=== PATIENT | female | born 1955 | race African-American/Black ===

== ENCOUNTER → 2016-08-04 | Outpatient (CLI) | payer BC, OTHER | LOC: RAD 15:29 | PROVIDERS: ATTEND Orthopaedic Surgery | DX: M54.2 Cervicalgia (principal); M47.892 Other spondylosis, cervical region | CPT/HCPCS: 71550; 72141 ==

== ENCOUNTER 2018-03-11 22:14 | Inpatient (IN) | payer BC, OTHER ==
[2018-03-11] MEDS ORDERED: NITROGLYCERIN/D5W 50 MG/250 ML RTUINJ IV ONE (22:23)
[2018-03-11] MEDS ORDERED: FUROSEMIDE INJ/PF 20 MG/2 ML SDV IV ONE (22:28)
--- NOTE | 2018-03-11 22:31 | ER Document Report ---
ED General - General Chief Complaint: Shortness Of Breath Stated Complaint: DIFFICULTY BREATHING Time Seen by Provider: 03/11/18 22:27 Cannot obtain history due to: Unstable vital signs Notes: Patient is a 62-year old female with a past medical history of hypertension which has been untreated for multiple years who presents in severe moderate to severe respiratory distress. History is limited on initial assessment secondary to the degree of the patient's respiratory distress. She describes her symptoms as starting shortly just prior to arrival and has been an abrupt onset of shortness of breath and coughing. She states this started when she was trying to lay down and go to sleep. She states that it was a sensation of choking and inability to take a deep breath. She denies any associated chest pain. Nothing seemed to improve or worsen symptoms. She denies any history of similar symptoms in the past. She does not have a general doctor. She denies known history of congestive heart failure or chronic kidney disease. States that she stopped taking her blood pressure medications years ago because her blood pressure was controlled. TRAVEL OUTSIDE OF THE [place] IN LAST 30 DAYS: No - Related Data Allergies/Adverse Reactions: aspirin [Aspirin] Adverse Reaction (Verified 03/11/18 22:26) Past Medical History - General Information source: Patient - Social History Smoking Status: Never Smoker Frequency of alcohol use: None Drug Abuse: None Lives with: Spouse/Significant other Family History: Reviewed & Not Pertinent - Past Medical History Cardiac Medical History: Reports: Hx Hypertension - Immunizations Immunizations up to date: Yes Hx Diphtheria, Pertussis, Tetanus Vaccination: Yes Review of Systems - Review of Systems Notes: Constitutional: Negative for fever. HENT: Negative for sore throat. Eyes: Negative for visual changes. Cardiovascular: Negative for chest pain. Respiratory: Positive for shortness of breath and cough Gastrointestinal: Negative for abdominal pain, vomiting or diarrhea. Genitourinary: Negative for dysuria. Musculoskeletal: Negative for back pain. Skin: Negative for rash. Neurological: Negative for headaches, weakness or numbness. 10 point ROS negative except as marked above and in HPI. Physical Exam - Vital signs Vitals: Temp Pulse Resp BP Pulse Ox 98.4 F 116 H 40 H 229/139 H 90 L 03/11/18 22:15 03/11/18 22:15 03/11/18 22:15 03/11/18 22:15 03/11/18 22:15 Interpretation: Hypertensive, Tachycardic, Hypoxic, Tachypneic Notes: PHYSICAL EXAMINATION: GENERAL: Patient is unwell in appearance, tachypneic, labored in her breathing HEAD: Atraumatic, normocephalic. EYES: Pupils equal round and reactive to light, extraocular movements intact, sclera anicteric, conjunctiva are normal. ENT: nares patent, oropharynx clear without exudates. Moderately dry mucous membranes. NECK: Normal range of motion, supple without lymphadenopathy LUNGS: Diffuse rales in all lung bettencourt. Moderate to severe respiratory distress breathing approximately 40 times per minute the time of initial evaluation with supraclavicular intercostal retractions. Unable to speak in full sentences. Diffuse B-lines on pleural ultrasound of the bedside. HEART: Regular tachycardia without murmurs ABDOMEN: Soft, nontender, normoactive bowel sounds. No guarding, no rebound. No masses appreciated. EXTREMITIES: Normal range of motion, trace edema in the bilateral lower extremities that is equal and symmetric. No cyanosis. NEUROLOGICAL: No focal neurological deficits. Moves all extremities spontaneously and on command. PSYCH: Moderately anxious SKIN: Warm, Dry, normal turgor, no rashes or lesions noted. Course - Re-evaluation Re-evalutation: 03/11/18 22:29 Patient augmentation as late as I been at the bedside continuously since she came back to the emergency department. In summary this patient presents in acute flash pulmonary edema with associated hypoxia, respiratory distress and marked hypertension. Initial blood pressures were 241 on 163 with associated tachycardia up to 120 bpm. A bedside pleural ultrasound does show diffuse B- lines. Patient has trace edema in the bilateral lower 70s. She has a history of hypertension but has been off medications for quite some years and I do suspect that the patient has new onset or previously undiagnosed congestive heart failure. The patient is not critical in appearance but it does have labored breathing, cannot complete a full sentence due to shortness of breath. Respiratory rate is currently 40 times per minute. She will therefore be immediately placed on BiPAP due to increased intrathoracic pressure and decrease pulmonary edema as well as assist with her work of breathing. I have pushed 1 mg of nitroglycerin IV to begin lowering her blood pressure. She was started nitroglycerin infusion starting at 120 mg/min. Will rapidly uptitrate by 10 mg every 5 minutes until the first pressure has come down to the 160 systolic range. Chest x-ray and labs are pending. Patient is critically ill, will require frequent and regular reassessments. 03/11/18 22:55 Patient's pressures have come down to the 170 systolic. Work of breathing is improving on BiPAP. Will continue to reassess at regular frequency 03/11/18 23:07 Patient's blood pressures are rapidly improving as is her work of breathing. Her blood pressure has come down into the 140s systolic and her nitroglycerin has been down titrated from 130 mg/min to 100 mcg/min. Will continue to reassess at regular intervals. 03/11/18 23:34 Patient's work of breathing has continued to improve dramatically. She is resting comfortably on BiPAP. Pressures and FiO2. Heart rate down to 87. I discussed with Dr. Bernal who has agreed to accept the patient as long as her chemistries are within acceptable limits. - Vital Signs Vital signs: Temp Pulse Resp BP Pulse Ox 97.7 F 87 22 H 171/107 H 99 03/12/18 02:24 03/12/18 02:24 03/12/18 02:24 03/12/18 02:24 03/12/18 02:24 - Laboratory Result Diagrams: 03/11/18 22:20 03/11/18 23:52 Laboratory results interpreted by me: 03/11/18 03/11/18 03/11/18 22:20 22:20 23:52 RDW 15.7 H Potassium 3.5 L BUN 24 H Est GFR (Non-Af Amer) 51 L Glucose 134 H AST 101 H ALT 80 H Creatine Kinase NT-Pro-B Natriuret Pep 2090 H 03/11/18 23:52 RDW Potassium BUN Est GFR (Non-Af Amer) Glucose AST ALT Creatine Kinase 140 H NT-Pro-B Natriuret Pep - Diagnostic Test Radiology reviewed: Image reviewed, Reports reviewed Radiology results interpreted by me: 03/12/18 03:13 Chest x-ray: Cardiomegaly, bilateral pulmonary edema - EKG Interpretation by Me Additional EKG results interpreted by me: 03/12/18 03:13 Sinus tachycardia. Rate 114. LVH. No ST elevations, subtle ST depressions in V6. QTC 480. Critical Care Note - Critical Care Note Total time excluding time spent on procedures (mins): 40 Comments: Critical care time spent obtaining history from patient or surrogate, discussions with consultants, development of treatment plan with patient or surrogate, evaluation of patient's response to treatment, examination of patient , ordering and performing treatments and interventions, ordering and review of laboratory studies, re-evaluation of patient's condition, ordering and review of radiographic studies and review of old charts Discharge - Discharge Clinical Impression: Flash pulmonary edema, Respiratory distress, Hypertensive emergency CHF (congestive heart failure) Qualifiers: Heart failure type: unspecified Heart failure chronicity: acute Qualified Code( s): I50.9 - Heart failure, unspecified Condition: Fair Disposition: ADMITTED INPATIENT Admitting Provider: Hospitalist Unit Admitted: ICU
[2018-03-11 22:33] LABS: ABSOLUTE BASOPHILS # (AUTO) 0.1 10^3/uL (0.0-0.2); ABSOLUTE EOSINOPHILS # (AUTO) 0.2 10^3/uL (0.0-0.6); ABSOLUTE LYMPHOCYTES (AUTO) 2.7 10^3/uL (0.5-4.7); ABSOLUTE MONOCYTES (AUTO) 0.6 10^3/uL (0.1-1.4); ABSOLUTE NEUT (AUTO) 4.8 10^3/uL (1.7-8.2); BASOPHILS % (AUTO) 0.8 % (0-2); EOSINOPHILS % (AUTO) 1.9 % (0-6); HEMATOCRIT 41.1 % (36.0-47.0); HEMOGLOBIN 13.6 g/dL (12.0-15.5); LYMPHOCYTES % (AUTO) 32.4 % (13-45); MEAN CORPUSCULAR HEMOGLOBIN 31.6 pg (27.0-33.4); MEAN CORPUSCULAR HGB CONC 33.2 g/dL (32.0-36.0); MEAN CORPUSCULAR VOLUME 95 fl (80-97); MONOCYTES % (AUTO) 6.8 % (3-13); PLATELET COUNT 197 10^3/uL (150-450); RED BLOOD COUNT 4.32 10^6/uL (3.72-5.28); RED CELL DISTRIBUTION WIDTH 15.7 % (11.5-14.0); SEGMENTED NEUTROPHILS % (AUTO) 58.1 % (42-78); TOTAL CELLS COUNTED % (AUTO) 100 %; WHITE BLOOD COUNT 8.3 10^3/uL (4.0-10.5)
[2018-03-11 22:34] LABS: VENOUS BLOOD HCO3 25.5 mmol/L (20-32); VENOUS BLOOD PCO2 41.6 mmHg (35-63); VENOUS BLOOD PH 7.41 (7.30-7.42)
[2018-03-11 22:35] LABS: VENOUS BLOOD BASE EXCESS 0.7 mmol/L
[2018-03-11 23:03] LABS: TROPONIN I 0.039 ng/mL
[2018-03-11] MEDS ORDERED: ONDANSETRON HCL INJ/PF 4 MG/2 ML SDV ONE (23:04)
--- NOTE | 2018-03-11 23:26 | RADIOLOGY REPORT (SQ) ---
EXAM DESCRIPTION: XR CHEST 1 VIEW COMPLETED DATE/TME: 03/11/2018 22:27 CLINICAL HISTORY: 62 years, Female, sob COMPARISON: None. NUMBER OF VIEWS: TECHNIQUE: LIMITATIONS: None. FINDINGS: There is cardiomegaly and congestive heart failure. There is interstitial pulmonary thickening, probably interstitial edema. No evidence of pulmonary consolidation. The mediastinum is unremarkable. IMPRESSION: Cardiomegaly with CHF and probable interstitial edema. 2010 [email or web address]- All Rights Reserved
[2018-03-12 00:25] LABS: ALANINE AMINOTRANSFERASE 80 U/L (9-52); ALBUMIN 3.8 g/dL (3.5-5.0); ALKALINE PHOSPHATASE 103 U/L (38-126); ANION GAP 11 (5-19); ASPARTATE AMINO TRANSFERASE 101 U/L (14-36); BILIRUBIN,DIRECT 0.2 mg/dL (0.0-0.4); BILIRUBIN,TOTAL 0.5 mg/dL (0.2-1.3); BLOOD UREA NITROGEN 24 mg/dL (7-20); CALCIUM 8.7 mg/dL (8.4-10.2); CARBON DIOXIDE 25 mmol/L (22-30); CHLORIDE 106 mmol/L (98-107); GLUCOSE 134 mg/dL (75-110); POTASSIUM 3.5 mmol/L (3.6-5.0); SODIUM 141.7 mmol/L (137-145); TOTAL PROTEIN 6.9 g/dL (6.3-8.2)
[2018-03-12] MEDS ORDERED: MAG HYDROX/AL HYDROX/SIMETH SUSP 30 ML UDCUP PO PRN (01:01)
[2018-03-12] MEDS ORDERED: IPRATROPIUM/ALBUTEROL 0.5-2.5 MG/3 ML AMPUL NEB PRN (01:01)
[2018-03-12] MEDS ORDERED: ACETAMINOPHEN 325 MG TABLET PO PRN (01:01)
[2018-03-12 01:39] LABS: URINE AMPHETAMINES SCREEN NEGATIVE; URINE BARBITURATES SCREEN NEGATIVE; URINE BENZODIAZEPINES SCREEN NEGATIVE; URINE COCAINE SCREEN NEGATIVE; URINE MARIJUANA (THC) SCREEN NEGATIVE; URINE METHADONE SCREEN NEGATIVE; URINE PHENCYCLIDINE SCREEN NEGATIVE
[2018-03-12] MEDS ORDERED: NITROGLYCERIN 50 MG/D5W 250 ML IV PRN (02:49)
[2018-03-12] MEDS: POTASSIUM CHLORIDE 10 MEQ CAPSULE.ER PO SCH ×3 (03:37→18:21)
[2018-03-12] MEDS: FUROSEMIDE INJ/PF 40 MG/4 ML SDV IV SCH ×3 (03:38→18:20)
--- NOTE | 2018-03-12 04:05 | PDOC H&P ---
History of Present Illness Admission Date/PCP: 03/12/18 01:01 Patient complains of: Shortness of breath History of Present Illness: MIKKI POWER is a 62 year old female with a past medical history of hypertension who presents with 18 hours of nonproductive cough associated with shortness of breath. In the emergency room she is found to have a blood pressure of 129/139 with a pulse of 116, chest x-ray reveals pulmonary edema. She receives IV nitroglycerin and placed on BiPAP. Patient does not have a primary care physician and denies blood pressure medication use for years with the belief that it was cured. She denies chest pain, heat intolerance, weight loss, and otherwise feels well. Past Medical History Cardiac Medical History: Reports: Hypertension Past Surgical History Past Surgical History: Reports: Tubal Ligation Social History Information Source: Patient Lives with: Spouse/Significant other Smoking Status: Never Smoker Cigarettes Packs Per Day: 0.5 Number of Years Smokin Frequency of Alcohol Use: None Hx Recreational Drug Use: No Drugs: None - Advance Directive Resuscitation Status: Full Code Family History Family History: Hypertension Parental Family History Reviewed: Yes Children Family History Reviewed: Yes Sibling(s) Family History Reviewed.: Yes Medication/Allergy Home Medications: Lisinopril [Prinivil 40 mg Tablet] 40 mg PO DAILY 10/16/12 Meclizine HCl [Antivert 12.5 mg Tablet] 1 tab PO DAILY PRN #30 tab 10/17/12 Allergies/Adverse Reactions: aspirin [Aspirin] Adverse Reaction (Verified 03/11/18 22:26) Review of Systems Constitutional: ABSENT: chills, fever(s), headache(s), weight gain, weight loss Eyes: ABSENT: visual disturbances Ears: ABSENT: hearing changes Cardiovascular: ABSENT: chest pain, dyspnea on exertion, edema, orthropnea, palpitations Respiratory: ABSENT: cough, hemoptysis Gastrointestinal: ABSENT: abdominal pain, constipation, diarrhea, hematemesis, hematochezia, nausea, vomiting Genitourinary: ABSENT: dysuria, hematuria Musculoskeletal: ABSENT: joint swelling Integumentary: ABSENT: rash, wounds Neurological: ABSENT: abnormal gait, abnormal speech, confusion, dizziness, focal weakness, syncope Psychiatric: ABSENT: anxiety, depression, homidical ideation, suicidal ideation Endocrine: ABSENT: cold intolerance, heat intolerance, polydipsia, polyuria Hematologic/Lymphatic: ABSENT: easy bleeding, easy bruising Physical Exam Vital Signs: Temp Pulse Resp BP Pulse Ox 97.7 F 87 22 H 171/107 H 99 03/12/18 02:24 03/12/18 02:24 03/12/18 02:24 03/12/18 02:24 03/12/18 02:24 Intake & Output 03/10/18 03/11/18 03/12/18 11:59 11:59 11:59 Intake Total 145 Output Total 228 Balance -83 Weight 74.9 kg General appearance: PRESENT: cooperative, mild distress. ABSENT: disheveled, hard of hearing, severe distress Head exam: PRESENT: atraumatic, normocephalic Eye exam: PRESENT: conjunctiva pink, EOMI, PERRLA. ABSENT: scleral icterus Ear exam: PRESENT: normal external ear exam Mouth exam: PRESENT: moist, tongue midline Neck exam: PRESENT: JVD. ABSENT: carotid bruit, lymphadenopathy, thyromegaly Respiratory exam: PRESENT: accessory muscle use, crackles, symmetrical, tachypnea, wheezes. ABSENT: chest wall tenderness, rhonchi Cardiovascular exam: PRESENT: gallop, +S1, +S2, tachycardia Pulses: PRESENT: normal dorsalis pedis pul Vascular exam: PRESENT: normal capillary refill GI/Abdominal exam: PRESENT: normal bowel sounds, soft. ABSENT: distended, guarding, mass, organolmegaly, rebound, tenderness Rectal exam: PRESENT: deferred Extremities exam: PRESENT: full ROM, +1 edema. ABSENT: calf tenderness, clubbing, pedal edema Neurological exam: PRESENT: alert, awake, oriented to person, oriented to place , oriented to time, oriented to situation, CN II-XII grossly intact. ABSENT: motor sensory deficit Psychiatric exam: PRESENT: appropriate affect, normal mood. ABSENT: homicidal ideation, suicidal ideation Skin exam: PRESENT: dry, intact, warm. ABSENT: cyanosis, rash Results Impressions: Chest X-Ray 03/11/18 22:27 IMPRESSION: Cardiomegaly with CHF and probable interstitial edema. 2010 [employer]- All Rights Reserved Assessment & Plan - Diagnosis (1) Hypertensive emergency Is this a current diagnosis for this admission?: Yes Plan: Secondary to noncompliance, IV nitroglycerin, PHYLLIS inhibitor, Lasix and hydralazine. (2) CHF (congestive heart failure) Qualifiers: Heart failure type: unspecified Heart failure chronicity: acute Qualified Code(s): I50.9 - Heart failure, unspecified Is this a current diagnosis for this admission?: Yes Plan: Likely diastolic failure, follow-up 2D echo, (3) Flash pulmonary edema Is this a current diagnosis for this admission?: Yes Plan: Secondary to #1, optimize blood pressure, volume, heart rate and education (4) Respiratory distress Is this a current diagnosis for this admission?: Yes Plan: Secondary to #1, education - Time Time Spent: 50 to 70 Minutes - Inpatient Certification Medical Necessity: Need Close Monitoring Due to Risk of Patient Decompensation
[2018-03-12] MEDS: HEPARIN SOD (PORCINE) 5,000 UNIT/ML 1 ML SYRINGE SUBCUT SCH ×3 (05:33→23:58)
[2018-03-12] MEDS: HYDRALAZINE HCL INJ/PF 20 MG/1 ML SDV IV PRN (05:33)
[2018-03-12 06:04] LABS: ABSOLUTE LYMPHOCYTES (AUTO) 1.1 10^3/uL (0.5-4.7); ABSOLUTE MONOCYTES (AUTO) 0.5 10^3/uL (0.1-1.4); ABSOLUTE NEUT (AUTO) 5.7 10^3/uL (1.7-8.2); BASOPHILS % (AUTO) 0.4 % (0-2); EOSINOPHILS % (AUTO) 0.2 % (0-6); HEMATOCRIT 36.3 % (36.0-47.0); HEMOGLOBIN 12.3 g/dL (12.0-15.5); LYMPHOCYTES % (AUTO) 15.5 % (13-45); MEAN CORPUSCULAR HEMOGLOBIN 31.6 pg (27.0-33.4); MEAN CORPUSCULAR HGB CONC 33.8 g/dL (32.0-36.0); MEAN CORPUSCULAR VOLUME 94 fl (80-97); MONOCYTES % (AUTO) 6.2 % (3-13); PLATELET COUNT 157 10^3/uL (150-450); RED BLOOD COUNT 3.89 10^6/uL (3.72-5.28); RED CELL DISTRIBUTION WIDTH 15.3 % (11.5-14.0); SEGMENTED NEUTROPHILS % (AUTO) 77.7 % (42-78); TOTAL CELLS COUNTED % (AUTO) 100 %; WHITE BLOOD COUNT 7.4 10^3/uL (4.0-10.5)
[2018-03-12 06:35] LABS: ANION GAP 9 (5-19); BLOOD UREA NITROGEN 24 mg/dL (7-20); CALCIUM 8.8 mg/dL (8.4-10.2); CARBON DIOXIDE 27 mmol/L (22-30); CHLORIDE 106 mmol/L (98-107); GLUCOSE 119 mg/dL (75-110); POTASSIUM 4.2 mmol/L (3.6-5.0); SODIUM 142.1 mmol/L (137-145)
[2018-03-12 06:44] LABS: CREATINE KINASE MB 1.31 ng/mL (<4.55)
[2018-03-12 06:54] LABS: TROPONIN I 0.049 ng/mL
[2018-03-12] MEDS: IPRATROPIUM/ALBUTEROL 0.5-2.5 MG/3 ML AMPUL NEB SCH ×2 (08:16→15:59)
[2018-03-12] MEDS ORDERED: AMLODIPINE BESYLATE 5 MG TABLET PO ONE (09:30)
[2018-03-12] MEDS ORDERED: LISINOPRIL 10 MG TABLET PO SCH (10:00)
--- NOTE | 2018-03-12 10:00 | EKG REPORT ---
SEVERITY:- ABNORMAL ECG - SINUS TACHYCARDIA BIATRIAL ABNORMALITIES LVH WITH SECONDARY REPOLARIZATION ABNORMALITY : Confirmed by: Beto Linton MD 12-Mar-2018 09:59:40
[2018-03-12 13:49] LABS: CREATINE KINASE MB 1.15 ng/mL (<4.55); TROPONIN I 0.049 ng/mL
--- NOTE | 2018-03-12 14:11 | PDOC CONSULTATION ---
Consultation Consult Date: 03/12/18 Attending physician:: JINA RICHARDS Consult reason:: Severe hypertension History of Present Illness Admission Date/PCP: 03/12/18 01:01 Patient complains of: Shortness of breath History of Present Illness: MIKKI POWER is a 62 year old female with a past medical history of hypertension who presents with 18 hours of nonproductive cough associated with shortness of breath. In the emergency room she is found to have a blood pressure of 229/139 with a pulse of 116, chest x-ray reveals pulmonary edema. She receives IV nitroglycerin and placed on BiPAP. Patient does not have a primary care physician and denies blood pressure medication use for years with the belief that it was cured. She denies chest pain, heat intolerance, weight loss, and otherwise feels well. I was asked to evaluate this patient because of mildly abnormal troponin I elevation and pulmonary edema. Patient denies any prior history of heart problems such as myocardial infarction , congestive heart failure, angina, strokes, mini strokes, heart rhythm problem , blood clots in the legs are in the lungs. Patient claims to be fairly healthy except for diagnosis of hypertension. Past Medical History Cardiac Medical History: Reports: Hypertension Past Surgical History Past Surgical History: Reports: Tubal Ligation Social History Information Source: Patient Lives with: Spouse/Significant other Smoking Status: Never Smoker Cigarettes Packs Per Day: 0.5 Number of Years Smokin Frequency of Alcohol Use: None Hx Recreational Drug Use: No Drugs: None - Advance Directive Resuscitation Status: Full Code Surrogate healthcare decision maker:: Patient's Family History Family History: Hypertension Parental Family History Reviewed: Yes Children Family History Reviewed: Yes Sibling(s) Family History Reviewed.: Yes Medication/Allergy Home Medications: Multivitamin [Multivitamins] 1 each PO DAILY 03/12/18 Carvedilol [Coreg 12.5 mg Tablet] 12.5 mg PO Q12 30 Days #60 tablet 03/15/18 Losartan Potassium [Cozaar 50 mg Tablet] 100 mg PO DAILY 30 Days #30 tablet Spironolactone [Aldactone 25 mg Tablet] 12.5 mg PO DAILY 30 Days #15 tablet Allergies/Adverse Reactions: aspirin [Aspirin] Adverse Reaction (Verified 03/11/18 22:26) Review of Systems Review of Systems: Please see history of present illness and past medical history as wall. Constitutional: No fever or chills reported. Head : No recent chronic headaches, recent head injury. Eyes: No recent eye pain, diplopia, redness, discharge, acute visual changes. Ears: No recent chronic ear pain, acute hearing loss, ear discharge. Oral cavity: No recent ulcerations, bleeding, oral cavity discomfort. Neck: No recent acute neck pain reported. Hematologic: No recent easy bruising or bleeding. Lymphatic: No recent lymph node enlargement reported. Cardiovascular system review: See history of present illness. Respiratory system review: No hemoptysis or blood clots in the lungs reported. Mild Shortness of breath on exertion Gastrointestinal system review: Negative for any recent acute hematemesis, melena. Genitourinary system review: No recent acute or chronic hematuria, flank pain, UTI etc. reported. Skin system review: Negative for any recent abnormal bruising, no rash, no pruritus reported. Neurologic: No prior history of strokes, mini strokes, seizure disorder. Psychologic: No history of major psychosis or major depression reported. Musculoskeletal: Minor aches and pains reported. No acute joint swelling reported. Endocrine: No recent polyuria, polydipsia, recent heat or cold intolerance. Physical Exam Vital Signs: Temp Pulse Resp BP Pulse Ox 100.5 F H 92 11 L 146/82 H 94 03/12/18 12:00 03/12/18 12:00 03/12/18 12:00 03/12/18 12:00 03/12/18 12:00 Intake & Output 03/11/18 03/12/18 03/13/18 06:59 06:59 06:59 Intake Total 187 420 Output Total 778 520 Balance -591 -100 Weight 74.9 kg Exam: GENERAL: well-nourished and in no acute distress. Alert and oriented x3 HEAD: Atraumatic, normocephalic. EYES: [place], sclera anicteric, conjunctiva are normal. ENT: Moist mucous membranes. No oral ulcerations or bleeding gums noted. No obvious ear, nose or throat abnormalities noted. NECK: supple without lymphadenopathy. Trachea is central. No cervical or axillary lymphadenopathy noted. Carotids are 2+, JVD WNL LUNGS: Breath sounds clear bilaterally. No wheezes rales or rhonchi noted. No significant dullness noted on percussion. CHEST: Palpation of the chest wall shows no significant chest wall tenderness. HEART: [place] [employer], No PSH, 1/6 ABDIAZIZ aortic area, 1/6 hickey systolic murmur mitral area, no rubs, no gallops. ABDOMEN: Soft, no significant tenderness appreciated, normoactive bowel sounds. No guarding, no rebound. No rigidity noted . No masses appreciated. EXTREMITIES: Pedal pulses are 1-2+, no calf tenderness noted. No clubbing or cyanosis. negative pedal edema noted NEUROLOGICAL: Focused neurological exam showed no significant neurologic deficit. Normal speech, no focal weakness appreciated. PSYCH: Normal mood, normal affect. Judgment and insight within normal limits. SKIN: No significant ecchymosis, skin is noted to be warm. MUSCULOSKELETAL EXAM: No significant acute joint swelling noted. Results Laboratory Results: 03/12/18 05:58 03/12/18 05:58 03/12/18 03/12/18 03/12/18 05:58 05:58 05:58 WBC 7.4 RBC 3.89 Hgb 12.3 Hct 36.3 MCV 94 MCH 31.6 MCHC 33.8 RDW 15.3 H Plt Count 157 Seg Neutrophils % 77.7 Lymphocytes % 15.5 Monocytes % 6.2 Eosinophils % 0.2 Basophils % 0.4 Absolute Neutrophils 5.7 Absolute Lymphocytes 1.1 Absolute Monocytes 0.5 Absolute Eosinophils 0.0 Absolute Basophils 0.0 Sodium 142.1 Potassium 4.2 Chloride 106 Carbon Dioxide 27 Anion Gap 9 BUN 24 H Creatinine 1.17 Est GFR ( Amer) 57 L Est GFR (Non-Af Amer) 47 L Glucose 119 H Calcium 8.8 Magnesium 1.8 03/12/18 03/12/18 03/12/18 05:58 05:58 12:00 Creatine Kinase 124 130 CK-MB (CK-2) 1.31 Troponin I 0.049 03/12/18 12:00 Creatine Kinase CK-MB (CK-2) 1.15 Troponin I 0.049 EKG Comments: Sinus rhythm, LVH with secondary ST-T wave changes Impressions: Chest X-Ray 03/11/18 22:27 IMPRESSION: Cardiomegaly with CHF and probable interstitial edema. 2010 [employer]- All Rights Reserved Assessment & Plan - Diagnosis (1) Hypertensive emergency Is this a current diagnosis for this admission?: Yes (2) CHF (congestive heart failure) Qualifiers: Heart failure type: unspecified Heart failure chronicity: acute Qualified Code(s): I50.9 - Heart failure, unspecified Is this a current diagnosis for this admission?: Yes (3) Flash pulmonary edema Is this a current diagnosis for this admission?: Yes (4) Respiratory distress Is this a current diagnosis for this admission?: Yes - Notes Notes: Hypertensive emergency: Continue with current management plans. Taper nitroglycerin to DC as allowed by blood pressure. Start patient on carvedilol. CHF: Recommend diuretic therapy. Recommend stat 2D echo to evaluate CHF. Pulmonary edema: Possibly related to severe hypertension. Need to rule out underlying systolic and or diastolic dysfunction. Agree with diuretic therapy. Continue IV nitroglycerin but taper as patient improves. Respiratory distress: Patient denies any history of COPD or asthma. Therefore this is most likely related to acute pulmonary edema brought on by severe hypertension. Need to rule out underlying LV systolic/diastolic dysfunction, valvular heart disease etc. - Time Time Spent: 30 to 50 Minutes - CODE STATUS was discussed, patient remains full code. Surrogate decision-maker patient's . Multiple medical problems were addressed. More than 50% of the time spent coordinating care, discussing management plans with involved caregivers. Management plans discussed with involved personnels. Medical decision making was of moderate to high complexity , patient's has multiple comorbidities. Medications reviewed and adjusted accordingly: Yes
[2018-03-12] MEDS: CARVEDILOL 3.125 MG TABLET PO SCH ×2 (15:50→23:58)
--- NOTE | 2018-03-12 20:18 | XCELERA REPORT ---
[address] [address] Transthoracic Echocardiogram Report Name: MIKKI POWER Age: 62 yrs Gender: Female : 1955 Patient Status: Inpatient Patient Location: ICU^607^A Study Date: 03/12/2018 04:56 PM Height: 63 in Weight: 165 lb BSA: 1.8 m2 Procedure: A complete two-dimensional transthoracic echocardiogram was performed (2D, M-mode, spectral and color flow Doppler). The study was technically adequate with some images being suboptimal in quality. Reason For Study: Uncontrolled HTN Ordering Physician: JORDAN GRIFFITH Performed By: Sheldon Kat Interpretation Summary The left ventricular ejection fraction is within normal limits. LV diastolic function could not be adequately assessed. The right ventricular systolic function is normal. The left atrium is mildly dilated. There is a mild amount of mitral regurgitation.No or MS noted Minimal pericardial effusion. MMode/2D Measurements & Calculations RVDd: 2.2 cm LVIDd: 4.9 cm FS: 26.5 % Ao root diam: 2.9 cm IVSd: 1.2 cm LVIDs: 3.6 cm EDV(Teich): 112.0 ml Ao root area: 6.8 cm2 LVPWd: 1.3 cm ESV(Teich): 54.1 ml EF(Teich): 51.7 % LVOT diam: 2.1 cm LVOT area: 3.6 cm2 Doppler Measurements & Calculations MV E max nena: MV dec slope: Ao V2 max: LV V1 max P.9 cm/sec 593.1 cm/sec2 126.5 cm/sec 4.2 mmHg MV A max nena: MV dec time: 0.09 secAo max PG: LV V1 max: 53.4 cm/sec 6.4 mmHg 103.0 cm/sec MV E/A: 0.97 BRUCE(V,D): 2.9 cm2 PA V2 max: PI end-d nena: 123.0 cm/sec 106.6 cm/sec PA max P.1 mmHg Left Ventricle The left ventricle is grossly normal size. There is moderate concentric left ventricular hypertrophy. The left ventricular ejection fraction is within normal limits. LV diastolic function could not be adequately assessed. Wall motion cannot be accurately commented on, but no definite regional wall motion abnormalities noted. Right Ventricle The right ventricle is grossly normal size. The right ventricular systolic function is normal. Atria The right atrium is normal in size. The left atrium is mildly dilated. Mitral Valve The mitral valve is grossly normal. There is no mitral valve stenosis. There is a mild amount of mitral regurgitation. Aortic Valve The aortic valve is grossly normal. There is no aortic valve stenosis. No aortic regurgitation is present. Tricuspid Valve The tricuspid valve is not well visualized, but is grossly normal. There is no tricuspid stenosis. There is a trace or physiologic amount of tricuspid regurgitation. Tricuspid regurgitation jet envelope not well defined to measure RV systolic pressure accurately. Pulmonic Valve The pulmonic valve is not well visualized. Great Vessels The aortic root is not well visualized but is probably normal size. The inferior vena cava was not well visualized. Effusions Minimal pericardial effusion. : JORDAN GRIFFITH > Jordan Griffith
[2018-03-13] MEDS: IPRATROPIUM/ALBUTEROL 0.5-2.5 MG/3 ML AMPUL NEB SCH ×4 (00:09→23:55)
[2018-03-13] MEDS: HYDRALAZINE HCL INJ/PF 20 MG/1 ML SDV IV PRN (02:30)
[2018-03-13 04:23] LABS: ABSOLUTE EOSINOPHILS # (AUTO) 0.1 10^3/uL (0.0-0.6); ABSOLUTE LYMPHOCYTES (AUTO) 1.5 10^3/uL (0.5-4.7); ABSOLUTE MONOCYTES (AUTO) 0.9 10^3/uL (0.1-1.4); ABSOLUTE NEUT (AUTO) 7.7 10^3/uL (1.7-8.2); BASOPHILS % (AUTO) 0.4 % (0-2); EOSINOPHILS % (AUTO) 0.5 % (0-6); HEMOGLOBIN 12.8 g/dL (12.0-15.5); LYMPHOCYTES % (AUTO) 15.1 % (13-45); MEAN CORPUSCULAR HEMOGLOBIN 31.7 pg (27.0-33.4); MEAN CORPUSCULAR HGB CONC 33.6 g/dL (32.0-36.0); MEAN CORPUSCULAR VOLUME 94 fl (80-97); MONOCYTES % (AUTO) 8.7 % (3-13); PLATELET COUNT 179 10^3/uL (150-450); RED BLOOD COUNT 4.02 10^6/uL (3.72-5.28); RED CELL DISTRIBUTION WIDTH 15.4 % (11.5-14.0); SEGMENTED NEUTROPHILS % (AUTO) 75.3 % (42-78); TOTAL CELLS COUNTED % (AUTO) 100 %; WHITE BLOOD COUNT 10.2 10^3/uL (4.0-10.5)
[2018-03-13 04:43] LABS: ANION GAP 10 (5-19); BLOOD UREA NITROGEN 32 mg/dL (7-20); CALCIUM 9.2 mg/dL (8.4-10.2); CARBON DIOXIDE 25 mmol/L (22-30); CHLORIDE 105 mmol/L (98-107); GLUCOSE 109 mg/dL (75-110); POTASSIUM 4.4 mmol/L (3.6-5.0)
[2018-03-13] MEDS: HEPARIN SOD (PORCINE) 5,000 UNIT/ML 1 ML SYRINGE SUBCUT SCH ×3 (05:44→22:01)
[2018-03-13] MEDS ORDERED: FUROSEMIDE INJ/PF 40 MG/4 ML SDV IV SCH (10:00)
[2018-03-13] MEDS: CARVEDILOL 3.125 MG TABLET PO SCH (10:00)
[2018-03-13] MEDS: AMLODIPINE BESYLATE 10 MG TABLET PO SCH (10:01)
[2018-03-13] MEDS ORDERED: SENNOSIDES/DOCUSATE 8.6-50 MG 1 EACH TABLET PO ONE (10:38)
[2018-03-13] MEDS ORDERED: SENNOSIDES/DOCUSATE 8.6-50 MG 1 EACH TABLET PO PRN (10:38)
--- NOTE | 2018-03-13 11:15 | RADIOLOGY REPORT (SQ) ---
EXAM DESCRIPTION: CHEST SINGLE VIEW COMPLETED DATE/TIME: 03/13/2018 11:05 am REASON FOR STUDY: reassess congestion COMPARISON: 03/11/2018 EXAM PARAMETERS: NUMBER OF VIEWS: One view. TECHNIQUE: Single frontal radiographic view of the chest acquired. RADIATION DOSE: NA LIMITATIONS: None. FINDINGS: LUNGS AND PLEURA: Interval resolution of the interstitial edema since the previous examin ation. No acute pulmonary consolidation. No pneumothorax or pleural effusion. MEDIASTINUM AND HILAR STRUCTURES: No masses. Contour normal. HEART AND VASCULAR STRUCTURES: Cardiomegaly, stable finding. Interval resolution of pulmonary vascu lar congestion. BONES: No acute findings. HARDWARE: None in the chest. OTHER: No other significant finding. IMPRESSION: 1. Interval resolution of interstitial edema and pulmonary vascular congestion since th e prior study dated 03/11/2018. 2. Stable cardiomegaly. TECHNICAL DOCUMENTATION: JOB ID: [id number] [employer]- All Rights Reserved Reading location - IP/workstation name: [email or web address]
[2018-03-13] MEDS: CARVEDILOL 6.25 MG TABLET PO SCH ×2 (15:26→22:01)
--- NOTE | 2018-03-13 15:37 | PDOC PROGRESS REPORT ---
Subjective Progress Note for:: 03/13/18 Subjective:: Ms. Javier is a 62 yr old female with a PMH of hypertension who initially presented with acute SOB. Patient was diagnosed to have acute pulmonary edema secondary to hypertensive emergency. She was started on nitro drip and was placed on BIPAP. No acute event overnight. She has been weaned off nitro gtt and has been off BIPAP as well. Blood pressures have significantly improved in the 130/70s. She says her SOB has resolved. She denies chest pain or palpitations. Reason For Visit: HTN EMERG, PULMONARY EDEMA Physical Exam Vital Signs: Temp Pulse Resp BP Pulse Ox 98.6 F 102 H 32 H 135/74 H 96 03/13/18 08:00 03/13/18 12:48 03/13/18 14:00 03/13/18 13:50 03/13/18 14:00 Intake & Output 03/12/18 03/13/18 03/14/18 06:59 06:59 06:59 Intake Total 187 1042 200 Output Total 778 1770 500 Balance -591 -728 -300 Weight 165 lb 2.02 oz 165 lb 2.02 oz General appearance: PRESENT: no acute distress, well-developed, well-nourished Head exam: PRESENT: atraumatic, normocephalic Eye exam: PRESENT: conjunctiva pink, EOMI, PERRLA. ABSENT: scleral icterus Ear exam: PRESENT: normal external ear exam Mouth exam: PRESENT: moist, tongue midline Neck exam: ABSENT: carotid bruit, JVD, lymphadenopathy, thyromegaly Respiratory exam: PRESENT: clear to auscultation joe, rales - very fine rales on the bases. ABSENT: rhonchi, wheezes Cardiovascular exam: PRESENT: RRR. ABSENT: diastolic murmur, rubs, systolic murmur Pulses: PRESENT: normal dorsalis pedis pul GI/Abdominal exam: PRESENT: normal bowel sounds, soft. ABSENT: distended, guarding, mass, organolmegaly, rebound, tenderness Rectal exam: PRESENT: deferred Extremities exam: PRESENT: full ROM. ABSENT: calf tenderness, clubbing, pedal edema Neurological exam: PRESENT: alert, awake, oriented to person, oriented to place , oriented to time, oriented to situation, CN II-XII grossly intact. ABSENT: motor sensory deficit Results Laboratory Results: 03/13/18 04:01 03/13/18 04:01 03/13/18 03/13/18 04:01 04:01 WBC 10.2 RBC 4.02 Hgb 12.8 Hct 38.0 MCV 94 MCH 31.7 MCHC 33.6 RDW 15.4 H Plt Count 179 Seg Neutrophils % 75.3 Lymphocytes % 15.1 Monocytes % 8.7 Eosinophils % 0.5 Basophils % 0.4 Absolute Neutrophils 7.7 Absolute Lymphocytes 1.5 Absolute Monocytes 0.9 Absolute Eosinophils 0.1 Absolute Basophils 0.0 Sodium 140.0 Potassium 4.4 Chloride 105 Carbon Dioxide 25 Anion Gap 10 BUN 32 H Creatinine 1.34 H Est GFR ( Amer) 49 L Est GFR (Non-Af Amer) 40 L Glucose 109 Calcium 9.2 03/12/18 03/12/18 03/12/18 05:58 05:58 12:00 Creatine Kinase 124 130 CK-MB (CK-2) 1.31 Troponin I 0.049 03/12/18 12:00 Creatine Kinase CK-MB (CK-2) 1.15 Troponin I 0.049 Impressions: Chest X-Ray 03/13/18 10:37 IMPRESSION: 1. Interval resolution of interstitial edema and pulmonary vascular congestion since the prior study dated 03/11/2018. 2. Stable cardiomegaly. Assessment & Plan - Diagnosis (1) Hypertensive emergency Is this a current diagnosis for this admission?: Yes Plan: Resolved. Off nitro drip. She was on lisinopril before but has not been on any antihypertensive as she says she was "cured" from HTN. She has been started on amlodipine 10 mg daily and Coreg 6.25 mg bid. Family does not want her to be on any ACEi. (2) Acute respiratory failure with hypoxia Is this a current diagnosis for this admission?: Yes Plan: Secondary to acute pulmonary edema. Patient was initially placed on BIPAP on admission. She has been saturating well on nasal cannula. (3) Flash pulmonary edema Is this a current diagnosis for this admission?: Yes Plan: Resolved. She was started on Lasix 40 mg q8 x 3 doses. This was decreased to 40 mg daily. Her creatinine went up to 1.3 from 1.0. Repeat chest x-ray shows resolution of the pulmonary edema. She still had a minimal fine rales on the bases. Will reduce Lasix to 20 mg daily PO. Cardiology following. Echo ordered. (4) Elevated troponin Is this a current diagnosis for this admission?: Yes Plan: Mildly elevated troponin possibly from demand during hypertensive emergency. - Time Time Spent with patient: 15-24 minutes
--- NOTE | 2018-03-13 20:01 | PDOC PROGRESS REPORT ---
Subjective Progress Note for:: 03/13/18 Subjective:: Blood pressure coming under control very gradually. Patient seems to be doing better with gradual improvement. Pt is denying any chest arm or neck discomfort. Patient denying any PND, orthopnea. Patient denied any sustained palpitations, dizziness, syncope, near syncope. Patient denying any fever chills. Patient denying any other significant discomfort. Patient is maintaining sinus rhythm. Review of systems: Rest review of systems negative. Medications: Medications have been reviewed. Reason For Visit: HTN EMERG, PULMONARY EDEMA Physical Exam Vital Signs: Temp Pulse Resp BP Pulse Ox 98.6 F 92 30 H 120/75 95 03/13/18 08:00 03/13/18 16:35 03/13/18 19:00 03/13/18 18:51 03/13/18 19:00 Intake & Output 03/12/18 03/13/18 03/14/18 06:59 06:59 06:59 Intake Total 187 1042 500 Output Total 778 1770 750 Balance -591 -728 -250 Weight 74.9 kg 74.9 kg Exam: GENERAL: well-nourished and in no acute distress. Alert and oriented x3 HEAD: Atraumatic, normocephalic. EYES: LÁZARO, sclera anicteric, conjunctiva are normal. ENT: Moist mucous membranes. No oral ulcerations or bleeding gums noted. No obvious ear, nose or throat abnormalities noted. NECK: supple without lymphadenopathy. Trachea is central. No cervical or axillary lymphadenopathy noted. Carotids are 2+, JVD WNL LUNGS: Breath sounds clear bilaterally. No wheezes rales or rhonchi noted. No significant dullness noted on percussion. CHEST: Palpation of the chest wall shows no significant chest wall tenderness. 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 ABDOMEN: Soft, no significant tenderness appreciated, normoactive bowel sounds. No guarding, no rebound. No rigidity noted . No masses appreciated. EXTREMITIES: Pedal pulses are 1-2+, no calf tenderness noted. No clubbing or cyanosis. negative pedal edema noted NEUROLOGICAL: Focused neurological exam showed no significant neurologic deficit. Normal speech, no focal weakness appreciated. PSYCH: Normal mood, normal affect. Judgment and insight within normal limits. SKIN: No significant ecchymosis, skin is noted to be warm. MUSCULOSKELETAL EXAM: No significant acute joint swelling noted. Results Laboratory Results: 03/13/18 04:01 03/13/18 04:01 03/13/18 03/13/18 04:01 04:01 WBC 10.2 RBC 4.02 Hgb 12.8 Hct 38.0 MCV 94 MCH 31.7 MCHC 33.6 RDW 15.4 H Plt Count 179 Seg Neutrophils % 75.3 Lymphocytes % 15.1 Monocytes % 8.7 Eosinophils % 0.5 Basophils % 0.4 Absolute Neutrophils 7.7 Absolute Lymphocytes 1.5 Absolute Monocytes 0.9 Absolute Eosinophils 0.1 Absolute Basophils 0.0 Sodium 140.0 Potassium 4.4 Chloride 105 Carbon Dioxide 25 Anion Gap 10 BUN 32 H Creatinine 1.34 H Est GFR ( Amer) 49 L Est GFR (Non-Af Amer) 40 L Glucose 109 Calcium 9.2 03/12/18 03/12/18 03/12/18 05:58 05:58 12:00 Creatine Kinase 124 130 CK-MB (CK-2) 1.31 Troponin I 0.049 03/12/18 12:00 Creatine Kinase CK-MB (CK-2) 1.15 Troponin I 0.049 EKG Comments: Telemetry shows sinus rhythm without any sustained tachycardia or bradycardia. Impressions: Chest X-Ray 03/13/18 10:37 IMPRESSION: 1. Interval resolution of interstitial edema and pulmonary vascular congestion since the prior study dated 03/11/2018. 2. Stable cardiomegaly. Assessment & Plan - Diagnosis (1) Hypertensive emergency Is this a current diagnosis for this admission?: Yes (2) CHF (congestive heart failure) Qualifiers: Heart failure type: unspecified Heart failure chronicity: acute Qualified Code(s): I50.9 - Heart failure, unspecified Is this a current diagnosis for this admission?: Yes (3) Flash pulmonary edema Is this a current diagnosis for this admission?: Yes (4) Respiratory distress Is this a current diagnosis for this admission?: Yes - Notes Notes: Patient scheduled for a nuclear stress test. Hypertensive emergency: Continue with current management plans. Patient to be off nitro drip. Have increased carvedilol to 6.25 mg p.o. every 12. Continue other antihypertensives.. CHF: Recommend diuretic therapy. 2D echo shows normal LVEF and diastolic dysfunction. 2D echo results reviewed with the patient. Questions were answered. Pulmonary edema: Possibly related to severe hypertension. Need to rule out underlying systolic and or diastolic dysfunction. Agree with diuretic therapy. Respiratory distress: Patient denies any history of COPD or asthma. Therefore this is most likely related to acute pulmonary edema brought on by severe hypertension. Need to rule out underlying LV systolic/diastolic dysfunction, valvular heart disease etc. - Time Time with patient: Greater than 35 minutes - More than 50% of the time spent coordinating care, discussing management plans with involved caregivers. Management plans discussed with involved personnels. Medical decision making was of moderate to high complexity, patient's has multiple comorbidities. Medications reviewed and adjusted accordingly: Yes
--- NOTE | 2018-03-13 20:12 | EKG REPORT ---
SEVERITY:- ABNORMAL ECG - SINUS RHYTHM PROBABLE LEFT ATRIAL ABNORMALITY LVH WITH SECONDARY REPOLARIZATION ABNORMALITY : Confirmed by: Jordan Nava 13-Mar-2018 20:11:37
[2018-03-14] MEDS: HEPARIN SOD (PORCINE) 5,000 UNIT/ML 1 ML SYRINGE SUBCUT SCH ×3 (05:22→21:19)
[2018-03-14] MEDS: IPRATROPIUM/ALBUTEROL 0.5-2.5 MG/3 ML AMPUL NEB SCH (07:55)
[2018-03-14] MEDS: CARVEDILOL 6.25 MG TABLET PO SCH (09:26)
[2018-03-14] MEDS: AMLODIPINE BESYLATE 10 MG TABLET PO SCH (09:26)
[2018-03-14] MEDS ORDERED: SPIRONOLACTONE 25 MG TABLET PO SCH (10:00)
[2018-03-14] MEDS ORDERED: FUROSEMIDE 20 MG TABLET PO SCH (10:00)
--- NOTE | 2018-03-14 10:02 | EKG REPORT ---
SEVERITY:- ABNORMAL ECG - SINUS RHYTHM BIATRIAL ABNORMALITIES LVH WITH SECONDARY REPOLARIZATION ABNORMALITY : Confirmed by: Jordan Nava 14-Mar-2018 10:00:25
[2018-03-14] MEDS: SPIRONOLACTONE 25 MG TABLET PO SCH (11:55)
[2018-03-14] MEDS: LOSARTAN POTASSIUM 50 MG TABLET PO SCH (11:55)
[2018-03-14] MEDS: IPRATROPIUM BROMIDE 0.02% NEB 0.5 MG/2.5 ML AMPUL NEB SCH ×2 (16:39→23:56)
[2018-03-14] MEDS: LEVALBUTEROL HCL NEB 1.25 MG/3 ML AMPUL NEB SCH ×2 (16:39→23:56)
--- NOTE | 2018-03-14 19:47 | PDOC PROGRESS REPORT ---
Subjective Progress Note for:: 03/14/18 Subjective:: Ms. Javier is a 62 yr old female with acute onset of dyspnea just prior to her arrival in the emergency room. A diagnosis of acute pulmonary edema secondary to hypertensive emergency was made in the emergency room and at that point she was started on nitro drip and was placed on BIPAP. Treatment was continued over the first night of her care and by the next day she was significantly improved with excellent antihypertensive control with no chest pain and and no further dyspnea. 03/14/2018: Suri states she is feeling much better today and is delighted to know that we are converting her to oral medications and as long as her blood pressure remains well controlled she will be discharged tomorrow. She has been tolerating a cardiac diet well without nausea, vomiting, abdominal pain or dyspepsia. Her dyspnea remains resolved and she continues to be free of chest pain. Her blood pressures today have been well controlled in the sub-150/90 range. Reason For Visit: HTN EMERG, PULMONARY EDEMA Physical Exam Vital Signs: Temp Pulse Resp BP Pulse Ox 99.9 F 75 18 145/81 H 95 03/14/18 16:01 03/14/18 16:39 03/14/18 16:39 03/14/18 16:01 03/14/18 16:39 Intake & Output 03/12/18 03/13/18 03/14/18 23:59 23:59 23:59 Intake Total 1227 502 591 Output Total 2148 1150 Balance -921 -648 591 Weight 74.9 kg 74.9 kg 76.7 kg General appearance: PRESENT: no acute distress, cooperative Head exam: PRESENT: atraumatic, normocephalic Eye exam: ABSENT: conjunctival injection, periorbital swelling, scleral icterus Ear exam: PRESENT: normal external ear exam. ABSENT: drainage Mouth exam: PRESENT: neck supple, tongue midline Neck exam: ABSENT: thyromegaly, tracheal deviation Respiratory exam: PRESENT: clear to auscultation joe, symmetrical, unlabored Cardiovascular exam: PRESENT: RRR. ABSENT: clicks, gallop, rubs Vascular exam: PRESENT: normal capillary refill. ABSENT: pallor GI/Abdominal exam: PRESENT: normal bowel sounds, soft Rectal exam: PRESENT: deferred Extremities exam: ABSENT: joint swelling, pedal edema Musculoskeletal exam: PRESENT: full ROM, normal inspection Neurological exam: PRESENT: alert, oriented to person, oriented to place, oriented to time, oriented to situation Psychiatric exam: PRESENT: appropriate affect, normal mood Skin exam: ABSENT: jaundice, rash, urticaria Results Laboratory Results: 03/13/18 04:01 03/13/18 04:01 03/12/18 03/12/18 03/12/18 05:58 05:58 12:00 Creatine Kinase 124 130 CK-MB (CK-2) 1.31 Troponin I 0.049 03/12/18 12:00 Creatine Kinase CK-MB (CK-2) 1.15 Troponin I 0.049 Impressions: Chest X-Ray 03/13/18 10:37 IMPRESSION: 1. Interval resolution of interstitial edema and pulmonary vascular congestion since the prior study dated 03/11/2018. 2. Stable cardiomegaly. Assessment & Plan - Diagnosis (1) Acute respiratory failure with hypoxia Is this a current diagnosis for this admission?: Yes Plan: Emergency room patient had acute pulmonary edema with acute respiratory failure and hypoxia. This is treated with a nitroglycerin drip and supplemental oxygen. BiPAP was also employed to assist the patient with her acute respiratory failure. Patient responded well to treatment and by the next morning was no longer requiring further intervention and respiratory failure with hypoxia had resolved. (2) Elevated troponin Is this a current diagnosis for this admission?: Yes Plan: Patient's troponins were mildly elevated but not significant for cardiac ischemia or injury. The most likely reflect the myocardial strain of her acute hypertensive emergency. The troponin levels have remained stable. (3) Flash pulmonary edema Is this a current diagnosis for this admission?: Yes Plan: Patient was noted to have acute pulmonary edema in the emergency room consistent with flash pulmonary edema due to her hypertensive emergency. As a hypertensive emergency was treated the pulmonary edema rapidly resolved and the associated acute respiratory failure with hypoxia also resolved. (4) Hypertensive emergency Is this a current diagnosis for this admission?: Yes Plan: Patient was acutely hypertensive in the emergency room and was treated with intravenous nitroglycerin. Treatment was continued overnight with the nitroglycerin dose being titrated down and by the morning her blood pressure was well enough controlled that the nitroglycerin had been discontinued. The patient's hypertensive emergency has resolved. - Time Time Spent with patient: 15-24 minutes Medications reviewed and adjusted accordingly: Yes Anticipated discharge: Home Within: within 24 hours
--- NOTE | 2018-03-14 20:29 | PDOC PROGRESS REPORT ---
Subjective Progress Note for:: 03/14/18 Subjective:: Blood pressure coming under control very gradually. Patient seems to be doing better with gradual improvement. Pt is denying any chest arm or neck discomfort. Patient denying any PND, orthopnea. Patient denied any sustained palpitations, dizziness, syncope, near syncope. Patient denying any fever chills. Patient denying any other significant discomfort. Patient is maintaining sinus rhythm. Review of systems: Rest review of systems negative. Medications: Medications have been reviewed. Reason For Visit: HTN EMERG, PULMONARY EDEMA Physical Exam Vital Signs: Temp Pulse Resp BP Pulse Ox 99.8 F 86 16 121/68 97 03/14/18 19:32 03/14/18 19:32 03/14/18 19:32 03/14/18 19:32 03/14/18 19:32 Intake & Output 03/13/18 03/14/18 03/15/18 06:59 06:59 06:59 Intake Total 1042 500 591 Output Total 1770 750 Balance -728 -250 591 Weight 74.9 kg 76.7 kg Exam: GENERAL: well-nourished and in no acute distress. Alert and oriented x3 HEAD: Atraumatic, normocephalic. EYES: LÁZARO, sclera anicteric, conjunctiva are normal. ENT: Moist mucous membranes. No oral ulcerations or bleeding gums noted. No obvious ear, nose or throat abnormalities noted. NECK: supple without lymphadenopathy. Trachea is central. No cervical or axillary lymphadenopathy noted. Carotids are 2+, JVD WNL LUNGS: Breath sounds clear bilaterally. No wheezes rales or rhonchi noted. No significant dullness noted on percussion. CHEST: Palpation of the chest wall shows no significant chest wall tenderness. 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 ABDOMEN: Soft, no significant tenderness appreciated, normoactive bowel sounds. No guarding, no rebound. No rigidity noted . No masses appreciated. EXTREMITIES: Pedal pulses are 1-2+, no calf tenderness noted. No clubbing or cyanosis. negative pedal edema noted NEUROLOGICAL: Focused neurological exam showed no significant neurologic deficit. Normal speech, no focal weakness appreciated. PSYCH: Normal mood, normal affect. Judgment and insight within normal limits. SKIN: No significant ecchymosis, skin is noted to be warm. MUSCULOSKELETAL EXAM: No significant acute joint swelling noted. Results Laboratory Results: 03/13/18 04:01 03/13/18 04:01 03/12/18 03/12/18 03/12/18 05:58 05:58 12:00 Creatine Kinase 124 130 CK-MB (CK-2) 1.31 Troponin I 0.049 03/12/18 12:00 Creatine Kinase CK-MB (CK-2) 1.15 Troponin I 0.049 EKG Comments: Telemetry shows sinus rhythm without any sustained tachycardia or bradycardia. Impressions: Chest X-Ray 03/13/18 10:37 IMPRESSION: 1. Interval resolution of interstitial edema and pulmonary vascular congestion since the prior study dated 03/11/2018. 2. Stable cardiomegaly. Assessment & Plan - Diagnosis (1) Hypertensive emergency Is this a current diagnosis for this admission?: Yes (2) CHF (congestive heart failure) Qualifiers: Heart failure type: unspecified Heart failure chronicity: acute Qualified Code(s): I50.9 - Heart failure, unspecified Is this a current diagnosis for this admission?: Yes (3) Flash pulmonary edema Is this a current diagnosis for this admission?: Yes (4) Respiratory distress Is this a current diagnosis for this admission?: Yes - Notes Notes: Increase carvedilol to 12.5 mg p.o. every 12. Final destination would be 25 p.o. every 12 if patient can tolerate it. Patient also scheduled for a stress test. Hypertensive emergency: Continue with current management plans. Have increased carvedilol to 12.5 mg p.o. every 12. Continue other antihypertensives.. CHF: Recommend diuretic therapy. 2D echo shows normal LVEF and diastolic dysfunction. 2D echo results reviewed with the patient. Questions were answered. Patient noted to have LVH. Pulmonary edema: Possibly related to severe hypertension. Need to rule out underlying systolic and or diastolic dysfunction. Recommend baseline low-dose diuretic therapy. Respiratory distress: Patient denies any history of COPD or asthma. Therefore this is most likely related to acute pulmonary edema brought on by severe hypertension. Other condition ruled out by 2D echo. Need to rule out coronary ischemia as cause of precipitation of pulmonary edema and severe hypertension. - Time Time with patient: Greater than 35 minutes - CODE STATUS was discussed, patient remains full code. Surrogate decision-maker unchanged. Multiple medical problems were addressed. More than 50% of the time spent coordinating care, discussing management plans with involved caregivers. Management plans discussed with involved personnels. Medical decision making was of moderate to high complexity, patient's has multiple comorbidities. Medications reviewed and adjusted accordingly: Yes
[2018-03-14] MEDS: CARVEDILOL 12.5 MG TABLET PO SCH (21:18)
[2018-03-15] MEDS: HEPARIN SOD (PORCINE) 5,000 UNIT/ML 1 ML SYRINGE SUBCUT SCH (06:41)
[2018-03-15] MEDS: LEVALBUTEROL HCL NEB 1.25 MG/3 ML AMPUL NEB SCH (08:03)
[2018-03-15] MEDS: IPRATROPIUM BROMIDE 0.02% NEB 0.5 MG/2.5 ML AMPUL NEB SCH (08:03)
[2018-03-15] MEDS: CARVEDILOL 12.5 MG TABLET PO SCH (09:31)
[2018-03-15 09:32] LABS: CREATINE KINASE MB 0.65 ng/mL (<4.55); TROPONIN I 0.031 ng/mL
[2018-03-15] MEDS: LOSARTAN POTASSIUM 50 MG TABLET PO SCH (09:32)
[2018-03-15] MEDS: SPIRONOLACTONE 25 MG TABLET PO SCH (09:32)
[2018-03-15] MEDS ORDERED: PANTOPRAZOLE SODIUM 40 MG VIAL IV SCH (10:30)
--- NOTE | 2018-03-15 12:19 | PDOC DISCHARGE SUMMARY ---
General - Admit/Disc Date/PCP Admission Date/Primary Care Provider: 03/12/18 01:01 Discharge Date: 03/15/18 - Discharge Diagnosis (1) Hypertensive emergency Is this a current diagnosis for this admission?: Yes Summary: Patient was acutely hypertensive in the emergency room and was treated with intravenous nitroglycerin. Treatment was continued overnight with the nitroglycerin dose being titrated down and by the morning her blood pressure was well enough controlled that the nitroglycerin had been discontinued. The patient's hypertensive emergency has resolved. (2) Flash pulmonary edema Is this a current diagnosis for this admission?: Yes Summary: Patient was noted to have acute pulmonary edema in the emergency room consistent with flash pulmonary edema due to her hypertensive emergency. As a hypertensive emergency was treated the pulmonary edema rapidly resolved and the associated acute respiratory failure with hypoxia also resolved. (3) Acute respiratory failure with hypoxia Is this a current diagnosis for this admission?: Yes Summary: Upon her presentation to the emergency room the patient had acute pulmonary edema with acute respiratory failure and hypoxia. This was treated with a nitroglycerin drip and supplemental oxygen. BiPAP was also employed to assist the patient with her acute respiratory failure. Patient responded well to treatment and by the next morning was no longer requiring further intervention and respiratory failure with hypoxia had resolved. (4) Elevated troponin Is this a current diagnosis for this admission?: Yes Summary: Patient's troponins were mildly elevated but not significant for cardiac ischemia or injury. The most likely reflect the myocardial strain of her acute hypertensive emergency. The troponin levels have remained stable. - Additional Information Resuscitation Status: Full Code Discharge Diet: Cardiac Discharge Activity: Activity As Tolerated, Balance Activity w/Rest, Walk Frequently, Weigh Daily Prescriptions: Carvedilol [Coreg 12.5 mg Tablet] 12.5 mg PO Q12 30 Days #60 tablet Losartan Potassium [Cozaar 50 mg Tablet] 100 mg PO DAILY 30 Days #30 tablet Spironolactone [Aldactone 25 mg Tablet] 12.5 mg PO DAILY 30 Days #15 tablet Home Medications: Multivitamin [Multivitamins] 1 each PO DAILY 03/12/18 Carvedilol [Coreg 12.5 mg Tablet] 12.5 mg PO Q12 30 Days #60 tablet 03/15/18 Losartan Potassium [Cozaar 50 mg Tablet] 100 mg PO DAILY 30 Days #30 tablet Spironolactone [Aldactone 25 mg Tablet] 12.5 mg PO DAILY 30 Days #15 tablet History of Present Illness Patient complains of: Acute severe dyspnea History of Present Illness: Ms. Javier is a 62 yr old female with acute onset of dyspnea just prior to her arrival in the emergency room. A diagnosis of acute pulmonary edema secondary to hypertensive emergency was made in the emergency room and at that point she was started on nitro drip and was placed on BIPAP. Treatment was continued over the first night of her care and by the next day she was significantly improved with excellent antihypertensive control with no chest pain and and no further dyspnea. Hospital Course Hospital Course: 03/14/2018: Suri states she is feeling much better today and is delighted to know that we are converting her to oral medications and as long as her blood pressure remains well controlled she will be discharged tomorrow. She has been tolerating a cardiac diet well without nausea, vomiting, abdominal pain or dyspepsia. Her dyspnea remains resolved and she continues to be free of chest pain. Her blood pressures today have been well controlled in the sub-150/90 range. 03/15/18: Suri states she is doing well this morning however earlier she had a strange squeezing or gripping sensation that lasted for just a few seconds on the right side of her chest. An EKG was obtained at that time and showed no change from prior tracings. Due to the fact that she had chest pain her stress test was canceled and therefore she will be discharged home today and her stress test can be performed on an outpatient basis. Her blood pressure continues to be well controlled and she has otherwise been symptom free. Because of her excellent response to therapy she is discharged home in improved and stable condition for a post-hospital follow-up with her primary care provider in 1-2 weeks and to follow-up with her catering and events manager Dr. Nava in 1 week or sooner as per his arrangements. Physical Exam Vital Signs: Temp Pulse Resp BP Pulse Ox 99.9 F 82 14 136/85 H 97 03/15/18 07:40 03/15/18 08:03 03/15/18 08:03 03/15/18 07:40 03/15/18 08:03 Intake & Output 03/13/18 03/14/18 03/15/18 23:59 23:59 23:59 Intake Total 502 591 Output Total 1150 Balance -648 591 Weight 74.9 kg 76.7 kg 79.9 kg General appearance: PRESENT: no acute distress, cooperative Head exam: PRESENT: atraumatic, normocephalic Eye exam: PRESENT: conjunctiva pink, EOMI Ear exam: PRESENT: normal external ear exam Mouth exam: PRESENT: neck supple Neck exam: ABSENT: tracheal deviation Respiratory exam: PRESENT: clear to auscultation joe, symmetrical, unlabored Cardiovascular exam: PRESENT: RRR. ABSENT: clicks, gallop, rubs Vascular exam: PRESENT: normal capillary refill. ABSENT: pallor GI/Abdominal exam: PRESENT: normal bowel sounds, soft Rectal exam: PRESENT: deferred Extremities exam: ABSENT: joint swelling, pedal edema Musculoskeletal exam: PRESENT: ambulatory, full ROM, normal inspection Neurological exam: PRESENT: alert, oriented to person, oriented to place, oriented to time, oriented to situation, CN II-XII grossly intact Psychiatric exam: PRESENT: appropriate affect, normal mood Skin exam: ABSENT: jaundice, rash, urticaria Results Laboratory Results: 03/13/18 04:01 03/13/18 04:01 03/12/18 03/12/18 03/12/18 05:58 05:58 12:00 Creatine Kinase 124 130 CK-MB (CK-2) 1.31 Troponin I 0.049 03/12/18 03/15/18 03/15/18 12:00 08:42 08:42 Creatine Kinase 263 H CK-MB (CK-2) 1.15 0.65 Troponin I 0.049 0.031 Impressions: Chest X-Ray 03/13/18 10:37 IMPRESSION: 1. Interval resolution of interstitial edema and pulmonary vascular congestion since the prior study dated 03/11/2018. 2. Stable cardiomegaly. Qualifiers - * PATIENT BEING DISCHARGED WITH ANY OF THE FOLLOWING DIAGNOSIS: Heart Failure HF Pt being discharged on ACEI for LVEF less than 40%?: No Reason(s) for not prescribing ACEI:: Not indicated - Patient is being discharged on losartan HF Pt being discharged on ARBS for LVEF less than 40%?: Yes Reason(s) for not prescribing ARBS:: Not indicated - Patient is being discharged on a ARB HF Pt with Afib discharged with Warfarin?: No Reason(s) for not prescribing Warfarin:: Not indicated - Patient does not have A. fib HF Pt discharged on evidence-based Beta Margret:: Yes Plan Discharge Plan: Discharged home in improved and stable condition Time Spent: Greater than 30 Minutes
[2018-03-15 12:33] VITALS: BP 133/88
--- NOTE | 2018-03-15 17:59 | PDOC PROGRESS REPORT ---
Subjective Progress Note for:: 03/15/18 Subjective:: Blood pressure is well controlled. Patient was supposed to come down for nuclear stress test but apparently when the nuclear tech went to inject Patient , she was noted to have chest discomfort. For some reason, nuclear stress test was not performed. I went up to evaluate this patient later on and it seemed that the chest pain was transient lasting less than a minute. The hospitalist planning to discharge the patient. Feel that the stress test can be performed as an outpatient. She will be scheduled a follow-up appointment. Patient seems to be doing better with gradual improvement. Patient denying any PND, orthopnea. Patient denied any sustained palpitations, dizziness, syncope, near syncope. Patient denying any fever chills. Patient denying any other significant discomfort. Patient is maintaining sinus rhythm. Review of systems: Rest review of systems negative. Medications: Medications have been reviewed. Reason For Visit: HTN EMERG, PULMONARY EDEMA Physical Exam Vital Signs: Temp Pulse Resp BP Pulse Ox 99.9 F 82 14 133/88 H 97 03/15/18 12:30 03/15/18 12:30 03/15/18 12:30 03/15/18 12:30 03/15/18 12:30 Intake & Output 03/14/18 03/15/18 03/16/18 06:59 06:59 06:59 Intake Total 500 591 Output Total 750 Balance -250 591 Weight 76.7 kg 79.9 kg Exam: GENERAL: well-nourished and in no acute distress. Alert and oriented x3 HEAD: Atraumatic, normocephalic. EYES: L[place], sclera anicteric, conjunctiva are normal. ENT: Moist mucous membranes. No oral ulcerations or bleeding gums noted. No obvious ear, nose or throat abnormalities noted. NECK: supple without lymphadenopathy. Trachea is central. No cervical or axillary lymphadenopathy noted. Carotids are 2+, JVD WNL LUNGS: Breath sounds clear bilaterally. No wheezes rales or rhonchi noted. No significant dullness noted on percussion. CHEST: Palpation of the chest wall shows no significant chest wall tenderness. HEART: [place] [employer], No PSH, 1/6 ABDIAZIZ aortic area, 1/6 hickey systolic murmur mitral area, no rubs, no gallops. ABDOMEN: Soft, no significant tenderness appreciated, normoactive bowel sounds. No guarding, no rebound. No rigidity noted . No masses appreciated. EXTREMITIES: Pedal pulses are 1-2+, no calf tenderness noted. No clubbing or cyanosis. negative pedal edema noted NEUROLOGICAL: Focused neurological exam showed no significant neurologic deficit. Normal speech, no focal weakness appreciated. PSYCH: Normal mood, normal affect. Judgment and insight within normal limits. SKIN: No significant ecchymosis, skin is noted to be warm. MUSCULOSKELETAL EXAM: No significant acute joint swelling noted. Results Laboratory Results: 03/13/18 04:01 03/13/18 04:01 03/12/18 03/12/18 03/12/18 05:58 05:58 12:00 Creatine Kinase 124 130 CK-MB (CK-2) 1.31 Troponin I 0.049 03/12/18 03/15/18 03/15/18 12:00 08:42 08:42 Creatine Kinase 263 H CK-MB (CK-2) 1.15 0.65 Troponin I 0.049 0.031 EKG Comments: Telemetry shows sinus rhythm without any sustained tachycardia or bradycardia. Impressions: Chest X-Ray 03/13/18 10:37 IMPRESSION: 1. Interval resolution of interstitial edema and pulmonary vascular congestion since the prior study dated 03/11/2018. 2. Stable cardiomegaly. Assessment & Plan - Diagnosis (1) Hypertensive emergency Is this a current diagnosis for this admission?: Yes (2) CHF (congestive heart failure) Qualifiers: Heart failure type: unspecified Heart failure chronicity: acute Qualified Code(s): I50.9 - Heart failure, unspecified Is this a current diagnosis for this admission?: Yes (3) Flash pulmonary edema Is this a current diagnosis for this admission?: Yes (4) Respiratory distress Is this a current diagnosis for this admission?: Yes (5) Chest pain Qualifiers: Chest pain type: unspecified Qualified Code(s): R07.9 - Chest pain, unspecified Is this a current diagnosis for this admission?: Yes (6) Elevated troponin Is this a current diagnosis for this admission?: Yes - Notes Notes: Hypertensive emergency: Continue with current management plans. Continue with current dose of carvedilol. Continue other antihypertensives.. CHF: Recommend diuretic therapy. 2D echo shows normal LVEF and diastolic dysfunction. 2D echo results reviewed with the patient. Questions were answered. Pulmonary edema: Possibly related to severe hypertension. Need to rule out underlying systolic and or diastolic dysfunction. Agree with diuretic therapy. Respiratory distress: Patient denies any history of COPD or asthma. Therefore this is most likely related to acute pulmonary edema brought on by severe hypertension. Chest pain this morning: This was evaluated with a twelve-lead EKG which was noted to be negative for any acute ST-T wave changes. Patient ready for discharge. Stress test to be performed as an outpatient. Troponin I elevation: Most likely related to severe hypertension and elevated LVEDP. Further evaluation with stress test will be performed as an outpatient. Mild renal dysfunction: Possibly related to hypertensive kidney disease. Further evaluation can be performed as an outpatient especially renal ultrasound. - Time Time with patient: Greater than 35 minutes - CODE STATUS was discussed, patient remains full code. Surrogate decision-maker unchanged. Multiple medical problems were addressed. More than 50% of the time spent coordinating care, discussing management plans with involved caregivers. Management plans discussed with involved personnels. Medical decision making was of moderate to high complexity, patient's has multiple comorbidities. Medications reviewed and adjusted accordingly: Yes
--- NOTE | 2018-03-16 09:02 | EKG REPORT ---
SEVERITY:- ABNORMAL ECG - SINUS RHYTHM BIATRIAL ABNORMALITIES LVH WITH SECONDARY REPOLARIZATION ABNORMALITY : Confirmed by: Jordan Nava 16-Mar-2018 09:01:38
== END 2018-03-15 13:00 | disposition home or self-care (01) | DRG 304 ==
LOC: ER 22:14 → EH 03-12 01:01 → ICU 03-12 02:15 → 3W 03-13 19:59
PROVIDERS: ADMIT Internal Medicine; ATTEND Internal Medicine
DX: I16.1 Hypertensive emergency (principal); J96.01 Acute respiratory failure with hypoxia; I50.1 Left ventricular failure, unspecified; I11.0 Hypertensive heart disease with heart failure; R07.9 Chest pain, unspecified; Z79.899 Other long term (current) drug therapy; Z88.6 Allergy status to analgesic agent
CPT/HCPCS: 36415; 71045; 80048; 80053; 80307; 82550; 82553; 82803; 83735; 83880; 84443; 84484; 85025; 93005; 93010; 93306; 94640; 94660; 96365; 96366; 96375; 99285; J0360; J1644; J1940; J2405; J3490; J7620; S0164

== ENCOUNTER 2018-10-25 10:49 | Emergency (ER) | payer BC, OTHER ==
--- NOTE | 2018-10-25 11:13 | ER Document Report ---
ED Medical Screen (RME) - General Chief Complaint: Chest Pain Stated Complaint: CHEST PAIN Time Seen by Provider: 10/25/18 11:06 Mode of Arrival: Ambulatory Information source: Patient Notes: Patient presents complaining of chest pain and difficulty breathing that started at 9 AM today. Patient states she was having some dizziness as well. Patient denies any nausea or vomiting. Patient states that she went saw her doctor today who gave her a pill she is uncertain what the pill is but she says she feels somewhat better. Patient complains of continued pain with deep inspiration. Patient does have a history of hypertension and CHF. I have greeted and performed a rapid initial assessment of this patient. A comprehensive ED assessment and evaluation of the patient, analysis of test results and completion of the medical decision making process will be conducted by additional ED providers. TRAVEL OUTSIDE OF THE [place] IN LAST 30 DAYS: No - Related Data Allergies/Adverse Reactions: aspirin [Aspirin] Adverse Reaction (Verified 10/25/18 11:10) Past Medical History - Past Medical History Cardiac Medical History: Reports: Hx Hypertension Renal/ Medical History: Denies: Hx Peritoneal Dialysis Past Surgical History: Reports: Hx Tubal Ligation - Immunizations Immunizations up to date: Yes Hx Diphtheria, Pertussis, Tetanus Vaccination: Yes Physical Exam - Respiratory Respiratory status: No respiratory distress Chest status: Pain with deep breathing Breath sounds: Normal Chest palpation: Normal
[2018-10-25 11:22] VITALS: BP 145/91
--- NOTE | 2018-10-25 12:07 | RADIOLOGY REPORT (SQ) ---
EXAM DESCRIPTION: CHEST 2 VIEWS COMPLETED DATE/TIME: 10/25/2018 11:57 am REASON FOR STUDY: Chest Pain COMPARISON: 03/13/2018 EXAM PARAMETERS: NUMBER OF VIEWS: two views TECHNIQUE: Digital Frontal and Lateral radiographic views of the chest acquired. RADIATION DOSE: NA LIMITATIONS: none FINDINGS: LUNGS AND PLEURA: No opacities, masses or pneumothorax. No pleural effusion. MEDIASTINUM AND HILAR STRUCTURES: No masses or contour abnormalities. HEART AND VASCULAR STRUCTURES: Heart size is borderline. No pulmonary edema. BONES: No acute findings. HARDWARE: None in the chest. OTHER: No other significant finding. IMPRESSION: Borderline heart size with no pulmonary edema. TECHNICAL DOCUMENTATION: JOB ID: [id number] [employer]- All Rights Reserved Reading location - IP/workstation name: [email or web address]
[2018-10-25 12:32] LABS: ABSOLUTE EOSINOPHILS # (AUTO) 0.2 10^3/uL (0.0-0.6); ABSOLUTE LYMPHOCYTES (AUTO) 1.3 10^3/uL (0.5-4.7); ABSOLUTE MONOCYTES (AUTO) 0.5 10^3/uL (0.1-1.4); ABSOLUTE NEUT (AUTO) 4.2 10^3/uL (1.7-8.2); BASOPHILS % (AUTO) 0.7 % (0-2); EOSINOPHILS % (AUTO) 2.9 % (0-6); HEMATOCRIT 39.1 % (36.0-47.0); HEMOGLOBIN 13.1 g/dL (12.0-15.5); LYMPHOCYTES % (AUTO) 21.1 % (13-45); MEAN CORPUSCULAR HEMOGLOBIN 32.4 pg (27.0-33.4); MEAN CORPUSCULAR HGB CONC 33.6 g/dL (32.0-36.0); MEAN CORPUSCULAR VOLUME 96 fl (80-97); MONOCYTES % (AUTO) 8.2 % (3-13); PLATELET COUNT 223 10^3/uL (150-450); RED BLOOD COUNT 4.06 10^6/uL (3.72-5.28); RED CELL DISTRIBUTION WIDTH 14.4 % (11.5-14.0); SEGMENTED NEUTROPHILS % (AUTO) 67.1 % (42-78); TOTAL CELLS COUNTED % (AUTO) 100 %; WHITE BLOOD COUNT 6.2 10^3/uL (4.0-10.5)
[2018-10-25 12:37] LABS: INTERNATIONAL RATION (INR) 1.22; PROTHROMBIN TIME 15.4 SEC (11.4-15.4)
[2018-10-25 14:27] LABS: ALKALINE PHOSPHATASE 109 U/L (38-126); ANION GAP 7 (5-19); ASPARTATE AMINO TRANSFERASE 24 U/L (14-36); BILIRUBIN,DIRECT 0.3 mg/dL (0.0-0.4); BILIRUBIN,TOTAL 0.6 mg/dL (0.2-1.3); BLOOD UREA NITROGEN 17 mg/dL (7-20); CALCIUM 9.3 mg/dL (8.4-10.2); CARBON DIOXIDE 25 mmol/L (22-30); CHLORIDE 107 mmol/L (98-107); CREATINE KINASE 84 U/L (30-135); GLUCOSE 94 mg/dL (75-110); POTASSIUM 4.1 mmol/L (3.6-5.0); SODIUM 139.4 mmol/L (137-145); TOTAL PROTEIN 7.3 g/dL (6.3-8.2)
[2018-10-25 14:28] LABS: ALANINE AMINOTRANSFERASE 26 U/L (9-52)
[2018-10-25 14:38] LABS: CREATINE KINASE MB 0.81 ng/mL (<4.55); TROPONIN I < 0.012 ng/mL
--- NOTE | 2018-10-25 15:03 | ER Document Report ---
ED Cardiac - General Chief Complaint: Chest Pain Stated Complaint: CHEST PAIN Time Seen by Provider: 10/25/18 11:06 Primary Care Provider: MARC MCCULLOUGH MD [Primary Care Provider] - 10/27/18 Mode of Arrival: Ambulatory Notes: Patient complains of chest pain and difficulty breathing that started this morning. Also having dizziness. Saw Dr. Grace in office this am who sent potient here for eval. He gave her some med there in office. Pain worsened with deep inspiration. Patient has a history of hypertension and CHF. TRAVEL OUTSIDE OF THE [place] IN LAST 30 DAYS: No - Related Data Allergies/Adverse Reactions: aspirin [Aspirin] Adverse Reaction (Verified 10/25/18 11:10) Past Medical History - General Information source: Patient - Social History Smoking Status: Current Every Day Smoker Chew tobacco use (# tins/day): No Frequency of alcohol use: Occasional Family History: Reviewed & Not Pertinent, Hypertension Patient has suicidal ideation: No Patient has homicidal ideation: No - Past Medical History Cardiac Medical History: Reports: Hx Congestive Heart Failure, Hx Hypertension Past Surgical History: Reports: Hx Tubal Ligation - Immunizations Immunizations up to date: Yes Hx Diphtheria, Pertussis, Tetanus Vaccination: Yes Review of Systems - Review of Systems Constitutional: No symptoms reported. denies: Fever EENT: No symptoms reported Cardiovascular: See HPI Respiratory: No symptoms reported. denies: Short of breath Gastrointestinal: No symptoms reported. denies: Vomiting Genitourinary: No symptoms reported Musculoskeletal: No symptoms reported. denies: Back pain, Leg swelling, Ankle swelling Skin: No symptoms reported Neurological/Psychological: denies: Depression -: Yes All other systems reviewed and negative Physical Exam - Vital signs Vitals: Temp Pulse Resp BP Pulse Ox 98.2 F 60 18 145/91 H 98 10/25/18 11:21 10/25/18 11:21 10/25/18 11:21 10/25/18 11:21 10/25/18 11:21 Interpretation: Normal - General General appearance: Appears well, Alert, Anxious In distress: None - Respiratory Respiratory status: No respiratory distress Chest status: Tender - mild, Pain with deep breathing Breath sounds: Normal. No: Productive cough Chest palpation: Tender - minimal - Cardiovascular Rhythm: Regular Heart sounds: Normal auscultation - Abdominal Inspection: Normal Distension: No distension Tenderness: Nontender - Back Back: Normal, Nontender - Extremities General upper extremity: Normal ROM General lower extremity: Normal inspection, Normal ROM - Neurological Neuro grossly intact: Yes Cognition: Normal Orientation: AAOx4 - Psychological Associated symptoms: Anxious - Skin Skin Temperature: Warm Skin Moisture: Dry Course - Re-evaluation Re-evalutation: 10/27/18 22:10 Workkup all negative, but unexplained chest pain. D/W Dr grace and we recommended admit observation. Patient adamantly declines admission, saying she has things to do. Explained that she could have a heart attack and have s serious complication and even d eath. Patient still insists she cannot stay and must leave. even ifi is iAMA. - Vital Signs Vital signs: Temp Pulse Resp BP Pulse Ox 98.2 F 60 17 145/91 H 100 10/25/18 11:21 10/25/18 11:21 10/25/18 15:00 10/25/18 11:21 10/25/18 15:00 - Laboratory Result Diagrams: 10/25/18 12:07 10/25/18 13:45 Laboratory results interpreted by me: 10/25/18 12:07 RDW 14.4 H - Diagnostic Test Radiology results interpreted by me: CXR NORMAL - EKG Interpretation by Me EKG shows normal: Sinus rhythm Rate: Normal Rhythm: NSR When compared to previous EKG there are: No significant change Additional EKG results interpreted by me: 10/27/18 22:[address] changes Discharge - Discharge Clinical Impression: Chest pain, Leaving AGAINST MEDICAL ADVICE Disposition: AGAINST MEDICAL ADVICE Additional Instructions: CHEST PAIN OF UNCLEAR CAUSE: The exact cause of your chest pain isn't clear. Fortunately, there is no evidence of a dangerous medical condition. Further testing may be required to find the source of the pain. Most often, we find that this pain is coming from the chest wall -- the muscles or rib joints in the chest. But chest pain can come from the lung and lung lining, the esophagus, the heart valves or heart lining, and even the st omach or gallbladder. Rest. Eat lightly until the pain is gone. We may prescribe medicine for pain and inflammation. You should call the physician immediately if the pain radiates to the s houlder, jaw or arms; if you start to run a fever or develop a cough; or if you develop shortness of breath, or other new or alarming symptoms. NORMAL EXAM AND WORKUP: At this time, your examination and workup show no significant abnormality. No significant abnormal physical findings were noted. All laboratory, EKG, and imaging (x-ray, CT scans, ultrasound) studies that were ordered show no significant abnormality. Although your examination and all studies that were ordered showed no significant abnormal finding, there are no examinations and no studies that are 100% accurate. There is always the possibility that some abnormality could exist and not be detected with physical examination or within the limits and capabilities of laboratory and other studies. You should return or follow up as you were instructed on your visit today for further evaluation if your symptoms do not resolve. FLUX DISEASE (GERD): Gastro-Esophageal Reflux Disease (GERD) is caused by stomach acid refluxing back up into the esophagus. The valve at the end of the esophagus may be weak. This is common in persons with a hiatal hernia. GERD symptoms can include indigestion, chest pain, heartburn, or food "sticking." Certain foods, alcohol, and aspirin can make GERD worse. Treatment depends on the severity. Usually, antacids or acid-suppressing medicines are used. When the esophagus is acutely inflamed, the physician will often prescribe membrane-protective drugs such as Carafate. Some patients benefit from medication such as Reglan that tightens the valve at the top of the stomach. Avoid those foods that bring on your symptoms. For many people, these foods are coffee, chocolate, onions, garlic, and carbonated drinks. Don't use alcohol, aspirin, caffeine, or tobacco. Don't eat late at night -- within 4 hours of bedtime. Don't over-eat. If necessary, elevate the head of your bed about 4 inches so that stomach acid will not roll up into your esophagus. Call the doctor if you develop severe chest pain, inability to swallow fluids, fever, or worsening symptoms. ASPIRIN: Aspirin has been shown to have a beneficial effect on blood circulation by reducing the clotting effect of platelets in the blood. These beneficial effects can be achieved by taking just a single baby (81 mg) aspirin a day. It is recommended that any person over the age of forty take a single baby aspirin every day for heart and brain circulation, unless you are allergic to aspirin or have some significant bleeding disorder. It is strongly recommended that people who have proven cardiac or blood circulation disturbances should take a baby aspirin every day. ANTACID THERAPY: You have been instructed to start antacid therapy. Antacids directly neutralize stomach acid. This is useful for acid irritation of the esophagus, gastritis, and ulcers. You should take two tablespoons of antacid one hour after each meal and three hours after each meal. If you are not eating, take the antacid every two hours. If you are using a concentrate (such as Maalox TC), use only one tablespoon. Many antacids affect the bowels. The most common problem is diarrhea. In this case, a pure aluminum hydroxide antacid (such as AlternaGel) can be substituted for some or all doses. If the problem is constipation, add a teaspoon of Milk of Magnesia to each dose. Call the doctor if you experience continued diarrhea or constipation, or if you develop lightheadedness, bloody stool or vomitus, severe abdominal pain, or black stool. PRILOSEC (ACID PUMP INHIBITOR): Prilosec (omeprazole) is an acid-pump inhibitor. It blocks the secretion of hydrogen ions in the acid-producing cells of the stomach. Prilosec keeps your stomach from making acid. Take all medication as prescribed, even after the pain is gone. Regular antacids may be added as needed if you have symptoms while taking this medicine. There are usually no side effects from this medication. Contact your doctor if there is fever, rash, yellow skin color, increasing abdominal pain, we akness, or unusual bruising. Return at once if you develop lightheadedness, black or bloody stool, or bloody vomitus. FOLLOW-UP CARE: If you have been referred to a physician for follow-up care, call the physicians office for an appointment as you were instructed or within the next two days. If you experience worsening or a significant change in your symptoms, notify the physician immediately or return to the Emergency Department at any time for re-evaluation. Dr. Grace said to call his office to make a follow-up appointment to see him on Tuesday. Dr. Grace said to call his office to make an appointment for him to follow you up on Tuesday. You are leaving AGAINST MEDICAL ADVICE. If you have a change of mind or you have worsening symptoms and wish to be reevaluated, return to the emergen cy department at any time. Referrals: MARC MCCULLOUGH MD [Primary Care Provider] - 10/27/18
--- NOTE | 2018-10-26 23:08 | EKG REPORT ---
SEVERITY:- BORDERLINE ECG - SINUS RHYTHM LVH BY VOLTAGE : Confirmed by: Jordan Nava 26-Oct-2018 23:07:56
== END 2018-10-25 15:14 | disposition left against medical advice (07) ==
LOC: ER 10:49
DX: R07.9 Chest pain, unspecified (principal); R42 Dizziness and giddiness; I10 Essential (primary) hypertension; F17.200 Nicotine dependence, unspecified, uncomplicated; Z53.20 Procedure and treatment not carried out because of patient's decision for unspecified reasons
CPT/HCPCS: 36415; 71046; 80053; 82550; 82553; 84484; 85025; 85610; 93005; 93010; 99284

== ENCOUNTER 2019-12-13 13:28 | Inpatient (IN) | payer OTHER ==
--- NOTE | 2019-12-13 13:37 | ER Document Report ---
ED Medical Screen (RME) - General Chief Complaint: Slurred Speech Stated Complaint: SLURRED SPEECH/FACIAL DROOPING Time Seen by Provider: 12/13/19 13:33 Primary Care Provider: MARC MCCULLOUGH MD [Primary Care Provider] - Follow up as needed Mode of Arrival: Wheelchair Information source: Relative Notes: 64-year-old female presented to ED for left-sided weakness. Daughter states this facial droop I do not see any facial droop. She does have weakness to the left arm. She states she fell this morning landing on her right arm. Daughter states she has had a stroke in the past and was in ICU. She is able to answer simple questions but is not able to carry a conversation on but is not able to answer simple questions. She states she fell this morning landing on the right side. Daughter is with her. States this started this morning. I have greeted and performed a rapid initial assessment of this patient. A comprehensive ED assessment and evaluation of the patient, analysis of test results and completion of medical decision making process will be conducted by an additional ED providers. TRAVEL OUTSIDE OF THE [place] IN LAST 30 DAYS: No - Related Data Allergies/Adverse Reactions: aspirin [Aspirin] Adverse Reaction (Verified 10/25/18 11:10) Past Medical History - Past Medical History Cardiac Medical History: Reports: Hx Congestive Heart Failure, Hx Hypertension Renal/ Medical History: Denies: Hx Peritoneal Dialysis Past Surgical History: Reports: Hx Tubal Ligation - Immunizations Immunizations up to date: Yes Hx Diphtheria, Pertussis, Tetanus Vaccination: Yes Doctor's Discharge - Discharge Referrals: MARC MCCULLOUGH MD [Primary Care Provider] - Follow up as needed
--- NOTE | 2019-12-13 13:59 | ER Document Report ---
ED General - General Chief Complaint: Slurred Speech Stated Complaint: SLURRED SPEECH/FACIAL DROOPING Time Seen by Provider: 12/13/19 13:33 Primary Care Provider: MARC MCCULLOUGH MD [Primary Care Provider] - Follow up as needed Mode of Arrival: Wheelchair Notes: HPI: 64-year-old female that presents today with daughter bedside stating around 9 AM she "tripped" over a rug. She was called in as a code stroke secondary to left arm and left leg weakness. The daughter at bedside states that the patient was having some slurred speech. Patient states she did not hit her head. She states she is not on blood thinning medications. She states she has no headache, neck pain, chest pain, abdominal pain, and denies any weakness at this time. Past medical history as recorded including a stroke. She is followed by Dr. Jaciel HERNANDEZ: See HPI All other review of systems reviewed and otherwise negative Reviewed vital signs and nursing note as charted by RN. PHYSICAL EXAM: CONSTITUTIONAL: Alert and oriented and responds appropriately to questions however in a slightly delayed manner. She is oriented to year, month, and date. Well-appearing; well-nourished HEAD: Normocephalic; atraumatic EYES: PERRL; Conjunctivae clear, sclerae non-icteric ENT: Normal nose; no rhinorrhea; moist mucous membranes; pharynx without lesions noted NECK: Supple without meningismus; non-tender to palpation along the midline spine; no carotid bruit; no cervical lymphadenopathy, no masses CARD: Regular rate and rhythm; no murmurs; symmetric distal pulses RESP: Normal chest excursion without splinting or tachypnea; breath sounds clear and equal bilaterally ABD/GI: Normal bowel sounds; non-distended; soft, non-tender BACK: The back appears normal and is non-tender to palpation EXT: Normal ROM in all joints; non-tender to palpation; no edema SKIN: No acute lesions noted NEURO: CN 2-12 intact; 5/5 bilateral upper and lower extremity strength with sensation intact to light touch with no appreciable drift. VAN negative. NIH score currently is 0 PSYCH: The patient's mood and manner are appropriate. Grooming and personal hygiene are appropriate. TRAVEL OUTSIDE OF THE [place] IN LAST 30 DAYS: No - Related Data Allergies/Adverse Reactions: aspirin [Aspirin] Adverse Reaction (Verified 10/25/18 11:10) Past Medical History - General Information source: Relative - Social History Smoking Status: Unknown if Ever Smoked Family History: Reviewed & Not Pertinent, Hypertension - Past Medical History Cardiac Medical History: Reports: Hx Congestive Heart Failure, Hx Hypertension Renal/ Medical History: Denies: Hx Peritoneal Dialysis Past Surgical History: Reports: Hx Tubal Ligation - Immunizations Immunizations up to date: Yes Hx Diphtheria, Pertussis, Tetanus Vaccination: Yes Physical Exam - Vital signs Vitals: Temp 99.1 F 12/13/19 13:42 Course - Re-evaluation Re-evalutation: Given the above history and physical with the onset at 9 AM, with an NIH score currently of 0 with no focal logical deficits, with a Van score negative, I do not believe that the patient is a TPA or extraction candidate at this time. We will proceed with a CT scan of the head, cardiac labs, and reassess. EKG shows heart of 91, normal sinus rhythm, left axis deviation, LVH, no obvious ST elevation or depression. Inverted T waves most likely repolarization in leads I, II, and aVL. 12/13/19 14:52 Imaging and labs as recorded. No change in exam. CT scan of the head is recorded. I will provide aspirin. Patient did take a dose of her blood pressure medication this morning. She has supposedly been noncompliant for many months according to daughter at bedside. Patient will be admitted for further evaluation and treatment. - Vital Signs Vital signs: Temp Pulse Resp BP Pulse Ox 99.1 F 95 20 185/122 H 99 12/13/19 13:42 12/13/19 13:45 12/13/19 13:45 12/13/19 13:45 12/13/19 13:45 - Laboratory Result Diagrams: 12/13/19 13:53 12/13/19 13:53 Laboratory results interpreted by me: 12/13/19 12/13/19 12/13/19 13:50 13:53 13:53 RDW 15.4 H Chloride 109 H BUN 22 H Est GFR (MDRD) Non-Af 55 L Glucose 160 H POC Glucose 155 H Total Protein 8.4 H Discharge - Discharge Clinical Impression: Left-sided weakness, Slurred speech, Elevated blood pressure reading Condition: Fair Disposition: ADMITTED INPATIENT Admitting Provider: Alpesh Unit Admitted: IMCU Referrals: MARC MCCULLOUGH MD [Primary Care Provider] - Follow up as needed
--- NOTE | 2019-12-13 14:01 | RADIOLOGY REPORT (SQ) ---
EXAM DESCRIPTION: CT HEAD WITHOUT IMAGES COMPLETED DATE/TIME: 12/13/2019 1:43 pm REASON FOR STUDY: left sided weakness since am fall COMPARISON: None. TECHNIQUE: Axial images acquired through the brain without intravenous contrast. Images reviewed wi th bone, brain and subdural windows. Additional sagittal and coronal reconstructions were generated. Images stored on PACS. All CT scanners at this facility use dose modulation, iterative reconstruction, and/or weight based d osing when appropriate to reduce radiation dose to as low as reasonably achievable (ALARA). [facility]: Dose Right [facility]: CareDose [facility]: Dose Right [facility]: Teradose 4D [facility]: GELI RADIATION DOSE: CT Rad equipment meets quality standard of care and radiation dose reduction techniq ues were employed. CTDIvol: 53.2 mGy. DLP: 1230 mGy-cm.mGy. LIMITATIONS: None. FINDINGS: VENTRICLES: Prominent. CEREBRUM: No masses. No hemorrhage. No midline shift. Areas of low density in the white matter mos t likely due to chronic micro-vascular ischemic change. No evidence for acute infarction. CEREBELLUM: No masses. No hemorrhage. No alteration of density. No evidence for acute infarction. EXTRAAXIAL SPACES: Age-related involutional change. No fluid collections. No masses. ORBITS AND GLOBE: No intra- or extraconal masses. Normal contour of globe without masses. CALVARIUM: No fracture. PARANASAL SINUSES: No fluid or mucosal thickening. SOFT TISSUES: No mass or hematoma. OTHER: No other significant finding. IMPRESSION: CHRONIC CHANGES OF ATROPHY AND MICROVASCULAR ISCHEMIA. NO ACUTE PROCESS. EVIDENCE OF ACUTE STROKE: NO. COMMENT: Pertinent positive or negative findings of the imaging study reported as a CRITICAL EXAM laura FALK NP at13:54 on 12/13/2019. Category of Critical Exam: Stroke alert TECHNICAL DOCUMENTATION: JOB ID: [id number] Quality ID # [id number]: Final reports with documentation of one or more dose reduction techniques (e.g., Au tomated exposure control, adjustment of the mA and/or kV according to patient size, use of iterative reconstruction technique) 2010 [employer]- All Rights Reserved Reading location - IP/workstation name: [email or web address]
[2019-12-13 14:06] LABS: ABSOLUTE BASOPHILS # (AUTO) 0.1 10^3/uL (0.0-0.2); ABSOLUTE EOSINOPHILS # (AUTO) 0.1 10^3/uL (0.0-0.6); ABSOLUTE LYMPHOCYTES (AUTO) 1.2 10^3/uL (0.5-4.7); ABSOLUTE MONOCYTES (AUTO) 0.4 10^3/uL (0.1-1.4); ABSOLUTE NEUT (AUTO) 4.9 10^3/uL (1.7-8.2); BASOPHILS % (AUTO) 0.8 % (0-2); EOSINOPHILS % (AUTO) 1.4 % (0-6); HEMOGLOBIN 14.2 g/dL (12.0-15.5); LYMPHOCYTES % (AUTO) 18.4 % (13-45); MEAN CORPUSCULAR HEMOGLOBIN 31.7 pg (27.0-33.4); MEAN CORPUSCULAR HGB CONC 33.9 g/dL (32.0-36.0); MEAN CORPUSCULAR VOLUME 94 fl (80-97); MONOCYTES % (AUTO) 5.3 % (3-13); PLATELET COUNT 190 10^3/uL (150-450); RED CELL DISTRIBUTION WIDTH 15.4 % (11.5-14.0); SEGMENTED NEUTROPHILS % (AUTO) 74.1 % (42-78); TOTAL CELLS COUNTED % (AUTO) 100 %; WHITE BLOOD COUNT 6.7 10^3/uL (4.0-10.5)
[2019-12-13 14:07] LABS: INTERNATIONAL RATION (INR) 0.97
[2019-12-13 14:08] LABS: PARTIAL THROMBOPLASTIN TIME 27.8 SEC (23.5-35.8)
[2019-12-13 14:12] LABS: PROTHROMBIN TIME 13.1 SEC (11.4-15.4)
[2019-12-13 14:20] LABS: ALBUMIN 4.5 g/dL (3.5-5.0); ALKALINE PHOSPHATASE 110 U/L (38-126); ANION GAP 5 (5-19); ASPARTATE AMINO TRANSFERASE 29 U/L (14-36); BILIRUBIN,TOTAL 0.6 mg/dL (0.2-1.3); BLOOD UREA NITROGEN 22 mg/dL (7-20); CALCIUM 9.5 mg/dL (8.4-10.2); CARBON DIOXIDE 23 mmol/L (22-30); CHLORIDE 109 mmol/L (98-107); CREATINE KINASE 97 U/L (30-135); GLUCOSE 160 mg/dL (75-110); POTASSIUM 4.3 mmol/L (3.6-5.0); TOTAL PROTEIN 8.4 g/dL (6.3-8.2)
--- NOTE | 2019-12-13 14:22 | RADIOLOGY REPORT (SQ) ---
EXAM DESCRIPTION: CHEST SINGLE VIEW IMAGES COMPLETED DATE/TIME: 12/13/2019 1:44 pm REASON FOR STUDY: left sided weakness since am fall COMPARISON: 10/25/2018. EXAM PARAMETERS: NUMBER OF VIEWS: One view. TECHNIQUE: Single frontal radiographic view of the chest acquired. RADIATION DOSE: NA LIMITATIONS: None. FINDINGS: LUNGS AND PLEURA: No opacities, masses or pneumothorax. No pleural effusion. MEDIASTINUM AND HILAR STRUCTURES: No masses. Contour normal. HEART AND VASCULAR STRUCTURES: Heart normal in size. Normal vasculature. BONES: No acute findings. HARDWARE: None in the chest. OTHER: No other significant finding. IMPRESSION: NO ACUTE RADIOGRAPHIC FINDING IN THE CHEST. TECHNICAL DOCUMENTATION: JOB ID: [id number] 2010 [employer]- All Rights Reserved Reading location - IP/workstation name: [email or web address]
[2019-12-13 14:32] LABS: CREATINE KINASE MB 1.02 ng/mL (<4.55)
[2019-12-13 14:34] LABS: TROPONIN I < 0.012 ng/mL
[2019-12-13] MEDS ORDERED: ASPIRIN 325 MG TABLET PO ONE (14:51)
--- NOTE | 2019-12-13 15:24 | EKG REPORT ---
SEVERITY:- ABNORMAL ECG - SINUS RHYTHM PROBABLE LEFT ATRIAL ABNORMALITY LVH WITH SECONDARY REPOLARIZATION ABNORMALITY CONSIDER ANTERIOR INFARCT : Confirmed by: All Kilpatrick MD 13-Dec-2019 15:24:16
[2019-12-13] MEDS ORDERED: DEXTROSE 40% GEL 15 GM TUBE PO PRN ×4 (17:07→22:30)
[2019-12-13] MEDS ORDERED: GLUCAGON,HUMAN RECOMB 1 MG INJ SUBCUT PRN ×2 (17:07→22:30)
[2019-12-13] MEDS ORDERED: DEXTROSE 50%-WATER 25 GM/50 ML DISP.SYRIN IV PRN ×4 (17:07→22:30)
[2019-12-13] MEDS: ASPIRIN 81 MG TABLET, ENT COATED PO SCH (18:16)
[2019-12-13] MEDS: ENOXAPARIN SODIUM INJ 40 MG/0.4 ML DISP.SYRIN SUBCUT SCH (18:17)
[2019-12-13] MEDS: CLOPIDOGREL BISULFATE 75 MG TABLET PO SCH (18:17)
--- NOTE | 2019-12-13 19:54 | PDOC H&P ---
History of Present Illness Admission Date/PCP: 12/13/19 15:24 MARC MCCULLOUGH MD History of Present Illness: MIKKI POWER is a 64 year old female, Patient is extremely noncompliant, she has not followed up in the office for over a year, she stopped taking her medication for the control of blood pressure., She called the office for evaluation of weakness and slurred speech, she was advised to go to emergency room immediately for evaluation. She was evaluated in the emergency room, based on the emergency room record, she stated that about 9 AM in the morning she tripped over a rug partly because she has left leg weakness, the speech was also slurred, the onset of symptoms at the time she presented to the emergency room was outside of the 6-hour window recommended to treat with thrombolytic for CVA., In the emergency room a CAT scan of the head was done, it was negative f or any acute pathology initially it was felt that she may have a TIA, MRI of the brain was done, diffusion imaging is more sensitive in detecting small strokes, it demonstrated multiple foci of restricted diffusion within the right basal ganglia, right periventricular and subcortical white matter in the right frontal and parietal lobe. There is no intracranial hemorrhage, no extra-axial fluid collection or mass. The paranasal sinuses are clear Past Medical History Cardiac Medical History: Reports: Hypertension Psychiatric Medical History: Denies: Depression Past Surgical History Past Surgical History: Reports: Tubal Ligation Social History Smoking Status: Current Every Day Smoker Cigarettes Packs Per Day: 1 Electronic Cigarette use?: No Number of Years Smokin Last Time Smoked: 12/13/2019 Frequency of Alcohol Use: None Hx Recreational Drug Use: No Drugs: None Hx Prescription Drug Abuse: No Family History Family History: Reviewed & Not Pertinent, Hypertension Parental Family History Reviewed: Yes Children Family History Reviewed: Yes Sibling(s) Family History Reviewed.: Yes Medication/Allergy Home Medications: No Home Medications 12/13/19 Allergies/Adverse Reactions: aspirin [Aspirin] Adverse Reaction (Verified 10/25/18 11:10) Review of Systems Constitutional: ABSENT: chills, fever(s), headache(s), weight gain, weight loss Eyes: ABSENT: visual disturbances Ears: ABSENT: hearing changes Cardiovascular: ABSENT: chest pain, dyspnea on exertion, edema, orthropnea, palpitations Respiratory: ABSENT: cough, hemoptysis Gastrointestinal: ABSENT: abdominal pain, constipation, diarrhea, hematemesis, hematochezia, nausea, vomiting Genitourinary: ABSENT: dysuria, hematuria Musculoskeletal: ABSENT: joint swelling Integumentary: ABSENT: rash, wounds Neurological: PRESENT: abnormal speech, weakness Psychiatric: ABSENT: anxiety, depression, homidical ideation, suicidal ideation Endocrine: ABSENT: cold intolerance, heat intolerance, menstrual abnormalities, polydipsia, polyuria Hematologic/Lymphatic: ABSENT: easy bleeding, easy bruising, lymphadenopathy Physical Exam Vital Signs: Temp Pulse Resp BP Pulse Ox 97.9 F 58 L 20 193/94 H 100 12/13/19 17:25 12/13/19 17:25 12/13/19 17:25 12/13/19 17:25 12/13/19 17:25 Intake & Output 12/12/19 12/13/19 12/14/19 06:59 06:59 06:59 Weight 85.3 kg General appearance: PRESENT: no acute distress Head exam: PRESENT: atraumatic, normocephalic Eye exam: PRESENT: PERRLA Ear exam: PRESENT: normal external ear exam Mouth exam: PRESENT: moist, tongue midline Neck exam: PRESENT: full ROM Respiratory exam: PRESENT: clear to auscultation joe Cardiovascular exam: PRESENT: RRR, +S1, +S2 Vascular exam: PRESENT: normal capillary refill GI/Abdominal exam: PRESENT: normal bowel sounds, soft Rectal exam: PRESENT: deferred Neurological exam: PRESENT: alert, motor sensory deficit Psychiatric exam: PRESENT: appropriate affect, normal mood Skin exam: PRESENT: dry, intact, warm Results Laboratory Results: 12/13/19 13:53 12/13/19 13:53 12/13/19 12/13/19 13:53 13:53 WBC 6.7 RBC 4.50 Hgb 14.2 Hct 42.0 MCV 94 MCH 31.7 MCHC 33.9 RDW 15.4 H Plt Count 190 Seg Neutrophils % 74.1 Sodium 137.4 Potassium 4.3 Chloride 109 H Carbon Dioxide 23 Anion Gap 5 BUN 22 H Creatinine 1.02 Est GFR ( Amer) > 60 Glucose 160 H Calcium 9.5 Total Bilirubin 0.6 AST 29 Alkaline Phosphatase 110 Total Protein 8.4 H Albumin 4.5 12/13/19 12/13/19 12/13/19 13:53 13:53 18:15 Creatine Kinase 97 CK-MB (CK-2) 1.02 Troponin I < 0.012 0.017 Impressions: Chest X-Ray 12/13/19 13:34 IMPRESSION: NO ACUTE RADIOGRAPHIC FINDING IN THE CHEST. Head CT 12/13/19 13:34 IMPRESSION: CHRONIC CHANGES OF ATROPHY AND MICROVASCULAR ISCHEMIA. NO ACUTE PROCESS. EVIDENCE OF ACUTE STROKE: NO. Assessment & Plan - Diagnosis (1) Right basal ganglia embolic stroke Is this a current diagnosis for this admission?: Yes Plan: The diffusion imaging suggests embolic right basal ganglia stroke, the blood pressure is elevated, the blood pressure will be permissively elevated unless if systolic is more than 220 or diastolic that is more than 120, She is admitted to be treated for stroke, carotid Doppler ordered, 2D echo ordered, she will be treated with dual antiplatelet, Plavix and aspirin for 21 days, will consult speech therapy, PT, OT (2) Hypertensive urgency Is this a current diagnosis for this admission?: Yes Plan: She has hypertension in the hypertensive urgency range but there is no indication at this moment to treat the blood pressure, the blood pressure will be allowed to be permissively elevated unless if systolic blood pressure is more than 220 or diastolic is more than 120. Patient needs education about lifestyle change, she is an avid smoker, Extremely nonadherent with recommended evidence-based medication for the control of blood pressure - Time Time Spent: Greater than 70 Minutes Smoking Cessation Education: over 10 minutes Medications reviewed and adjusted accordingly: Yes Anticipated Discharge Disposition: Home, Self Care Anticipated Discharge Timeframe: within 72 hours - Inpatient Certification Based on my medical assessment, after consideration of the patient's comorbidities, presenting symptoms, or acuity I expect that the services needed warrant INPATIENT care.: Yes I certify that my determination is in accordance with my understanding of Medicare's requirements for reasonable and necessary INPATIENT services [42 CFR 412.3e].: Yes
--- NOTE | 2019-12-13 20:54 | RADIOLOGY REPORT (SQ) ---
MR BRAIN WITHOUT THEN WITH IV CONTRAST HISTORY: TIA. COMPARISON: CT scan from earlier the same day. TECHNIQUE: Multisequence, multiplanar MR imaging of the brain was performed without and with the administration of intravenous gadolinium. FINDINGS: There are multiple foci of restricted diffusion within the right basal ganglia and right periventricular and subcortical white matter in the right frontal and parietal lobes. There is T1 hyperintense signal within the right caudate nucleus and lentiform nucleus, nonspecific. Scattered areas of T2/FLAIR hyperintense foci are seen in the supratentorial white matter, likely representing chronic microvascular ischemia. There is no intracranial hemorrhage, extra-axial fluid collection, or mass. The orbits are unremarkable. The calvarium and skull base appear unremarkable. The paranasal sinuses are clear. IMPRESSION: 1. Acute lacunar infarcts in the right basal ganglia and right frontal and parietal white matter, which may be secondary to embolic phenomenon. 2. Chronic microvascular ischemic disease.
[2019-12-13] MEDS: ATORVASTATIN CALCIUM 80 MG TABLET PO SCH (21:33)
[2019-12-13] MEDS ORDERED: LABETALOL HCL INJ 20 MG/4 ML DISP.SYRIN IV PRN (22:29)
[2019-12-14] MEDS: ACETAMINOPHEN 325 MG TABLET PO PRN ×2 (00:10→17:58)
[2019-12-14 06:34] LABS: CHOLESTEROL 252.32 mg/dL (0-200); TRIGLYCERIDES 89 mg/dL (<150)
[2019-12-14 06:45] LABS: DIRECT LDL 135 mg/dL (<100)
[2019-12-14] MEDS: CLOPIDOGREL BISULFATE 75 MG TABLET PO SCH (09:41)
[2019-12-14] MEDS: ASPIRIN 81 MG TABLET, ENT COATED PO SCH (09:41)
[2019-12-14] MEDS: ENOXAPARIN SODIUM INJ 40 MG/0.4 ML DISP.SYRIN SUBCUT SCH (09:41)
--- NOTE | 2019-12-14 15:30 | RADIOLOGY REPORT (SQ) ---
EXAM DESCRIPTION: COOKIE SWALLOW IMAGES COMPLETED DATE/TIME: 12/14/2019 2:32 pm REASON FOR STUDY: dysphagia COMPARISON: None. TECHNIQUE: Videofluoroscopic swallowing examination was performed in conjunction with speech patholo gy. Videofluoroscopic imaging was obtained and reviewed and these are the findings: RADIATION DOSE: FLUORO TIME 1.26 MINUTES 1 images saved to PACS. LIMITATIONS: None FINDINGS: The patient was brought into the fluoro room and placed upright on a modified barium swall ow chair. The patient was then given multiple consistencies mixed with barium to swallow under live fluoroscopic video guidance. According to the Speech Pathologist there was no penetration or aspirat ion. Please refer to the speech pathology report for further details. IMPRESSION: NO EVIDENCE OF PENETRATION OR ASPIRATION. PLEASE SEE SPEECH PATHOLOGIST REPORT FOR OTHER FINDINGS AND RECOMMENDATIONS. COMMENT: None Quality ID [id number]: Final reports for procedures using fluoroscopy that document radiation exposure katelyn mariama, or exposure time and number of fluorographic images (if radiation exposure indices are not avail able) TECHNICAL DOCUMENTATION: JOB ID: [id number] 2010 [employer]- All Rights Reserved Reading location - IP/workstation name: [email or web address]
--- NOTE | 2019-12-14 16:10 | RADIOLOGY REPORT (SQ) ---
EXAM DESCRIPTION: CAROTID DOPPLER IMAGES COMPLETED DATE/TIME: 12/14/2019 4:01 pm REASON FOR STUDY: cva COMPARISON: None. TECHNIQUE: Grayscale ultrasound, Doppler velocity and spectra, and color Doppler images acquired of the extra-cranial carotid and vertebral arteries. Images stored on PACS. LIMITATIONS: None. FINDINGS: RIGHT CAROTID CCA Velocities: Within normal limits. ICA Velocities Peak systolic 0.62 m/s. End diastolic 0.28 m/s. Proximal ICA/CCA peak systolic ratio 1.4. Spectra normal. No significant plaque. LEFT CAROTID CCA Velocities: Within normal limits. ICA Velocities Peak systolic 1.10 m/s. End diastolic 0.40 m/s. Proximal ICA/CCA peak systolic ratio 1.6. Spectra normal. No significant plaque. VERTEBRAL ARTERIES: Antegrade flow. Normal waveforms. SUBCLAVIAN ARTERIES: No finding. OTHER: No other significant finding. IMPRESSION: NO HEMODYNAMICALLY SIGNIFICANT STENOSIS. COMMENT: Quality ID #[id number]: Velocity criteria are extrapolated from the diameter data as defined by t he Society of Radiologists in Ultrasound Consensus Conference. Radiology 2003: 229; 340-346. TECHNICAL DOCUMENTATION: JOB ID: [id number] 2010 [employer]- All Rights Reserved Reading location - IP/workstation name: [email or web address]
--- NOTE | 2019-12-14 17:10 | ST Inp Modified Barium Swallow ---
Medical Diagnosis - Medical Diagnoses Medical Diagnosis Description & ICD-10 Code(s): admitted for left weakness & slurred speech, suspected CVA - ICD-10 Tx Diagnosis Coding (1) Slurred speech ICD-10 Code(s): R47.81 - SLURRED SPEECH ST Inpatient MBS - General Date: 12/14/19 Date of Onset: 12/13/19 - History History Obtained From: Other - EMR -: Medical - Admitted 12/13/2019 following reported "tripping on rug" at home with noted left weakness and slurred speech. Seen this AM by ST with recommendation for MBSS. PMHX: Congestive heart failure, hypertension. Medications: Medications Reviewed Allergies: Refer to medical record - Subjective Current Nutritional Means: NPO Pain: 0/5 - Objective Assessment: Upright, Left Lateral - Food Trials Food Trials Used: Thin liquids, Pureed, Regular The Patient: Was Able to Self Feed - Assessment Labial Function: Within Normal Limits Lingual Function: Within Normal Limits Mandibular Function: Within Normal Limits - Pharyngeal Stage Initiation of Pharyngeal Stage: Delayed - to pyriforms Decreased Laryngeal Elevation: No Reduced Velo-Pharyngeal Closure: no Reduced Pressure Generation: Yes - mildly Reduced Tongue Base Retraction: No Pre-Swallowing Pooling in Valleculae: Mild Pre-Swallowing Pooling in Pyriforms: Mild Reduced Thyro-Hyiod Approximation: Yes Reduced Epiglottic Excursion: No Reduced Pharyngeal Peristalsis: No Multiple Swallows With: Effective Post Swallow Residuals in Valleculae: None Post Swallow Residuals in Pyriforms: None - Esophageal Stage Cricophageal Function: Normal - Impression/Summary Laryngeal Penetration: No Tracheal Aspiration: no Patient Presents With: Pharyngeal stage dysph. - mild Risk of Aspiration: Mild Risk of Nutritional Compromise: Mild - Recommendations Solid Diet Recommendations: Mechanical Soft, Chopped Meat Liquid Diet Recommendations: Thin Regular Diet: No Strict Aspitarion Precautions: Yes Dysphagia Therapy with INSTALLATION AND REPAIR TECHNICIAN: Yes Recommended Techniques: Fully Upright During Meal, Small Bites and Sips, Alternate Bites/Sips Supervision: Distant - Time Total Time: 15 Total Timed Minutes: 0
--- NOTE | 2019-12-14 19:43 | PDOC PROGRESS REPORT ---
Subjective Progress Note for:: 12/14/19 Subjective:: Patient seen by the bedside, she was admitted yesterday for the management of acute embolic stroke, she was kept n.p.o. modified barium swallow was done recommendation mechanical soft diet Reason For Visit: LEFT SIDED WEAKNESS,SLURRED SPEECH,ACUTE LACUNAR Physical Exam Vital Signs: Temp Pulse Resp BP Pulse Ox 98.1 F 56 L 16 156/87 H 99 12/14/19 16:13 12/14/19 16:13 12/14/19 16:13 12/14/19 15:18 12/14/19 16:13 Intake & Output 12/13/19 12/14/19 12/15/19 06:59 06:59 06:59 Intake Total 100 0 Output Total 400 Balance -300 0 Weight 91.2 kg General appearance: PRESENT: no acute distress Eye exam: PRESENT: PERRLA Respiratory exam: PRESENT: clear to auscultation joe Cardiovascular exam: PRESENT: +S1, +S2 GI/Abdominal exam: PRESENT: soft Neurological exam: PRESENT: alert, motor sensory deficit Results Laboratory Results: 12/13/19 13:53 12/13/19 13:53 12/14/19 05:24 Triglycerides 89 Cholesterol 252.32 H LDL Cholesterol Direct 135 H VLDL Cholesterol 18.0 HDL Cholesterol 67 12/13/19 12/13/19 12/13/19 13:53 13:53 18:15 Creatine Kinase 97 CK-MB (CK-2) 1.02 Troponin I < 0.012 0.017 12/14/19 12/14/19 00:24 05:24 Creatine Kinase CK-MB (CK-2) Troponin I 0.020 0.019 Impressions: Head MRI 12/13/19 00:00 IMPRESSION: 1. Acute lacunar infarcts in the right basal ganglia and right frontal and parietal white matter, which may be secondary to embolic phenomenon. 2. Chronic microvascular ischemic disease. Chest X-Ray 12/13/19 13:34 IMPRESSION: NO ACUTE RADIOGRAPHIC FINDING IN THE CHEST. Head CT 12/13/19 13:34 IMPRESSION: CHRONIC CHANGES OF ATROPHY AND MICROVASCULAR ISCHEMIA. NO ACUTE PROCESS. EVIDENCE OF ACUTE STROKE: NO. Carotid Doppler Study 12/14/19 00:00 IMPRESSION: NO HEMODYNAMICALLY SIGNIFICANT STENOSIS. Modified Barium Swallow 12/14/19 00:00 IMPRESSION: NO EVIDENCE OF PENETRATION OR ASPIRATION. PLEASE SEE SPEECH PATHOLOGIST REPORT FOR OTHER FINDINGS AND RECOMMENDATIONS. Assessment & Plan - Diagnosis (1) Right basal ganglia embolic stroke Is this a current diagnosis for this admission?: Yes Plan: Continue dual antiplatelet therapy, statin therapy, the carotid Doppler was negative (2) Hypertensive urgency Is this a current diagnosis for this admission?: Yes Plan: , The blood pressure is better controlled, will continue close monitoring - Time Time Spent with patient: 35 or more minutes Level of Care: IMCU Smoking Cessation Education: over 10 minutes Medications reviewed and adjusted accordingly: Yes Anticipated discharge: Home Anticipated DC Timeframe: within 72 hours
[2019-12-14] MEDS: ATORVASTATIN CALCIUM 80 MG TABLET PO SCH (22:23)
[2019-12-15] MEDS: ASPIRIN 81 MG TABLET, ENT COATED PO SCH (10:25)
[2019-12-15] MEDS: CLOPIDOGREL BISULFATE 75 MG TABLET PO SCH (10:25)
[2019-12-15] MEDS: ENOXAPARIN SODIUM INJ 40 MG/0.4 ML DISP.SYRIN SUBCUT SCH (10:25)
[2019-12-15] MEDS: LOSARTAN POTASSIUM 50 MG TABLET PO SCH (12:41)
--- NOTE | 2019-12-15 15:25 | PDOC PROGRESS REPORT ---
Subjective Progress Note for:: 12/15/19 Subjective:: Patient seen by the bedside admitted with CVA, left-sided weakness, she will need to go for inpatient rehabilitation, discharge planning will make arrangement for inpatient rehabilitation Reason For Visit: LEFT SIDED WEAKNESS,SLURRED SPEECH,ACUTE LACUNAR Physical Exam Vital Signs: Temp Pulse Resp BP Pulse Ox 98.5 F 67 18 186/99 H 100 12/15/19 12:15 12/15/19 14:00 12/15/19 12:52 12/15/19 12:52 12/15/19 12:52 Intake & Output 12/14/19 12/15/19 12/16/19 06:59 06:59 06:59 Intake Total 100 360 Output Total 400 100 Balance -300 260 Weight 91.2 kg 88.3 kg General appearance: PRESENT: no acute distress Eye exam: PRESENT: PERRLA Respiratory exam: PRESENT: clear to auscultation joe Cardiovascular exam: PRESENT: +S1, +S2 Neurological exam: PRESENT: alert, CN II-XII grossly intact Results Laboratory Results: 12/13/19 13:53 12/13/19 13:53 12/13/19 12/13/19 12/13/19 13:53 13:53 18:15 Creatine Kinase 97 CK-MB (CK-2) 1.02 Troponin I < 0.012 0.017 12/14/19 12/14/19 00:24 05:24 Creatine Kinase CK-MB (CK-2) Troponin I 0.020 0.019 Impressions: Head MRI 12/13/19 00:00 IMPRESSION: 1. Acute lacunar infarcts in the right basal ganglia and right frontal and parietal white matter, which may be secondary to embolic phenomenon. 2. Chronic microvascular ischemic disease. Chest X-Ray 12/13/19 13:34 IMPRESSION: NO ACUTE RADIOGRAPHIC FINDING IN THE CHEST. Head CT 12/13/19 13:34 IMPRESSION: CHRONIC CHANGES OF ATROPHY AND MICROVASCULAR ISCHEMIA. NO ACUTE PROCESS. EVIDENCE OF ACUTE STROKE: NO. Carotid Doppler Study 12/14/19 00:00 IMPRESSION: NO HEMODYNAMICALLY SIGNIFICANT STENOSIS. Modified Barium Swallow 12/14/19 00:00 IMPRESSION: NO EVIDENCE OF PENETRATION OR ASPIRATION. PLEASE SEE SPEECH PATHOLOGIST REPORT FOR OTHER FINDINGS AND RECOMMENDATIONS. Assessment & Plan - Diagnosis (1) Right basal ganglia embolic stroke Is this a current diagnosis for this admission?: Yes Plan: Start medication for the control blood pressure slowly, Blood pressure has been permissively elevated for more than 24 hours since admission, now we can slowly begin to reduce blood pressure with medication without provoking extension of the stroke. (2) Hypertensive urgency Is this a current diagnosis for this admission?: Yes - Time Time Spent with patient: 35 or more minutes Level of Care: IMCU Medications reviewed and adjusted accordingly: Yes Anticipated discharge: Acute Rehab Anticipated DC Timeframe: within 36 hours
[2019-12-15 16:14] LABS: ABSOLUTE EOSINOPHILS # (AUTO) 0.2 10^3/uL (0.0-0.6); ABSOLUTE LYMPHOCYTES (AUTO) 1.6 10^3/uL (0.5-4.7); ABSOLUTE MONOCYTES (AUTO) 0.5 10^3/uL (0.1-1.4); ABSOLUTE NEUT (AUTO) 3.8 10^3/uL (1.7-8.2); BASOPHILS % (AUTO) 0.7 % (0-2); EOSINOPHILS % (AUTO) 2.6 % (0-6); HEMATOCRIT 40.7 % (36.0-47.0); HEMOGLOBIN 13.7 g/dL (12.0-15.5); LYMPHOCYTES % (AUTO) 26.2 % (13-45); MEAN CORPUSCULAR HEMOGLOBIN 31.5 pg (27.0-33.4); MEAN CORPUSCULAR HGB CONC 33.5 g/dL (32.0-36.0); MEAN CORPUSCULAR VOLUME 94 fl (80-97); MONOCYTES % (AUTO) 8.5 % (3-13); PLATELET COUNT 188 10^3/uL (150-450); RED BLOOD COUNT 4.33 10^6/uL (3.72-5.28); RED CELL DISTRIBUTION WIDTH 15.3 % (11.5-14.0); TOTAL CELLS COUNTED % (AUTO) 100 %; WHITE BLOOD COUNT 6.2 10^3/uL (4.0-10.5)
[2019-12-15 16:35] LABS: ALBUMIN 4.1 g/dL (3.5-5.0); ALKALINE PHOSPHATASE 103 U/L (38-126); ASPARTATE AMINO TRANSFERASE 28 U/L (14-36); BILIRUBIN,TOTAL 0.5 mg/dL (0.2-1.3); BLOOD UREA NITROGEN 23 mg/dL (7-20); CALCIUM 9.3 mg/dL (8.4-10.2); CARBON DIOXIDE 25 mmol/L (22-30); CHLORIDE 108 mmol/L (98-107); GLUCOSE 96 mg/dL (75-110); POTASSIUM 4.2 mmol/L (3.6-5.0); TOTAL PROTEIN 7.8 g/dL (6.3-8.2)
[2019-12-15 16:38] LABS: ANION GAP 3 (5-19)
[2019-12-15] MEDS: ATORVASTATIN CALCIUM 80 MG TABLET PO SCH (22:45)
--- NOTE | 2019-12-15 23:25 | XCELERA REPORT ---
[address] [address] Transthoracic Echocardiogram Report Name: MIKKI POWER Age: 64 yrs Gender: Female : 1955 Patient Status: Inpatient Patient Location: [address] [place] [address] Study Date: 12/14/2019 09:56 AM Height: 63 in Weight: 188 lb BSA: 1.9 m2 Procedure: A two-dimensional transthoracic echocardiogram with color flow and Doppler was performed. The study was technically difficult with many images being suboptimal in quality. Reason For Study: CVA History: CVA. Ordering Physician: MARC MCCULLOUGH Performed By: Rosa Gooden Interpretation Summary There is no obvious cardiac source of embolus noted on this transthoracic echocardiogram. Follow-up with a RITA is suggested if cardiac source is still suspected. The left ventricle is normal in size. There is moderate concentric left ventricular hypertrophy. LV EF is > than 60% Left ventricular systolic function is normal. Doppler measurements suggest impaired left ventricular relaxation, which is associated with grade I/IV or mild diastolic dysfunction The left ventricular wall motion is normal. There is no thrombus. Probably no ASD,VSD,or PFO seen. The right ventricle is normal in size and function. The right atrium is normal. The left atrial size is normal. There is no evidence of mitral valve prolapse. There is no mitral valve stenosis. There is no vegetation seen on the mitral valve. There is a trace amount of mitral regurgitation There is no aortic valvular vegetation. There is no aortic valve stenosis There is no LVOT obstruction. No aortic regurgitation is present. There is no tricuspid stenosis. There is a trace amount of tricuspid regurgitation Upper normal to mild Pulmonary hypertension.RVSP is 30 to 35 mm of HG , with RA mean of 5 to 10. There is no pulmonic valvular stenosis. There is a trace amount of pulmonic regurgitation The aortic root is normal size. There is no pericardial effusion. There is no obvious cardiac source of embolus noted on this transthoracic echocardiogram. Follow-up with a RITA is suggested if cardiac source is still suspected MMode/2D Measurements & Calculations RVDd: 3.1 cm LVIDd: 5.0 cm FS: 28.6 % Ao root diam: 2.8 cm IVSd: 1.7 cm LVIDs: 3.6 cm EDV(Teich): 119.2 ml Ao root area: 6.4 cm2 LVPWd: 1.6 cm ESV(Teich): 53.8 ml LA dimension: 3.5 cm EF(Teich): 54.9 % Doppler Measurements & Calculations MV E max nena: MV P1/2t max nena: Ao V2 max: LV V1 max P.4 cm/sec 53.6 cm/sec 152.0 cm/sec 2.8 mmHg MV A max nena: MV P1/2t: 100.9 msec Ao max PG: LV V1 max: 67.1 cm/sec MVA(P1/2t): 2.2 cm2 9.2 mmHg 84.1 cm/sec MV E/A: 0.78 MV dec slope: 155.6 cm/sec2 MV dec time: 0.35 sec PA V2 max: PI end-d nena: TR max nena: MV P1/2t-pr_phl: 75.0 cm/sec 107.6 cm/sec 247.2 cm/sec 100.9 msec PA max PG: TR max P.3 mmHg 24.5 mmHg Left Ventricle The left ventricle is normal in size. There is moderate concentric left ventricular hypertrophy. LV EF is > than 60%. Left ventricular systolic function is normal. Doppler measurements suggest impaired left ventricular relaxation, which is associated with grade I/IV or mild diastolic dysfunction. The left ventricular wall motion is normal. There is no thrombus. Probably no ASD,VSD,or PFO seen. Right Ventricle The right ventricle is normal in size and function. Atria The right atrium is normal. The left atrial size is normal. Mitral Valve There is no evidence of mitral valve prolapse. There is no vegetation seen on the mitral valve. There is no mitral valve stenosis. There is a trace amount of mitral regurgitation. Aortic Valve There is no aortic valvular vegetation. There is no aortic valve stenosis. There is no LVOT obstruction. No aortic regurgitation is present. Tricuspid Valve There is no tricuspid stenosis. There is a trace amount of tricuspid regurgitation. Upper normal to mild Pulmonary hypertension.RVSP is 30 to 35 mm of HG , with RA mean of 5 to 10. Pulmonic Valve There is no pulmonic valvular stenosis. There is a trace amount of pulmonic regurgitation. Great Vessels The aortic root is normal size. The inferior vena cava appeared normal and decreased > 50% with respiration (RAP 5-10 mmHg). Effusions There is no pericardial effusion. : MARC MCCULLOUGH Lakshmi
[2019-12-16] MEDS ORDERED: METOPROLOL SUCCINATE 50 MG TAB.SR.24H PO ONE (06:45)
[2019-12-16] MEDS: ASPIRIN 81 MG TABLET, ENT COATED PO SCH (09:34)
[2019-12-16] MEDS: LOSARTAN POTASSIUM 50 MG TABLET PO SCH (09:34)
[2019-12-16] MEDS: ENOXAPARIN SODIUM INJ 40 MG/0.4 ML DISP.SYRIN SUBCUT SCH (09:34)
[2019-12-16] MEDS: CLOPIDOGREL BISULFATE 75 MG TABLET PO SCH (09:34)
--- NOTE | 2019-12-16 11:15 | PDOC PROGRESS REPORT ---
Subjective Progress Note for:: 12/16/19 Subjective:: Patient seen by the bedside, physical therapist in the room working with her, she is having more difficulty today with ambulation, she will need to go to rehabilitation Reason For Visit: LEFT SIDED WEAKNESS,SLURRED SPEECH,ACUTE LACUNAR Physical Exam Vital Signs: Temp Pulse Resp BP Pulse Ox 97.5 F 77 15 160/87 H 100 12/16/19 08:08 12/16/19 09:31 12/16/19 08:08 12/16/19 09:31 12/16/19 08:08 Intake & Output 12/15/19 12/16/19 12/17/19 06:59 06:59 06:59 Intake Total 360 638 Output Total 100 Balance 260 638 Weight 88.3 kg 87.4 kg General appearance: PRESENT: no acute distress Head exam: PRESENT: atraumatic, normocephalic Eye exam: PRESENT: PERRLA Ear exam: PRESENT: normal external ear exam Mouth exam: PRESENT: moist, tongue midline Neck exam: PRESENT: full ROM Respiratory exam: PRESENT: clear to auscultation joe Cardiovascular exam: PRESENT: RRR, +S1, +S2 Pulses: PRESENT: normal dorsalis pedis pul, +2 pedal pulses bilateral Vascular exam: PRESENT: normal capillary refill GI/Abdominal exam: PRESENT: normal bowel sounds, soft Rectal exam: PRESENT: deferred Neurological exam: PRESENT: alert, motor sensory deficit Psychiatric exam: PRESENT: appropriate affect, normal mood Skin exam: PRESENT: dry, intact, warm. ABSENT: cyanosis, rash Results Laboratory Results: 12/15/19 16:00 12/15/19 16:00 12/15/19 12/15/19 16:00 16:00 WBC 6.2 RBC 4.33 Hgb 13.7 Hct 40.7 MCV 94 MCH 31.5 MCHC 33.5 RDW 15.3 H Plt Count 188 Seg Neutrophils % 62.0 Sodium 136.4 L Potassium 4.2 Chloride 108 H Carbon Dioxide 25 Anion Gap 3 L BUN 23 H Creatinine 1.03 Est GFR ( Amer) > 60 Glucose 96 Calcium 9.3 Total Bilirubin 0.5 AST 28 Alkaline Phosphatase 103 Total Protein 7.8 Albumin 4.1 12/13/19 12/13/19 12/13/19 13:53 13:53 18:15 Creatine Kinase 97 CK-MB (CK-2) 1.02 Troponin I < 0.012 0.017 12/14/19 08 00:24 05:24 Creatine Kinase CK-MB (CK-2) Troponin I 0.020 0.019 Impressions: Head MRI 12/13/19 00:00 IMPRESSION: 1. Acute lacunar infarcts in the right basal ganglia and right frontal and parietal white matter, which may be secondary to embolic phenomenon. 2. Chronic microvascular ischemic disease. Chest X-Ray 12/13/19 13:34 IMPRESSION: NO ACUTE RADIOGRAPHIC FINDING IN THE CHEST. Head CT 12/13/19 13:34 IMPRESSION: CHRONIC CHANGES OF ATROPHY AND MICROVASCULAR ISCHEMIA. NO ACUTE PROCESS. EVIDENCE OF ACUTE STROKE: NO. Carotid Doppler Study 12/14/19 00:00 IMPRESSION: NO HEMODYNAMICALLY SIGNIFICANT STENOSIS. Modified Barium Swallow 12/14/19 00:00 IMPRESSION: NO EVIDENCE OF PENETRATION OR ASPIRATION. PLEASE SEE SPEECH PATHOLOGIST REPORT FOR OTHER FINDINGS AND RECOMMENDATIONS. Assessment & Plan - Diagnosis (1) Right basal ganglia embolic stroke Is this a current diagnosis for this admission?: Yes Plan: Continue anti-stroke management, high intensity atorvastatin, antiplatelet medications, Plavix aspirin for 3 weeks (2) Hypertensive urgency Is this a current diagnosis for this admission?: Yes Plan: Start losartan, metoprolol - Time Time Spent with patient: 35 or more minutes Level of Care: IMCU Medications reviewed and adjusted accordingly: Yes Anticipated discharge: Acute Rehab Anticipated DC Timeframe: within 48 hours - Inpatient Certification Based on my medical assessment, after consideration of the patient's comorbidities, presenting symptoms, or acuity I expect that the services needed warrant INPATIENT care.: Yes I certify that my determination is in accordance with my understanding of Medicare's requirements for reasonable and necessary INPATIENT services [42 CFR 412.3e].: Yes
[2019-12-16] MEDS: METOPROLOL SUCCINATE 50 MG TAB.SR.24H PO SCH (18:09)
[2019-12-16] MEDS: ATORVASTATIN CALCIUM 80 MG TABLET PO SCH (21:25)
[2019-12-17] MEDS: METOPROLOL SUCCINATE 50 MG TAB.SR.24H PO SCH ×2 (06:00→17:22)
[2019-12-17] MEDS: LOSARTAN POTASSIUM 50 MG TABLET PO SCH (09:36)
[2019-12-17] MEDS: CLOPIDOGREL BISULFATE 75 MG TABLET PO SCH (09:36)
[2019-12-17] MEDS: ENOXAPARIN SODIUM INJ 40 MG/0.4 ML DISP.SYRIN SUBCUT SCH (09:37)
[2019-12-17] MEDS: ASPIRIN 81 MG TABLET, ENT COATED PO SCH (09:37)
--- NOTE | 2019-12-17 18:36 | PDOC PROGRESS REPORT ---
Subjective Progress Note for:: 12/17/19 Subjective:: She has CVA with right-sided hemiparesis, she is undergoing physical therapy in the hospital, the plan is to discharge to inpatient rehab, discharge planning making efforts to get placement Reason For Visit: LEFT SIDED WEAKNESS,SLURRED SPEECH,ACUTE LACUNAR Physical Exam Vital Signs: Temp Pulse Resp BP Pulse Ox 97.7 F 56 L 18 153/99 H 100 12/17/19 08:13 12/17/19 14:06 12/17/19 14:06 12/17/19 14:06 12/17/19 14:06 Intake & Output 12/16/19 12/17/19 12/18/19 06:59 06:59 06:59 Intake Total 638 880 460 Balance 638 880 460 Weight 87.4 kg 84.1 kg General appearance: PRESENT: no acute distress Eye exam: PRESENT: PERRLA Respiratory exam: PRESENT: clear to auscultation joe Cardiovascular exam: PRESENT: +S1, +S2 GI/Abdominal exam: PRESENT: soft Neurological exam: PRESENT: alert, motor sensory deficit Results Laboratory Results: 12/15/19 16:00 12/15/19 16:00 12/13/19 12/13/19 12/13/19 13:53 13:53 18:15 Creatine Kinase 97 CK-MB (CK-2) 1.02 Troponin I < 0.012 0.017 12/14/19 12/14/19 00:24 05:24 Creatine Kinase CK-MB (CK-2) Troponin I 0.020 0.019 Impressions: Head MRI 12/13/19 00:00 IMPRESSION: 1. Acute lacunar infarcts in the right basal ganglia and right frontal and parietal white matter, which may be secondary to embolic phenomenon. 2. Chronic microvascular ischemic disease. Chest X-Ray 12/13/19 13:34 IMPRESSION: NO ACUTE RADIOGRAPHIC FINDING IN THE CHEST. Head CT 12/13/19 13:34 IMPRESSION: CHRONIC CHANGES OF ATROPHY AND MICROVASCULAR ISCHEMIA. NO ACUTE PROCESS. EVIDENCE OF ACUTE STROKE: NO. Carotid Doppler Study 12/14/19 00:00 IMPRESSION: NO HEMODYNAMICALLY SIGNIFICANT STENOSIS. Modified Barium Swallow 12/14/19 00:00 IMPRESSION: NO EVIDENCE OF PENETRATION OR ASPIRATION. PLEASE SEE SPEECH PATHOLOGIST REPORT FOR OTHER FINDINGS AND RECOMMENDATIONS. Assessment & Plan - Diagnosis (1) Right basal ganglia embolic stroke Is this a current diagnosis for this admission?: Yes Plan: Continue anti-stroke management, high intensity atorvastatin, antiplatelet medications, Plavix aspirin for 3 weeks (2) Hypertensive urgency Is this a current diagnosis for this admission?: Yes Plan: continue losartan, metoprolol - Time Time Spent with patient: 25-34 minutes Level of Care: IMCU Medications reviewed and adjusted accordingly: Yes Anticipated discharge: Acute Rehab Anticipated DC Timeframe: within 72 hours
[2019-12-17] MEDS: ATORVASTATIN CALCIUM 80 MG TABLET PO SCH (21:30)
[2019-12-18] MEDS: METOPROLOL SUCCINATE 50 MG TAB.SR.24H PO SCH ×2 (05:44→17:56)
[2019-12-18] MEDS: ENOXAPARIN SODIUM INJ 40 MG/0.4 ML DISP.SYRIN SUBCUT SCH (09:38)
[2019-12-18] MEDS: ASPIRIN 81 MG TABLET, ENT COATED PO SCH (09:38)
[2019-12-18] MEDS: CLOPIDOGREL BISULFATE 75 MG TABLET PO SCH (09:38)
[2019-12-18] MEDS: LOSARTAN POTASSIUM 50 MG TABLET PO SCH (09:38)
--- NOTE | 2019-12-18 19:53 | PDOC PROGRESS REPORT ---
Subjective Progress Note for:: 12/18/19 Subjective:: She has CVA with left-sided weakness, presently waiting for [employer] insurance to authorize physical therapy Reason For Visit: LEFT SIDED WEAKNESS,SLURRED SPEECH,ACUTE LACUNAR Physical Exam Vital Signs: Temp Pulse Resp BP Pulse Ox 98.1 F 59 L 18 166/85 H 98 12/18/19 15:18 12/18/19 17:00 12/18/19 17:00 12/18/19 17:00 12/18/19 17:00 Intake & Output 12/17/19 12/18/19 12/19/19 06:59 06:59 06:59 Intake Total 880 681 360 Output Total 250 Balance 880 681 110 Weight 84.1 kg 82.1 kg General appearance: PRESENT: no acute distress, well-developed, well-nourished Head exam: PRESENT: atraumatic, normocephalic Eye exam: PRESENT: conjunctiva pink, EOMI, PERRLA. ABSENT: scleral icterus Ear exam: PRESENT: normal external ear exam Mouth exam: PRESENT: moist, tongue midline Neck exam: PRESENT: full ROM Respiratory exam: PRESENT: clear to auscultation joe Cardiovascular exam: PRESENT: RRR, +S1, +S2 Pulses: PRESENT: normal dorsalis pedis pul, +2 pedal pulses bilateral Vascular exam: PRESENT: normal capillary refill GI/Abdominal exam: PRESENT: normal bowel sounds, soft Rectal exam: PRESENT: deferred Neurological exam: PRESENT: alert, motor sensory deficit Psychiatric exam: PRESENT: appropriate affect, normal mood Skin exam: PRESENT: dry, intact, warm. ABSENT: cyanosis, rash Results Laboratory Results: 12/15/19 16:00 12/15/19 16:00 12/13/19 12/13/19 12/13/19 13:53 13:53 18:15 Creatine Kinase 97 CK-MB (CK-2) 1.02 Troponin I < 0.012 0.017 12/14/19 12/14/19 00:24 05:24 Creatine Kinase CK-MB (CK-2) Troponin I 0.020 0.019 Impressions: Head MRI 12/13/19 00:00 IMPRESSION: 1. Acute lacunar infarcts in the right basal ganglia and right frontal and parietal white matter, which may be secondary to embolic phenomenon. 2. Chronic microvascular ischemic disease. Chest X-Ray 12/13/19 13:34 IMPRESSION: NO ACUTE RADIOGRAPHIC FINDING IN THE CHEST. Head CT 12/13/19 13:34 IMPRESSION: CHRONIC CHANGES OF ATROPHY AND MICROVASCULAR ISCHEMIA. NO ACUTE PROCESS. EVIDENCE OF ACUTE STROKE: NO. Carotid Doppler Study 12/14/19 00:00 IMPRESSION: NO HEMODYNAMICALLY SIGNIFICANT STENOSIS. Modified Barium Swallow 12/14/19 00:00 IMPRESSION: NO EVIDENCE OF PENETRATION OR ASPIRATION. PLEASE SEE SPEECH PATHOLOGIST REPORT FOR OTHER FINDINGS AND RECOMMENDATIONS. Assessment & Plan - Diagnosis (1) Right basal ganglia embolic stroke Is this a current diagnosis for this admission?: Yes Plan: Continue anti-stroke management, high intensity atorvastatin, antiplatelet medications, Plavix aspirin for 3 weeks (2) Hypertensive urgency Is this a current diagnosis for this admission?: Yes Plan: continue losartan, metoprolol - Time Time Spent with patient: 25-34 minutes Level of Care: IMCU Medications reviewed and adjusted accordingly: Yes Anticipated discharge: Acute Rehab Anticipated DC Timeframe: within 36 hours
[2019-12-18] MEDS: AMLODIPINE BESYLATE 10 MG TABLET PO SCH (20:00)
[2019-12-18] MEDS: ATORVASTATIN CALCIUM 80 MG TABLET PO SCH (22:23)
[2019-12-18] MEDS: ACETAMINOPHEN 325 MG TABLET PO PRN (22:25)
[2019-12-19] MEDS: METOPROLOL SUCCINATE 50 MG TAB.SR.24H PO SCH ×2 (05:57→17:11)
[2019-12-19] MEDS: AMLODIPINE BESYLATE 10 MG TABLET PO SCH (09:38)
[2019-12-19] MEDS: ASPIRIN 81 MG TABLET, ENT COATED PO SCH (09:38)
[2019-12-19] MEDS: CLOPIDOGREL BISULFATE 75 MG TABLET PO SCH (09:38)
[2019-12-19] MEDS: ENOXAPARIN SODIUM INJ 40 MG/0.4 ML DISP.SYRIN SUBCUT SCH (09:38)
[2019-12-19] MEDS: LOSARTAN POTASSIUM 50 MG TABLET PO SCH (09:38)
--- NOTE | 2019-12-19 15:33 | PDOC PROGRESS REPORT ---
Subjective Progress Note for:: 12/19/19 Subjective:: Patient seen by the bedside she has CVA with paralysis of the left side awaiting transfer to rehab, insurance yet to authorize rehab therapy Reason For Visit: LEFT SIDED WEAKNESS,SLURRED SPEECH,ACUTE LACUNAR Physical Exam Vital Signs: Temp Pulse Resp BP Pulse Ox 98.0 F 53 L 18 153/92 H 99 12/19/19 11:18 12/19/19 14:53 12/19/19 14:53 12/19/19 14:53 12/19/19 14:53 Intake & Output 12/18/19 12/19/19 12/20/19 06:59 06:59 06:59 Intake Total 681 500 Output Total 250 Balance 681 250 Weight 82.1 kg 84.3 kg General appearance: PRESENT: no acute distress Eye exam: PRESENT: PERRLA Respiratory exam: PRESENT: clear to auscultation joe Cardiovascular exam: PRESENT: +S1, +S2 GI/Abdominal exam: PRESENT: soft Neurological exam: PRESENT: alert Results Laboratory Results: 12/15/19 16:00 12/15/19 16:00 12/13/19 12/13/19 12/13/19 13:53 13:53 18:15 Creatine Kinase 97 CK-MB (CK-2) 1.02 Troponin I < 0.012 0.017 12/14/19 12/14/19 00:24 05:24 Creatine Kinase CK-MB (CK-2) Troponin I 0.020 0.019 Impressions: Head MRI 12/13/19 00:00 IMPRESSION: 1. Acute lacunar infarcts in the right basal ganglia and right frontal and parietal white matter, which may be secondary to embolic phenomenon. 2. Chronic microvascular ischemic disease. Chest X-Ray 12/13/19 13:34 IMPRESSION: NO ACUTE RADIOGRAPHIC FINDING IN THE CHEST. Head CT 12/13/19 13:34 IMPRESSION: CHRONIC CHANGES OF ATROPHY AND MICROVASCULAR ISCHEMIA. NO ACUTE PROCESS. EVIDENCE OF ACUTE STROKE: NO. Carotid Doppler Study 12/14/19 00:00 IMPRESSION: NO HEMODYNAMICALLY SIGNIFICANT STENOSIS. Modified Barium Swallow 12/14/19 00:00 IMPRESSION: NO EVIDENCE OF PENETRATION OR ASPIRATION. PLEASE SEE SPEECH PATHOLOGIST REPORT FOR OTHER FINDINGS AND RECOMMENDATIONS. Assessment & Plan - Diagnosis (1) Right basal ganglia embolic stroke Is this a current diagnosis for this admission?: Yes Plan: Continue anti-stroke management, high intensity atorvastatin, antiplatelet medications, Plavix aspirin for 3 weeks (2) Hypertensive urgency Is this a current diagnosis for this admission?: Yes Plan: continue losartan, metoprolol and amlodipine - Time Time Spent with patient: 25-34 minutes Level of Care: IMCU Medications reviewed and adjusted accordingly: Yes Anticipated discharge: Home, Acute Rehab Anticipated DC Timeframe: Other
[2019-12-19] MEDS: ATORVASTATIN CALCIUM 80 MG TABLET PO SCH (21:08)
[2019-12-20] MEDS: METOPROLOL SUCCINATE 50 MG TAB.SR.24H PO SCH ×2 (06:01→18:13)
[2019-12-20] MEDS: AMLODIPINE BESYLATE 10 MG TABLET PO SCH (09:47)
[2019-12-20] MEDS: CLOPIDOGREL BISULFATE 75 MG TABLET PO SCH (09:48)
[2019-12-20] MEDS: LOSARTAN POTASSIUM 50 MG TABLET PO SCH (09:48)
[2019-12-20] MEDS: ASPIRIN 81 MG TABLET, ENT COATED PO SCH (09:48)
[2019-12-20] MEDS: ENOXAPARIN SODIUM INJ 40 MG/0.4 ML DISP.SYRIN SUBCUT SCH (09:49)
--- NOTE | 2019-12-20 19:34 | PDOC PROGRESS REPORT ---
Subjective Progress Note for:: 12/20/19 Subjective:: Patient seen by the bedside she has CVA with paralysis of the left side awaiting transfer to rehab, insurance yet to authorize rehab therapy Reason For Visit: LEFT SIDED WEAKNESS,SLURRED SPEECH,ACUTE LACUNAR Physical Exam Vital Signs: Temp Pulse Resp BP Pulse Ox 97.9 F 64 18 152/86 H 100 12/20/19 16:08 12/20/19 17:00 12/20/19 17:00 12/20/19 17:00 12/20/19 17:00 Intake & Output 12/19/19 12/20/19 12/21/19 06:59 06:59 06:59 Intake Total 500 380 240 Output Total 250 Balance 250 380 240 Weight 84.3 kg 82.7 kg General appearance: PRESENT: no acute distress Eye exam: PRESENT: PERRLA Respiratory exam: PRESENT: clear to auscultation joe Cardiovascular exam: PRESENT: +S1, +S2 GI/Abdominal exam: PRESENT: soft Neurological exam: PRESENT: alert Results Laboratory Results: 12/15/19 16:00 12/15/19 16:00 12/13/19 12/13/19 12/13/19 13:53 13:53 18:15 Creatine Kinase 97 CK-MB (CK-2) 1.02 Troponin I < 0.012 0.017 12/14/19 12/14/19 00:24 05:24 Creatine Kinase CK-MB (CK-2) Troponin I 0.020 0.019 Impressions: Head MRI 12/13/19 00:00 IMPRESSION: 1. Acute lacunar infarcts in the right basal ganglia and right frontal and parietal white matter, which may be secondary to embolic phenomenon. 2. Chronic microvascular ischemic disease. Chest X-Ray 12/13/19 13:34 IMPRESSION: NO ACUTE RADIOGRAPHIC FINDING IN THE CHEST. Head CT 12/13/19 13:34 IMPRESSION: CHRONIC CHANGES OF ATROPHY AND MICROVASCULAR ISCHEMIA. NO ACUTE PROCESS. EVIDENCE OF ACUTE STROKE: NO. Carotid Doppler Study 12/14/19 00:00 IMPRESSION: NO HEMODYNAMICALLY SIGNIFICANT STENOSIS. Modified Barium Swallow 12/14/19 00:00 IMPRESSION: NO EVIDENCE OF PENETRATION OR ASPIRATION. PLEASE SEE SPEECH PATHOLOGIST REPORT FOR OTHER FINDINGS AND RECOMMENDATIONS. Assessment & Plan - Diagnosis (1) Right basal ganglia embolic stroke Is this a current diagnosis for this admission?: Yes Plan: Continue anti-stroke management, high intensity atorvastatin, antiplatelet medications, Plavix aspirin for 3 weeks (2) Hypertensive urgency Is this a current diagnosis for this admission?: Yes Plan: continue losartan, metoprolol and amlodipine - Time Time Spent with patient: 25-34 minutes Level of Care: IMCU Medications reviewed and adjusted accordingly: Yes Anticipated discharge: Acute Rehab - Inpatient Certification Based on my medical assessment, after consideration of the patient's comorbidities, presenting symptoms, or acuity I expect that the services needed warrant INPATIENT care.: Yes I certify that my determination is in accordance with my understanding of Medicare's requirements for reasonable and necessary INPATIENT services [42 CFR 412.3e].: Yes
[2019-12-20] MEDS: ATORVASTATIN CALCIUM 80 MG TABLET PO SCH (21:25)
[2019-12-21] MEDS: METOPROLOL SUCCINATE 50 MG TAB.SR.24H PO SCH ×2 (05:52→19:07)
[2019-12-21] MEDS: ENOXAPARIN SODIUM INJ 40 MG/0.4 ML DISP.SYRIN SUBCUT SCH (09:24)
[2019-12-21] MEDS: ASPIRIN 81 MG TABLET, ENT COATED PO SCH (09:24)
[2019-12-21] MEDS: AMLODIPINE BESYLATE 10 MG TABLET PO SCH (09:24)
[2019-12-21] MEDS: LOSARTAN POTASSIUM 50 MG TABLET PO SCH (09:24)
[2019-12-21] MEDS: CLOPIDOGREL BISULFATE 75 MG TABLET PO SCH (09:24)
--- NOTE | 2019-12-21 20:59 | PDOC PROGRESS REPORT ---
Subjective Progress Note for:: 12/21/19 Subjective:: Patient with CVA awaiting [facility] authorization to transfer patient to acute rehab, already accepted by the hospital for inpatient rehab Reason For Visit: LEFT SIDED WEAKNESS,SLURRED SPEECH,ACUTE LACUNAR Physical Exam Vital Signs: Temp Pulse Resp BP Pulse Ox 99.0 F 68 16 153/85 H 100 12/21/19 19:28 12/21/19 19:28 12/21/19 19:28 12/21/19 19:28 12/21/19 19:28 Intake & Output 12/20/19 12/21/19 12/22/19 06:59 06:59 06:59 Intake Total 380 640 120 Balance 380 640 120 Weight 82.7 kg 83.1 kg General appearance: PRESENT: no acute distress Eye exam: PRESENT: PERRLA Respiratory exam: PRESENT: clear to auscultation joe Cardiovascular exam: PRESENT: +S1, +S2 GI/Abdominal exam: PRESENT: soft Neurological exam: PRESENT: alert, CN II-XII grossly intact Results Laboratory Results: 12/15/19 16:00 12/15/19 16:00 12/13/19 12/13/19 12/13/19 13:53 13:53 18:15 Creatine Kinase 97 CK-MB (CK-2) 1.02 Troponin I < 0.012 0.017 12/14/19 12/14/19 00:24 05:24 Creatine Kinase CK-MB (CK-2) Troponin I 0.020 0.019 Impressions: Head MRI 12/13/19 00:00 IMPRESSION: 1. Acute lacunar infarcts in the right basal ganglia and right frontal and parietal white matter, which may be secondary to embolic phenomenon. 2. Chronic microvascular ischemic disease. Chest X-Ray 12/13/19 13:34 IMPRESSION: NO ACUTE RADIOGRAPHIC FINDING IN THE CHEST. Head CT 12/13/19 13:34 IMPRESSION: CHRONIC CHANGES OF ATROPHY AND MICROVASCULAR ISCHEMIA. NO ACUTE PROCESS. EVIDENCE OF ACUTE STROKE: NO. Carotid Doppler Study 12/14/19 00:00 IMPRESSION: NO HEMODYNAMICALLY SIGNIFICANT STENOSIS. Modified Barium Swallow 12/14/19 00:00 IMPRESSION: NO EVIDENCE OF PENETRATION OR ASPIRATION. PLEASE SEE SPEECH PATHOLOGIST REPORT FOR OTHER FINDINGS AND RECOMMENDATIONS. Assessment & Plan - Diagnosis (1) Right basal ganglia embolic stroke Is this a current diagnosis for this admission?: Yes Plan: Continue anti-stroke management, high intensity atorvastatin, antiplatelet medications, Plavix aspirin for 3 weeks (2) Hypertensive urgency Is this a current diagnosis for this admission?: Yes - Time Time Spent with patient: 25-34 minutes Level of Care: IMCU Medications reviewed and adjusted accordingly: Yes Anticipated discharge: Acute Rehab Anticipated DC Timeframe: when bed available
[2019-12-21] MEDS: ATORVASTATIN CALCIUM 80 MG TABLET PO SCH (21:22)
[2019-12-22] MEDS: METOPROLOL SUCCINATE 50 MG TAB.SR.24H PO SCH ×2 (05:13→17:08)
[2019-12-22] MEDS: ENOXAPARIN SODIUM INJ 40 MG/0.4 ML DISP.SYRIN SUBCUT SCH (09:54)
[2019-12-22] MEDS: LOSARTAN POTASSIUM 50 MG TABLET PO SCH (09:54)
[2019-12-22] MEDS: CLOPIDOGREL BISULFATE 75 MG TABLET PO SCH (09:54)
[2019-12-22] MEDS: AMLODIPINE BESYLATE 10 MG TABLET PO SCH (09:54)
[2019-12-22] MEDS: ASPIRIN 81 MG TABLET, ENT COATED PO SCH (09:54)
--- NOTE | 2019-12-22 14:45 | PDOC PROGRESS REPORT ---
Subjective Progress Note for:: 12/22/19 Subjective:: Patient denied any chest pain or difficulty with breathing. No abdominal pain, nausea or vomiting. No fever or chills. Reason For Visit: LEFT SIDED WEAKNESS,SLURRED SPEECH,ACUTE LACUNAR Physical Exam Vital Signs: Temp Pulse Resp BP Pulse Ox 97.9 F 60 16 155/89 H 97 12/22/19 11:49 12/22/19 11:49 12/22/19 11:49 12/22/19 11:49 12/22/19 11:49 Intake & Output 12/21/19 12/22/19 12/23/19 06:59 06:59 06:59 Intake Total 640 420 Output Total 250 150 Balance 640 170 -150 Weight 83.1 kg 81.3 kg General appearance: PRESENT: no acute distress, obese Eye exam: PRESENT: conjunctiva pink. ABSENT: scleral icterus Mouth exam: PRESENT: moist Respiratory exam: PRESENT: clear to auscultation joe Cardiovascular exam: PRESENT: RRR. ABSENT: diastolic murmur, rubs, systolic murmur Vascular exam: ABSENT: pallor GI/Abdominal exam: PRESENT: normal bowel sounds, soft. ABSENT: distended, guarding, mass, organolmegaly, rebound, tenderness Extremities exam: ABSENT: pedal edema Neurological exam: PRESENT: alert, awake, oriented to person, oriented to place, oriented to time, oriented to situation, CN II-XII grossly intact. ABSENT: motor sensory deficit Psychiatric exam: PRESENT: appropriate affect, normal mood. ABSENT: homicidal ideation, suicidal ideation Skin exam: PRESENT: dry, warm Results Laboratory Results: 12/15/19 16:00 12/15/19 16:00 12/13/19 12/13/19 12/13/19 13:53 13:53 18:15 Creatine Kinase 97 CK-MB (CK-2) 1.02 Troponin I < 0.012 0.017 12/14/19 12/14/19 00:24 05:24 Creatine Kinase CK-MB (CK-2) Troponin I 0.020 0.019 Impressions: Head MRI 12/13/19 00:00 IMPRESSION: 1. Acute lacunar infarcts in the right basal ganglia and right frontal and parietal white matter, which may be secondary to embolic phenomenon. 2. Chronic microvascular ischemic disease. Chest X-Ray 12/13/19 13:34 IMPRESSION: NO ACUTE RADIOGRAPHIC FINDING IN THE CHEST. Head CT 12/13/19 13:34 IMPRESSION: CHRONIC CHANGES OF ATROPHY AND MICROVASCULAR ISCHEMIA. NO ACUTE PROCESS. EVIDENCE OF ACUTE STROKE: NO. Carotid Doppler Study 12/14/19 00:00 IMPRESSION: NO HEMODYNAMICALLY SIGNIFICANT STENOSIS. Modified Barium Swallow 12/14/19 00:00 IMPRESSION: NO EVIDENCE OF PENETRATION OR ASPIRATION. PLEASE SEE SPEECH PATHOLOGIST REPORT FOR OTHER FINDINGS AND RECOMMENDATIONS. Assessment & Plan - Diagnosis (1) Right basal ganglia embolic stroke Is this a current diagnosis for this admission?: Yes Plan: Continue Plavix and Ecotrin therapy. Follow up on acute rehabilitation placement. (2) Left-sided weakness Is this a current diagnosis for this admission?: Yes Plan: Continue Plavix and Ecotrin therapy. Follow up on acute rehabilitation placement. (3) Hypertensive urgency Is this a current diagnosis for this admission?: Yes Plan: Maintain on all current medication management. - Time Time Spent with patient: 25-34 minutes Level of Care: IMCU Medications reviewed and adjusted accordingly: Yes Anticipated discharge: Acute Rehab Anticipated DC Timeframe: within 48 hours - Inpatient Certification Based on my medical assessment, after consideration of the patient's comorbidities, presenting symptoms, or acuity I expect that the services needed warrant INPATIENT care.: Yes I certify that my determination is in accordance with my understanding of Medicare's requirements for reasonable and necessary INPATIENT services [42 CFR 412.3e].: Yes Medical Necessity: Significant Comorbidiites Make Outpatient Treatment Too Risky, Need Close Monitoring Due to Risk of Patient Decompensation, Need For Continuous Telemetry Monitoring, Risk of Complication if Not Cared For in Hospital, Risk of Diagnosis Which Will Require Inpatient Eval/Care/Monitoring Post Hospital Care: D/C or Transfer Summary - Plan Summary Plan Summary: Continue current medication management. Follow up on acute rehabilitation [place].
[2019-12-22] MEDS: ATORVASTATIN CALCIUM 80 MG TABLET PO SCH (21:10)
[2019-12-23] MEDS: METOPROLOL SUCCINATE 50 MG TAB.SR.24H PO SCH ×2 (05:26→17:57)
[2019-12-23] MEDS: ACETAMINOPHEN 325 MG TABLET PO PRN (05:28)
[2019-12-23] MEDS: ENOXAPARIN SODIUM INJ 40 MG/0.4 ML DISP.SYRIN SUBCUT SCH (11:01)
[2019-12-23] MEDS: ASPIRIN 81 MG TABLET, ENT COATED PO SCH (11:01)
[2019-12-23] MEDS: AMLODIPINE BESYLATE 10 MG TABLET PO SCH (11:01)
[2019-12-23] MEDS: LOSARTAN POTASSIUM 50 MG TABLET PO SCH (11:01)
[2019-12-23] MEDS: CLOPIDOGREL BISULFATE 75 MG TABLET PO SCH (11:02)
--- NOTE | 2019-12-23 20:06 | PDOC PROGRESS REPORT ---
Subjective Progress Note for:: 12/23/19 Subjective:: Patient denied any chest pain or difficulty with breathing. No abdominal pain, nausea or vomiting. PO intake remain satisfactory. No fever or chills. Reason For Visit: LEFT SIDED WEAKNESS,SLURRED SPEECH,ACUTE LACUNAR Physical Exam Vital Signs: Temp Pulse Resp BP Pulse Ox 98.0 F 70 16 138/64 H 96 12/23/19 16:16 12/23/19 16:16 12/23/19 16:16 12/23/19 16:16 12/23/19 16:16 Intake & Output 12/22/19 12/23/19 12/24/19 06:59 06:59 06:59 Intake Total 420 368 480 Output Total 250 750 350 Balance 170 -382 130 Weight 81.3 kg 80.9 kg Physical Exam: General appearance: PRESENT: no acute distress, obese Eye exam: PRESENT: conjunctiva pink. ABSENT: pallo, sclera icterus Mouth exam: PRESENT: moist Respiratory exam: PRESENT: clear to auscultation joe Cardiovascular exam: PRESENT: RRR. ABSENT: diastolic murmur, rubs, systolic murmur GI/Abdominal exam: PRESENT: normal bowel sounds, soft. ABSENT: distended, guarding, mass, organomegaly, rebound, tenderness Extremities exam: ABSENT: pedal edema Neurological exam: PRESENT: alert, awake, oriented to person, oriented to place, oriented to time, oriented to situation, CN II-XII grossly intact. ABSENT: motor sensory deficit Psychiatric exam: PRESENT: appropriate affect, normal mood. ABSENT: homicidal ideation, suicidal ideation Skin exam: PRESENT: dry, warm Results Laboratory Results: 12/15/19 16:00 12/15/19 16:00 12/13/19 12/13/19 12/13/19 13:53 13:53 18:15 Creatine Kinase 97 CK-MB (CK-2) 1.02 Troponin I < 0.012 0.017 12/14/19 12/14/19 00:24 05:24 Creatine Kinase CK-MB (CK-2) Troponin I 0.020 0.019 Impressions: Head MRI 12/13/19 00:00 IMPRESSION: 1. Acute lacunar infarcts in the right basal ganglia and right frontal and parietal white matter, which may be secondary to embolic phenomenon. 2. Chronic microvascular ischemic disease. Chest X-Ray 12/13/19 13:34 IMPRESSION: NO ACUTE RADIOGRAPHIC FINDING IN THE CHEST. Head CT 12/13/19 13:34 IMPRESSION: CHRONIC CHANGES OF ATROPHY AND MICROVASCULAR ISCHEMIA. NO ACUTE PROCESS. EVIDENCE OF ACUTE STROKE: NO. Carotid Doppler Study 12/14/19 00:00 IMPRESSION: NO HEMODYNAMICALLY SIGNIFICANT STENOSIS. Modified Barium Swallow 12/14/19 00:00 IMPRESSION: NO EVIDENCE OF PENETRATION OR ASPIRATION. PLEASE SEE SPEECH PATHOLOGIST REPORT FOR OTHER FINDINGS AND RECOMMENDATIONS. Assessment & Plan - Diagnosis (1) Right basal ganglia embolic stroke Is this a current diagnosis for this admission?: Yes (2) Left-sided weakness Is this a current diagnosis for this admission?: Yes (3) Hypertensive urgency Is this a current diagnosis for this admission?: Yes - Time Time Spent with patient: 25-34 minutes Level of Care: IMCU Medications reviewed and adjusted accordingly: Yes Anticipated discharge: Acute Rehab Anticipated DC Timeframe: within 48 hours - Inpatient Certification Based on my medical assessment, after consideration of the patient's comorbidities, presenting symptoms, or acuity I expect that the services needed warrant INPATIENT care.: Yes I certify that my determination is in accordance with my understanding of Medicare's requirements for reasonable and necessary INPATIENT services [42 CFR 412.3e].: Yes Medical Necessity: Significant Comorbidiites Make Outpatient Treatment Too Risky, Need Close Monitoring Due to Risk of Patient Decompensation, Need For Continuous Telemetry Monitoring, Risk of Complication if Not Cared For in Hospital, Risk of Diagnosis Which Will Require Inpatient Eval/Care/Monitoring Post Hospital Care: D/C Office Manager Receptionist Documentation - Plan Summary Plan Summary: Continue current medication management. Obtain CBC with diff, BMP in am.
--- NOTE | 2019-12-23 20:26 | EKG REPORT ---
SEVERITY:- ABNORMAL ECG - SINUS RHYTHM LVH WITH SECONDARY REPOLARIZATION ABNORMALITY : Confirmed by: Jordan Nava 23-Dec-2019 20:25:21
[2019-12-23] MEDS: ATORVASTATIN CALCIUM 80 MG TABLET PO SCH (22:30)
[2019-12-24] MEDS: METOPROLOL SUCCINATE 50 MG TAB.SR.24H PO SCH ×2 (05:49→18:07)
[2019-12-24] MEDS: ASPIRIN 81 MG TABLET, ENT COATED PO SCH (09:37)
[2019-12-24] MEDS: AMLODIPINE BESYLATE 10 MG TABLET PO SCH (09:37)
[2019-12-24] MEDS: CLOPIDOGREL BISULFATE 75 MG TABLET PO SCH (09:37)
[2019-12-24] MEDS: LOSARTAN POTASSIUM 50 MG TABLET PO SCH (09:38)
[2019-12-24] MEDS: ENOXAPARIN SODIUM INJ 40 MG/0.4 ML DISP.SYRIN SUBCUT SCH (09:39)
[2019-12-24] MEDS: ATORVASTATIN CALCIUM 80 MG TABLET PO SCH (21:34)
--- NOTE | 2019-12-24 22:30 | PDOC PROGRESS REPORT ---
Subjective Progress Note for:: 12/24/19 Subjective:: Patient seen by the bedside, CVA with left-sided paralysis awaiting transfer to rehabilitation Reason For Visit: LEFT SIDED WEAKNESS,SLURRED SPEECH,ACUTE LACUNAR Physical Exam Vital Signs: Temp Pulse Resp BP Pulse Ox 99.5 F 66 22 H 173/86 H 96 12/24/19 19:34 12/24/19 19:34 12/24/19 19:34 12/24/19 19:34 12/24/19 19:34 Intake & Output 12/23/19 12/24/19 12/25/19 06:59 06:59 06:59 Intake Total 368 580 420 Output Total 750 550 420 Balance -382 30 0 Weight 80.9 kg 82.5 kg General appearance: PRESENT: no acute distress Eye exam: PRESENT: PERRLA Respiratory exam: PRESENT: clear to auscultation joe Cardiovascular exam: PRESENT: +S1, +S2 GI/Abdominal exam: PRESENT: soft Neurological exam: PRESENT: alert, motor sensory deficit Results Laboratory Results: 12/15/19 16:00 12/15/19 16:00 12/13/19 12/13/19 12/13/19 13:53 13:53 18:15 Creatine Kinase 97 CK-MB (CK-2) 1.02 Troponin I < 0.012 0.017 12/14/19 12/14/19 00:24 05:24 Creatine Kinase CK-MB (CK-2) Troponin I 0.020 0.019 Impressions: Head MRI 12/13/19 00:00 IMPRESSION: 1. Acute lacunar infarcts in the right basal ganglia and right frontal and parietal white matter, which may be secondary to embolic phenomenon. 2. Chronic microvascular ischemic disease. Chest X-Ray 12/13/19 13:34 IMPRESSION: NO ACUTE RADIOGRAPHIC FINDING IN THE CHEST. Head CT 12/13/19 13:34 IMPRESSION: CHRONIC CHANGES OF ATROPHY AND MICROVASCULAR ISCHEMIA. NO ACUTE PROCESS. EVIDENCE OF ACUTE STROKE: NO. Carotid Doppler Study 12/14/19 00:00 IMPRESSION: NO HEMODYNAMICALLY SIGNIFICANT STENOSIS. Modified Barium Swallow 12/14/19 00:00 IMPRESSION: NO EVIDENCE OF PENETRATION OR ASPIRATION. PLEASE SEE SPEECH PATHOLOGIST REPORT FOR OTHER FINDINGS AND RECOMMENDATIONS. Assessment & Plan - Diagnosis (1) Right basal ganglia embolic stroke Is this a current diagnosis for this admission?: Yes (2) Hypertensive urgency Is this a current diagnosis for this admission?: Yes - Time Time Spent with patient: 15-24 minutes Level of Care: IMCU Medications reviewed and adjusted accordingly: Yes Anticipated discharge: Acute Rehab Anticipated DC Timeframe: when bed available
[2019-12-25] MEDS: METOPROLOL SUCCINATE 50 MG TAB.SR.24H PO SCH ×2 (05:58→18:38)
[2019-12-25] MEDS: ENOXAPARIN SODIUM INJ 40 MG/0.4 ML DISP.SYRIN SUBCUT SCH (09:25)
[2019-12-25] MEDS: ASPIRIN 81 MG TABLET, ENT COATED PO SCH (09:26)
[2019-12-25] MEDS: LOSARTAN POTASSIUM 50 MG TABLET PO SCH (09:26)
[2019-12-25] MEDS: CLOPIDOGREL BISULFATE 75 MG TABLET PO SCH (09:26)
[2019-12-25] MEDS: AMLODIPINE BESYLATE 10 MG TABLET PO SCH (09:26)
[2019-12-25 17:02] LABS: APPEARANCE,URINE SLIGHTLY-CLOUDY; BILIRUBIN,URINE NEGATIVE (NEGATIVE); COLOR,URINE YELLOW; GLUCOSE, URINE NEGATIVE (NEGATIVE); KETONES,URINE NEGATIVE (NEGATIVE); LEUKOCYTE ESTERASE,URINE NEGATIVE (NEGATIVE); NITRITE,URINE NEGATIVE (NEGATIVE); PROTEIN,URINE 30 mg/dL (NEGATIVE); URINE SPECIFIC GRAVITY 1.017; UROBILINOGEN,URINE NEGATIVE mg/dL (<2.0)
--- NOTE | 2019-12-25 19:29 | PDOC PROGRESS REPORT ---
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 still waiting for [employer] insurance to authorize rehabilitation and physical therapy Reason For Visit: LEFT SIDED WEAKNESS,SLURRED SPEECH,ACUTE LACUNAR Physical Exam Vital Signs: Temp Pulse Resp BP Pulse Ox 97.9 F 66 16 146/77 H 98 12/25/19 17:40 12/25/19 17:40 12/25/19 17:40 12/25/19 17:40 12/25/19 11:59 Intake & Output 12/24/19 12/25/19 12/26/19 06:59 06:59 06:59 Intake Total 580 420 591 Output Total 550 420 Balance 30 0 591 Weight 82.5 kg 82.3 kg General appearance: PRESENT: no acute distress Eye exam: PRESENT: PERRLA Respiratory exam: PRESENT: clear to auscultation joe Cardiovascular exam: PRESENT: +S1, +S2 GI/Abdominal exam: PRESENT: soft Neurological exam: PRESENT: alert Results Laboratory Results: 12/15/19 16:00 12/15/19 16:00 12/25/19 16:25 Urine Color YELLOW Urine Appearance SLIGHTLY-CLOUDY Urine pH 5.0 Ur Specific [place] 1.017 Urine Protein 30 H Urine Glucose (UA) NEGATIVE Urine Ketones NEGATIVE Urine Blood SMALL H Urine Nitrite NEGATIVE Ur Leukocyte Esterase NEGATIVE Urine WBC (Auto) 7 Urine RBC (Auto) 2 12/13/19 12/13/19 12/13/19 13:53 13:53 18:15 Creatine Kinase 97 CK-MB (CK-2) 1.02 Troponin I < 0.012 0.017 12/14/19 12/14/19 00:24 05:24 Creatine Kinase CK-MB (CK-2) Troponin I 0.020 0.019 Impressions: Head MRI 12/13/19 00:00 IMPRESSION: 1. Acute lacunar infarcts in the right basal ganglia and right frontal and parietal white matter, which may be secondary to embolic phenomenon. 2. Chronic microvascular ischemic disease. Chest X-Ray 12/13/19 13:34 IMPRESSION: NO ACUTE RADIOGRAPHIC FINDING IN THE CHEST. Head CT 12/13/19 13:34 IMPRESSION: CHRONIC CHANGES OF ATROPHY AND MICROVASCULAR ISCHEMIA. NO ACUTE PROCESS. EVIDENCE OF ACUTE STROKE: NO. Carotid Doppler Study 12/14/19 00:00 IMPRESSION: NO HEMODYNAMICALLY SIGNIFICANT STENOSIS. Modified Barium Swallow 12/14/19 00:00 IMPRESSION: NO EVIDENCE OF PENETRATION OR ASPIRATION. PLEASE SEE SPEECH PATHOLOGIST REPORT FOR OTHER FINDINGS AND RECOMMENDATIONS. Assessment & Plan - Diagnosis (1) Right basal ganglia embolic stroke Is this a current diagnosis for this admission?: Yes (2) Hypertensive urgency Is this a current diagnosis for this admission?: Yes - Time Time Spent with patient: 25-34 minutes Level of Care: IMCU Medications reviewed and adjusted accordingly: Yes Anticipated discharge: Acute Rehab Anticipated DC Timeframe: when bed available
[2019-12-25 21:11] LABS: ABSOLUTE EOSINOPHILS # (AUTO) 0.1 10^3/uL (0.0-0.6); ABSOLUTE LYMPHOCYTES (AUTO) 1.3 10^3/uL (0.5-4.7); ABSOLUTE MONOCYTES (AUTO) 0.5 10^3/uL (0.1-1.4); ABSOLUTE NEUT (AUTO) 3.8 10^3/uL (1.7-8.2); BASOPHILS % (AUTO) 0.5 % (0-2); EOSINOPHILS % (AUTO) 1.1 % (0-6); HEMATOCRIT 43.6 % (36.0-47.0); HEMOGLOBIN 14.6 g/dL (12.0-15.5); LYMPHOCYTES % (AUTO) 22.8 % (13-45); MEAN CORPUSCULAR HEMOGLOBIN 31.4 pg (27.0-33.4); MEAN CORPUSCULAR HGB CONC 33.6 g/dL (32.0-36.0); MEAN CORPUSCULAR VOLUME 94 fl (80-97); MONOCYTES % (AUTO) 9.3 % (3-13); PLATELET COUNT 176 10^3/uL (150-450); RED BLOOD COUNT 4.66 10^6/uL (3.72-5.28); RED CELL DISTRIBUTION WIDTH 15.1 % (11.5-14.0); SEGMENTED NEUTROPHILS % (AUTO) 66.3 % (42-78); TOTAL CELLS COUNTED % (AUTO) 100 %; WHITE BLOOD COUNT 5.7 10^3/uL (4.0-10.5)
[2019-12-25 21:34] LABS: ALBUMIN 4.5 g/dL (3.5-5.0); ALKALINE PHOSPHATASE 130 U/L (38-126); ANION GAP 8 (5-19); ASPARTATE AMINO TRANSFERASE 42 U/L (14-36); BILIRUBIN,DIRECT 0.3 mg/dL (0.0-0.4); BILIRUBIN,TOTAL 0.6 mg/dL (0.2-1.3); BLOOD UREA NITROGEN 29 mg/dL (7-20); CALCIUM 9.5 mg/dL (8.4-10.2); CARBON DIOXIDE 26 mmol/L (22-30); CHLORIDE 107 mmol/L (98-107); GLUCOSE 115 mg/dL (75-110); POTASSIUM 4.2 mmol/L (3.6-5.0); TOTAL PROTEIN 8.5 g/dL (6.3-8.2)
[2019-12-25] MEDS: ATORVASTATIN CALCIUM 80 MG TABLET PO SCH (23:36)
[2019-12-26 04:23] LABS: ABSOLUTE LYMPHOCYTES (AUTO) 1.3 10^3/uL (0.5-4.7); ABSOLUTE MONOCYTES (AUTO) 0.6 10^3/uL (0.1-1.4); ABSOLUTE NEUT (AUTO) 3.3 10^3/uL (1.7-8.2); BASOPHILS % (AUTO) 0.5 % (0-2); EOSINOPHILS % (AUTO) 0.9 % (0-6); HEMATOCRIT 40.9 % (36.0-47.0); HEMOGLOBIN 13.7 g/dL (12.0-15.5); LYMPHOCYTES % (AUTO) 24.7 % (13-45); MEAN CORPUSCULAR HEMOGLOBIN 31.4 pg (27.0-33.4); MEAN CORPUSCULAR HGB CONC 33.5 g/dL (32.0-36.0); MEAN CORPUSCULAR VOLUME 94 fl (80-97); MONOCYTES % (AUTO) 11.7 % (3-13); PLATELET COUNT 167 10^3/uL (150-450); RED BLOOD COUNT 4.36 10^6/uL (3.72-5.28); RED CELL DISTRIBUTION WIDTH 14.9 % (11.5-14.0); SEGMENTED NEUTROPHILS % (AUTO) 62.2 % (42-78); TOTAL CELLS COUNTED % (AUTO) 100 %; WHITE BLOOD COUNT 5.3 10^3/uL (4.0-10.5)
[2019-12-26 04:38] LABS: ALKALINE PHOSPHATASE 122 U/L (38-126); ANION GAP 8 (5-19); ASPARTATE AMINO TRANSFERASE 37 U/L (14-36); BILIRUBIN,DIRECT 0.2 mg/dL (0.0-0.4); BILIRUBIN,TOTAL 0.9 mg/dL (0.2-1.3); BLOOD UREA NITROGEN 29 mg/dL (7-20); CARBON DIOXIDE 22 mmol/L (22-30); CHLORIDE 111 mmol/L (98-107); GLUCOSE 110 mg/dL (75-110); POTASSIUM 4.1 mmol/L (3.6-5.0); TOTAL PROTEIN 7.4 g/dL (6.3-8.2)
[2019-12-26] MEDS: METOPROLOL SUCCINATE 50 MG TAB.SR.24H PO SCH ×2 (06:32→17:34)
[2019-12-26] MEDS: CLOPIDOGREL BISULFATE 75 MG TABLET PO SCH (11:14)
[2019-12-26] MEDS: ASPIRIN 81 MG TABLET, ENT COATED PO SCH (11:14)
[2019-12-26] MEDS: LOSARTAN POTASSIUM 50 MG TABLET PO SCH (11:14)
[2019-12-26] MEDS: AMLODIPINE BESYLATE 10 MG TABLET PO SCH (11:15)
[2019-12-26] MEDS: ENOXAPARIN SODIUM INJ 40 MG/0.4 ML DISP.SYRIN SUBCUT SCH (11:15)
--- NOTE | 2019-12-26 16:05 | PDOC PROGRESS REPORT ---
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 Andres Parsons she said it would take about 7 days for [employer] to authorize the therapy for this patient Reason For Visit: LEFT SIDED WEAKNESS,SLURRED SPEECH,ACUTE LACUNAR Physical Exam Vital Signs: Temp Pulse Resp BP Pulse Ox 98.4 F 86 15 144/83 H 100 12/26/19 10:00 12/26/19 14:00 12/26/19 08:12 12/26/19 08:12 12/26/19 08:12 Intake & Output 12/25/19 12/26/19 12/27/19 06:59 06:59 06:59 Intake Total 420 591 Output Total 420 200 Balance 0 391 Weight 82.3 kg 81.3 kg General appearance: PRESENT: no acute distress Eye exam: PRESENT: PERRLA Respiratory exam: PRESENT: clear to auscultation joe Cardiovascular exam: PRESENT: +S1, +S2 Neurological exam: PRESENT: alert, motor sensory deficit Results Laboratory Results: 12/26/19 04:10 12/26/19 04:10 12/25/19 12/25/19 12/25/19 16:25 21:03 21:03 WBC 5.7 RBC 4.66 Hgb 14.6 Hct 43.6 MCV 94 MCH 31.4 MCHC 33.6 RDW 15.1 H Plt Count 176 Seg Neutrophils % 66.3 Sodium 140.8 Potassium 4.2 Chloride 107 Carbon Dioxide 26 Anion Gap 8 BUN 29 H Creatinine 1.21 Est GFR ( Amer) 55 L Glucose 115 H Calcium 9.5 Total Bilirubin 0.6 AST 42 H Alkaline Phosphatase 130 H Total Protein 8.5 H Albumin 4.5 Urine Color YELLOW Urine Appearance SLIGHTLY-CLOUDY Urine pH 5.0 Ur Specific [place] 1.017 Urine Protein 30 H Urine Glucose (UA) NEGATIVE Urine Ketones NEGATIVE Urine Blood SMALL H Urine Nitrite NEGATIVE Ur Leukocyte Esterase NEGATIVE Urine WBC (Auto) 7 Urine RBC (Auto) 2 12/26/19 12/26/19 04:10 04:10 WBC 5.3 RBC 4.36 Hgb 13.7 Hct 40.9 MCV 94 MCH 31.4 MCHC 33.5 RDW 14.9 H Plt Count 167 Seg Neutrophils % 62.2 Sodium 140.9 Potassium 4.1 Chloride 111 H Carbon Dioxide 22 Anion Gap 8 BUN 29 H Creatinine 1.10 Est GFR ( Amer) > 60 Glucose 110 Calcium 9.0 Total Bilirubin 0.9 AST 37 H Alkaline Phosphatase 122 Total Protein 7.4 Albumin 4.0 Urine Color Urine Appearance Urine pH Ur Specific [place] Urine Protein Urine Glucose (UA) Urine Ketones Urine Blood Urine Nitrite Ur Leukocyte Esterase Urine WBC (Auto) Urine RBC (Auto) 12/13/19 12/13/19 12/13/19 13:53 13:53 18:15 Creatine Kinase 97 CK-MB (CK-2) 1.02 Troponin I < 0.012 0.017 12/14/19 12/14/19 00:24 05:24 Creatine Kinase CK-MB (CK-2) Troponin I 0.020 0.019 Impressions: Head MRI 12/13/19 00:00 IMPRESSION: 1. Acute lacunar infarcts in the right basal ganglia and right frontal and parietal white matter, which may be secondary to embolic phenomenon. 2. Chronic microvascular ischemic disease. Chest X-Ray 12/13/19 13:34 IMPRESSION: NO ACUTE RADIOGRAPHIC FINDING IN THE CHEST. Head CT 12/13/19 13:34 IMPRESSION: CHRONIC CHANGES OF ATROPHY AND MICROVASCULAR ISCHEMIA. NO ACUTE PROCESS. EVIDENCE OF ACUTE STROKE: NO. Carotid Doppler Study 12/14/19 00:00 IMPRESSION: NO HEMODYNAMICALLY SIGNIFICANT STENOSIS. Modified Barium Swallow 12/14/19 00:00 IMPRESSION: NO EVIDENCE OF PENETRATION OR ASPIRATION. PLEASE SEE SPEECH PATHOLOGIST REPORT FOR OTHER FINDINGS AND RECOMMENDATIONS. Assessment & Plan - Diagnosis (1) Right basal ganglia embolic stroke Is this a current diagnosis for this admission?: Yes Plan: Continue in-house PT, Continue present anti-ischemic drug (2) Hypertensive urgency Is this a current diagnosis for this admission?: Yes - Time Time Spent with patient: 25-34 minutes Level of Care: IMCU Anticipated discharge: Acute Rehab Anticipated DC Timeframe: when bed available
[2019-12-26] MEDS: ATORVASTATIN CALCIUM 80 MG TABLET PO SCH (22:59)
[2019-12-27] MEDS: METOPROLOL SUCCINATE 50 MG TAB.SR.24H PO SCH (06:06)
[2019-12-27 11:16] LABS: ABSOLUTE EOSINOPHILS # (AUTO) 0.1 10^3/uL (0.0-0.6); ABSOLUTE LYMPHOCYTES (AUTO) 1.2 10^3/uL (0.5-4.7); ABSOLUTE MONOCYTES (AUTO) 0.5 10^3/uL (0.1-1.4); ABSOLUTE NEUT (AUTO) 3.9 10^3/uL (1.7-8.2); BASOPHILS % (AUTO) 0.6 % (0-2); HEMATOCRIT 41.8 % (36.0-47.0); HEMOGLOBIN 14.3 g/dL (12.0-15.5); LYMPHOCYTES % (AUTO) 20.8 % (13-45); MEAN CORPUSCULAR HEMOGLOBIN 31.9 pg (27.0-33.4); MEAN CORPUSCULAR HGB CONC 34.2 g/dL (32.0-36.0); MEAN CORPUSCULAR VOLUME 93 fl (80-97); MONOCYTES % (AUTO) 9.6 % (3-13); PLATELET COUNT 175 10^3/uL (150-450); RED BLOOD COUNT 4.48 10^6/uL (3.72-5.28); RED CELL DISTRIBUTION WIDTH 14.9 % (11.5-14.0); TOTAL CELLS COUNTED % (AUTO) 100 %; WHITE BLOOD COUNT 5.7 10^3/uL (4.0-10.5)
[2019-12-27 11:41] LABS: ANION GAP 11 (5-19); BLOOD UREA NITROGEN 31 mg/dL (7-20); CALCIUM 9.4 mg/dL (8.4-10.2); CARBON DIOXIDE 23 mmol/L (22-30); CHLORIDE 108 mmol/L (98-107); GLUCOSE 111 mg/dL (75-110); POTASSIUM 4.6 mmol/L (3.6-5.0)
[2019-12-27] MEDS: LOSARTAN POTASSIUM 50 MG TABLET PO SCH (12:23)
[2019-12-27] MEDS: CLOPIDOGREL BISULFATE 75 MG TABLET PO SCH (12:24)
[2019-12-27] MEDS: AMLODIPINE BESYLATE 10 MG TABLET PO SCH (12:24)
[2019-12-27] MEDS: ENOXAPARIN SODIUM INJ 40 MG/0.4 ML DISP.SYRIN SUBCUT SCH (12:24)
[2019-12-27] MEDS: ASPIRIN 81 MG TABLET, ENT COATED PO SCH (12:25)
--- NOTE | 2019-12-27 19:15 | PDOC PROGRESS REPORT ---
Subjective Progress Note for:: 12/27/19 Subjective:: Patient seen by the bedside awaiting authorization from [employer] Reason For Visit: LEFT SIDED WEAKNESS,SLURRED SPEECH,ACUTE LACUNAR Physical Exam Vital Signs: Temp Pulse Resp BP Pulse Ox 99.2 F 76 15 122/84 100 12/27/19 15:47 12/27/19 15:47 12/27/19 15:47 12/27/19 15:47 12/27/19 15:47 Intake & Output 12/26/19 12/27/19 12/28/19 06:59 06:59 06:59 Intake Total 591 240 Output Total 200 Balance 391 240 Weight 81.3 kg 79.7 kg General appearance: PRESENT: no acute distress Eye exam: PRESENT: PERRLA Respiratory exam: PRESENT: clear to auscultation joe Cardiovascular exam: PRESENT: +S1, +S2 GI/Abdominal exam: PRESENT: soft Neurological exam: PRESENT: alert, motor sensory deficit Results Laboratory Results: 12/27/19 11:04 12/27/19 11:04 12/27/19 12/27/19 11:04 11:04 WBC 5.7 RBC 4.48 Hgb 14.3 Hct 41.8 MCV 93 MCH 31.9 MCHC 34.2 RDW 14.9 H Plt Count 175 Seg Neutrophils % 68.0 Sodium 142.1 Potassium 4.6 Chloride 108 H Carbon Dioxide 23 Anion Gap 11 BUN 31 H Creatinine 1.02 Est GFR ( Amer) > 60 Glucose 111 H Calcium 9.4 12/13/19 12/13/19 12/13/19 13:53 13:53 18:15 Creatine Kinase 97 CK-MB (CK-2) 1.02 Troponin I < 0.012 0.017 12/14/19 12/14/19 00:24 05:24 Creatine Kinase CK-MB (CK-2) Troponin I 0.020 0.019 Impressions: Head MRI 12/13/19 00:00 IMPRESSION: 1. Acute lacunar infarcts in the right basal ganglia and right frontal and parietal white matter, which may be secondary to embolic phenomenon. 2. Chronic microvascular ischemic disease. Chest X-Ray 12/13/19 13:34 IMPRESSION: NO ACUTE RADIOGRAPHIC FINDING IN THE CHEST. Head CT 12/13/19 13:34 IMPRESSION: CHRONIC CHANGES OF ATROPHY AND MICROVASCULAR ISCHEMIA. NO ACUTE PROCESS. EVIDENCE OF ACUTE STROKE: NO. Carotid Doppler Study 12/14/19 00:00 IMPRESSION: NO HEMODYNAMICALLY SIGNIFICANT STENOSIS. Modified Barium Swallow 12/14/19 00:00 IMPRESSION: NO EVIDENCE OF PENETRATION OR ASPIRATION. PLEASE SEE SPEECH PATHOLOGIST REPORT FOR OTHER FINDINGS AND RECOMMENDATIONS. Assessment & Plan - Diagnosis (1) Right basal ganglia embolic stroke Is this a current diagnosis for this admission?: Yes Plan: Continue in-house PT, Continue present anti-ischemic drug (2) Hypertensive urgency Is this a current diagnosis for this admission?: Yes - Time Time Spent with patient: 25-34 minutes Level of Care: IMCU Anticipated discharge: Acute Rehab Anticipated DC Timeframe: when bed available
[2019-12-27] MEDS: ATORVASTATIN CALCIUM 80 MG TABLET PO SCH (21:56)
[2019-12-28] MEDS: ASPIRIN 81 MG TABLET, ENT COATED PO SCH (11:48)
[2019-12-28] MEDS: CLOPIDOGREL BISULFATE 75 MG TABLET PO SCH (11:49)
[2019-12-28] MEDS: LOSARTAN POTASSIUM 50 MG TABLET PO SCH (11:49)
[2019-12-28] MEDS: METOPROLOL SUCCINATE 50 MG TAB.SR.24H PO SCH ×2 (11:50→15:34)
[2019-12-28] MEDS: AMLODIPINE BESYLATE 10 MG TABLET PO SCH (11:50)
[2019-12-28] MEDS: ENOXAPARIN SODIUM INJ 40 MG/0.4 ML DISP.SYRIN SUBCUT SCH (11:51)
--- NOTE | 2019-12-28 20:59 | PDOC PROGRESS REPORT ---
Subjective Progress Note for:: 12/28/19 Subjective:: Patient seen by the bedside , awaiting authorization from [employer] Reason For Visit: LEFT SIDED WEAKNESS,SLURRED SPEECH,ACUTE LACUNAR Physical Exam Vital Signs: Temp Pulse Resp BP Pulse Ox 99.6 F 87 20 145/88 H 100 12/28/19 19:48 12/28/19 19:48 12/28/19 19:48 12/28/19 19:48 12/28/19 19:48 Intake & Output 12/27/19 12/28/19 12/29/19 06:59 06:59 06:59 Intake Total 240 910 Output Total 0 200 Balance 240 710 Weight 79.7 kg 80.4 kg 80.4 kg General appearance: PRESENT: no acute distress Eye exam: PRESENT: PERRLA Respiratory exam: PRESENT: clear to auscultation joe Cardiovascular exam: PRESENT: +S1, +S2 GI/Abdominal exam: PRESENT: soft Neurological exam: PRESENT: alert Results Laboratory Results: 12/27/19 11:04 12/27/19 11:04 12/13/19 12/13/19 12/13/19 13:53 13:53 18:15 Creatine Kinase 97 CK-MB (CK-2) 1.02 Troponin I < 0.012 0.017 12/14/19 12/14/19 00:24 05:24 Creatine Kinase CK-MB (CK-2) Troponin I 0.020 0.019 Impressions: Head MRI 12/13/19 00:00 IMPRESSION: 1. Acute lacunar infarcts in the right basal ganglia and right frontal and parietal white matter, which may be secondary to embolic phenomenon. 2. Chronic microvascular ischemic disease. Chest X-Ray 12/13/19 13:34 IMPRESSION: NO ACUTE RADIOGRAPHIC FINDING IN THE CHEST. Head CT 12/13/19 13:34 IMPRESSION: CHRONIC CHANGES OF ATROPHY AND MICROVASCULAR ISCHEMIA. NO ACUTE PROCESS. EVIDENCE OF ACUTE STROKE: NO. Carotid Doppler Study 12/14/19 00:00 IMPRESSION: NO HEMODYNAMICALLY SIGNIFICANT STENOSIS. Modified Barium Swallow 12/14/19 00:00 IMPRESSION: NO EVIDENCE OF PENETRATION OR ASPIRATION. PLEASE SEE SPEECH PATHOLOGIST REPORT FOR OTHER FINDINGS AND RECOMMENDATIONS. Assessment & Plan - Diagnosis (1) Right basal ganglia embolic stroke Is this a current diagnosis for this admission?: Yes (2) Hypertensive urgency Is this a current diagnosis for this admission?: Yes - Time Time Spent with patient: 25-34 minutes Level of Care: IMCU Medications reviewed and adjusted accordingly: Yes Anticipated discharge: Acute Rehab Anticipated DC Timeframe: within 72 hours
[2019-12-28] MEDS: ATORVASTATIN CALCIUM 80 MG TABLET PO SCH (21:20)
[2019-12-29] MEDS: METOPROLOL SUCCINATE 50 MG TAB.SR.24H PO SCH ×3 (05:11→17:36)
[2019-12-29] MEDS: ENOXAPARIN SODIUM INJ 40 MG/0.4 ML DISP.SYRIN SUBCUT SCH (10:09)
[2019-12-29] MEDS: CLOPIDOGREL BISULFATE 75 MG TABLET PO SCH (10:09)
[2019-12-29] MEDS: LOSARTAN POTASSIUM 50 MG TABLET PO SCH (10:09)
[2019-12-29] MEDS: AMLODIPINE BESYLATE 10 MG TABLET PO SCH (10:09)
[2019-12-29] MEDS: ASPIRIN 81 MG TABLET, ENT COATED PO SCH (10:09)
--- NOTE | 2019-12-29 13:13 | PDOC PROGRESS REPORT ---
Subjective Progress Note for:: 12/29/19 Subjective:: Patient seen by the bedside , awaiting authorization from [employer] Reason For Visit: LEFT SIDED WEAKNESS,SLURRED SPEECH,ACUTE LACUNAR Physical Exam Vital Signs: Temp Pulse Resp BP Pulse Ox 97.7 F 78 16 137/95 H 100 12/29/19 07:44 12/29/19 07:44 12/29/19 07:44 12/29/19 07:44 12/29/19 03:10 Intake & Output 12/28/19 12/29/19 12/30/19 06:59 06:59 06:59 Intake Total 240 1260 Output Total 0 600 Balance 240 660 Weight 80.4 kg 80 kg General appearance: PRESENT: no acute distress Respiratory exam: PRESENT: clear to auscultation joe Cardiovascular exam: PRESENT: +S1, +S2 GI/Abdominal exam: PRESENT: soft Results Laboratory Results: 12/27/19 11:04 12/27/19 11:04 12/25/19 16:25 Clean Catch Midstream Urine Culture - Final Proteus Mirabilis Enterococcus Faecalis(Group D) 12/13/19 12/13/19 12/13/19 13:53 13:53 18:15 Creatine Kinase 97 CK-MB (CK-2) 1.02 Troponin I < 0.012 0.017 12/14/19 12/14/19 00:24 05:24 Creatine Kinase CK-MB (CK-2) Troponin I 0.020 0.019 Impressions: Head MRI 12/13/19 00:00 IMPRESSION: 1. Acute lacunar infarcts in the right basal ganglia and right frontal and parietal white matter, which may be secondary to embolic phenomenon. 2. Chronic microvascular ischemic disease. Chest X-Ray 12/13/19 13:34 IMPRESSION: NO ACUTE RADIOGRAPHIC FINDING IN THE CHEST. Head CT 12/13/19 13:34 IMPRESSION: CHRONIC CHANGES OF ATROPHY AND MICROVASCULAR ISCHEMIA. NO ACUTE PROCESS. EVIDENCE OF ACUTE STROKE: NO. Carotid Doppler Study 12/14/19 00:00 IMPRESSION: NO HEMODYNAMICALLY SIGNIFICANT STENOSIS. Modified Barium Swallow 12/14/19 00:00 IMPRESSION: NO EVIDENCE OF PENETRATION OR ASPIRATION. PLEASE SEE SPEECH PATHOLOGIST REPORT FOR OTHER FINDINGS AND RECOMMENDATIONS. Assessment & Plan - Diagnosis (1) Right basal ganglia embolic stroke Is this a current diagnosis for this admission?: Yes (2) Hypertensive urgency Is this a current diagnosis for this admission?: Yes - Time Time Spent with patient: Less than 15 minutes Level of Care: IMCU Anticipated discharge: Acute Rehab Anticipated DC Timeframe: when bed available
[2019-12-29] MEDS: ATORVASTATIN CALCIUM 80 MG TABLET PO SCH (21:45)
[2019-12-30] MEDS: METOPROLOL SUCCINATE 50 MG TAB.SR.24H PO SCH ×2 (06:26→17:44)
[2019-12-30] MEDS: ASPIRIN 81 MG TABLET, ENT COATED PO SCH (09:51)
[2019-12-30] MEDS: LOSARTAN POTASSIUM 50 MG TABLET PO SCH (09:51)
[2019-12-30] MEDS: CLOPIDOGREL BISULFATE 75 MG TABLET PO SCH (09:51)
[2019-12-30] MEDS: AMLODIPINE BESYLATE 10 MG TABLET PO SCH (09:52)
[2019-12-30] MEDS: ENOXAPARIN SODIUM INJ 40 MG/0.4 ML DISP.SYRIN SUBCUT SCH (09:52)
--- NOTE | 2019-12-30 15:43 | PDOC PROGRESS REPORT ---
Subjective Progress Note for:: 12/30/19 Subjective:: Patient seen by the bedside , awaiting authorization from [employer] Reason For Visit: LEFT SIDED WEAKNESS,SLURRED SPEECH,ACUTE LACUNAR Physical Exam Vital Signs: Temp Pulse Resp BP Pulse Ox 98.0 F 61 16 148/94 H 100 12/30/19 11:06 12/30/19 14:00 12/30/19 11:06 12/30/19 11:06 12/30/19 11:06 Intake & Output 12/29/19 12/30/19 12/31/19 06:59 06:59 06:59 Intake Total 1260 270 Output Total 600 Balance 660 270 Weight 80 kg 78.9 kg 78.9 kg General appearance: PRESENT: no acute distress Eye exam: PRESENT: PERRLA Respiratory exam: PRESENT: clear to auscultation joe Cardiovascular exam: PRESENT: +S1, +S2 Neurological exam: PRESENT: alert Results Laboratory Results: 12/27/19 11:04 12/27/19 11:04 12/13/19 12/13/19 12/13/19 13:53 13:53 18:15 Creatine Kinase 97 CK-MB (CK-2) 1.02 Troponin I < 0.012 0.017 12/14/19 12/14/19 00:24 05:24 Creatine Kinase CK-MB (CK-2) Troponin I 0.020 0.019 Impressions: Head MRI 12/13/19 00:00 IMPRESSION: 1. Acute lacunar infarcts in the right basal ganglia and right frontal and parietal white matter, which may be secondary to embolic phenomenon. 2. Chronic microvascular ischemic disease. Chest X-Ray 12/13/19 13:34 IMPRESSION: NO ACUTE RADIOGRAPHIC FINDING IN THE CHEST. Head CT 12/13/19 13:34 IMPRESSION: CHRONIC CHANGES OF ATROPHY AND MICROVASCULAR ISCHEMIA. NO ACUTE PROCESS. EVIDENCE OF ACUTE STROKE: NO. Carotid Doppler Study 12/14/19 00:00 IMPRESSION: NO HEMODYNAMICALLY SIGNIFICANT STENOSIS. Modified Barium Swallow 12/14/19 00:00 IMPRESSION: NO EVIDENCE OF PENETRATION OR ASPIRATION. PLEASE SEE SPEECH PATHO LOGIST REPORT FOR OTHER FINDINGS AND RECOMMENDATIONS. Assessment & Plan - Diagnosis (1) Right basal ganglia embolic stroke Is this a current diagnosis for this admission?: Yes (2) Hypertensive urgency Is this a current diagnosis for this admission?: Yes - Time Time Spent with patient: 15-24 minutes Level of Care: IMCU Medications reviewed and adjusted accordingly: Yes Anticipated discharge: Home
[2019-12-30] MEDS: ATORVASTATIN CALCIUM 80 MG TABLET PO SCH (21:27)
[2019-12-31] MEDS: METOPROLOL SUCCINATE 50 MG TAB.SR.24H PO SCH ×2 (05:14→17:48)
[2019-12-31] MEDS: CLOPIDOGREL BISULFATE 75 MG TABLET PO SCH (09:20)
[2019-12-31] MEDS: AMLODIPINE BESYLATE 10 MG TABLET PO SCH (09:20)
[2019-12-31] MEDS: ASPIRIN 81 MG TABLET, ENT COATED PO SCH (09:21)
[2019-12-31] MEDS: ENOXAPARIN SODIUM INJ 40 MG/0.4 ML DISP.SYRIN SUBCUT SCH (09:22)
[2019-12-31] MEDS: LOSARTAN POTASSIUM 50 MG TABLET PO SCH (09:23)
[2019-12-31] MEDS: ACETAMINOPHEN 325 MG TABLET PO PRN (09:36)
--- NOTE | 2019-12-31 18:43 | PDOC TRANSFER SUMMARY ---
General Admission Date/PCP: 12/13/19 15:24 MARC MCCULLOUGH MD Admission Date: 12/13/19 Transfer Date: 01/01/20 Accepting Facility: [facility] [place] Diagnosis (1) Right basal ganglia embolic stroke Is this a current diagnosis for this admission?: Yes (2) Hypertensive urgency Is this a current diagnosis for this admission?: Yes - Transfer Medications Transfer Medications: Current Medications Acetaminophen (Tylenol 325 Mg Tablet) 650 mg PO Q4HP PRN PRN Reason: PAIN Stop: 01/13/20 00:03 Last Admin: 12/31/19 09:36 Dose: 650 mg Documented by: Amlodipine Besylate (Norvasc 10 Mg Tablet) 10 mg PO DAILY ALL Stop: 01/17/20 19:59 Last Admin: 12/31/19 09:20 Dose: 10 mg Documented by: Aspirin (Ecotrin 81 Mg Ec Tablet) 162 mg PO DAILY ALL Stop: 01/12/20 17:59 Last Admin: 12/31/19 09:21 Dose: 162 mg Documented by: Atorvastatin Calcium (Lipitor 80 Mg Tablet) 80 mg PO QHS ALL Stop: 01/12/20 21:59 Last Admin: 12/30/19 21:27 Dose: 80 mg Documented by: Clopidogrel Bisulfate (Plavix 75 Mg Tablet) 75 mg PO DAILY ALL Stop: 01/12/20 18:29 Last Admin: 12/31/19 09:20 Dose: 75 mg Documented by: Dextrose (Dextrose Inj 50% Syringe (25 Gm/50 Ml)) 12.5 gm IV PRN PRN; Protocol PRN Reason: FOR BG 50-69 IN ALERT PATIENT Stop: 01/12/20 22:29 Dextrose (Dextrose Inj 50% Syringe (25 Gm/50 Ml)) 25 gm IV PRN PRN; Protocol PRN Reason: See Label Comments Stop: 01/12/20 22:29 Enoxaparin Sodium (Lovenox Inj 40 Mg/0.4 Ml Disp.Syrin) 40 mg SUBCUT DAILY ALL Stop: 01/12/20 18:29 Last Admin: 12/31/19 09:22 Dose: 40 mg Documented by: Glucagon (Glucagen Inj 1 Mg Vial) 1 mg SUBCUT PRN PRN; Protocol PRN Reason: Evaluate for BG < 70 Stop: 01/12/20 22:29 Glucose (Glutose 40% Gel 15 Gm Tube) 15 gm PO PRN PRN; Protocol PRN Reason: For BG 50-69 in Alert Patient Stop: 01/12/20 22:29 Glucose (Glutose 40% Gel 15 Gm Tube) 30 gm PO PRN PRN; Protocol PRN Reason: FOR BG < 50 IN ALERT PATIENT Stop: 01/12/20 22:29 Labetalol HCl (Normodyne Inj 20 Mg/4 Ml Syringe) 20 mg IV Q4HP PRN PRN Reason: Give For Sbp > [220] Stop: 01/12/20 22:28 Losartan Potassium (Cozaar 50 Mg Tablet) 100 mg PO DAILY ALL Stop: 01/14/20 12:29 Last Admin: 12/31/19 09:23 Dose: 100 mg Documented by: Metoprolol Succinate (Toprol Xl 50 Mg Tab.Sr) 50 mg PO Q12A [facility] Stop: 01/15/20 17:59 Last Admin: 12/31/19 17:48 Dose: 50 mg Documented by: - Allergies Allergies/Adverse Reactions: aspirin [Aspirin] Adverse Reaction (Verified 10/25/18 11:10) Hospital Course Hospital Course: Patient 64-year-old female extremely noncompliant, she has not followed up in the office for over a year, she stopped taking her medications for the control blood pressure. She called the office for evaluation of weakness and slurred speech, she was advised to go to the emergency room for evaluation the initial CAT scan of the head that was done was negative, she was not a candidate for thrombolytic management because she was out of the 3-hour window. Since onset of symptoms. Subsequently MRI brain was done, it demonstrated multiple foci of restricted diffusion within the right basal ganglia, right periventricular and subcortical white matter in the right frontal and parietal lobes there was no intracranial hemorrhage she was admitted and treated according to the stroke protocol. She was treated with statin therapy, losartan, antiplatelet initially when she was admitted she was treated with dual antiplatelet Plavix and aspirin because it was initially thought she has TIA but after the MRI confirmed a stroke that was more than a small stroke the antiplatelet was changed to Aggrenox.Physical therapy was ordered, she was seen, acute rehab recommended but could not get authorization from insurance until today Physical Exam Vital Signs: Temp Pulse Resp BP Pulse Ox 98.0 F 80 16 135/93 H 100 12/31/19 15:25 12/31/19 15:25 12/31/19 15:25 12/31/19 15:25 12/31/19 15:25 Intake & Output 12/30/19 12/31/19 01/01/20 06:59 06:59 06:59 Intake Total 270 150 100 Output Total 300 Balance 270 150 -200 Weight 78.9 kg 78.8 kg General appearance: PRESENT: no acute distress Eye exam: PRESENT: PERRLA Respiratory exam: PRESENT: clear to auscultation joe Cardiovascular exam: PRESENT: +S1, +S2 GI/Abdominal exam: PRESENT: soft Neurological exam: PRESENT: alert Results Laboratory Results: 12/27/19 11:04 12/27/19 11:04 12/13/19 12/13/19 12/13/19 13:53 13:53 18:15 Creatine Kinase 97 CK-MB (CK-2) 1.02 Troponin I < 0.012 0.017 12/14/19 12/14/19 00:24 05:24 Creatine Kinase CK-MB (CK-2) Troponin I 0.020 0.019 Impressions: Head MRI 12/13/19 00:00 IMPRESSION: 1. Acute lacunar infarcts in the right basal ganglia and right frontal and parietal white matter, which may be secondary to embolic phenomenon. 2. Chronic microvascular ischemic disease. Chest X-Ray 12/13/19 13:34 IMPRESSION: NO ACUTE RADIOGRAPHIC FINDING IN THE CHEST. Head CT 12/13/19 13:34 IMPRESSION: CHRONIC CHANGES OF ATROPHY AND MICROVASCULAR ISCHEMIA. NO ACUTE PROCESS. EVIDENCE OF ACUTE STROKE: NO. Carotid Doppler Study 12/14/19 00:00 IMPRESSION: NO HEMODYNAMICALLY SIGNIFICANT STENOSIS. Modified Barium Swallow 12/14/19 00:00 IMPRESSION: NO EVIDENCE OF PENETRATION OR ASPIRATION. PLEASE SEE SPEECH PATHOLOGIST REPORT FOR OTHER FINDINGS AND RECOMMENDATIONS.
--- NOTE | 2019-12-31 18:48 | PDOC PROGRESS REPORT ---
Subjective Progress Note for:: 12/31/19 Subjective:: Patient seen by the bedside, She will be transferred tomorrow to rehab Reason For Visit: LEFT SIDED WEAKNESS,SLURRED SPEECH,ACUTE LACUNAR Physical Exam Vital Signs: Temp Pulse Resp BP Pulse Ox 98.0 F 80 16 135/93 H 100 12/31/19 15:25 12/31/19 15:25 12/31/19 15:25 12/31/19 15:25 12/31/19 15:25 Intake & Output 12/30/19 12/31/19 01/01/20 06:59 06:59 06:59 Intake Total 270 150 100 Output Total 300 Balance 270 150 -200 Weight 78.9 kg 78.8 kg General appearance: PRESENT: no acute distress Eye exam: PRESENT: PERRLA Respiratory exam: PRESENT: clear to auscultation joe Cardiovascular exam: PRESENT: +S1, +S2 Neurological exam: PRESENT: alert Results Laboratory Results: 12/27/19 11:04 12/27/19 11:04 12/13/19 12/13/19 12/13/19 13:53 13:53 18:15 Creatine Kinase 97 CK-MB (CK-2) 1.02 Troponin I < 0.012 0.017 12/14/19 12/14/19 00:24 05:24 Creatine Kinase CK-MB (CK-2) Troponin I 0.020 0.019 Impressions: Head MRI 12/13/19 00:00 IMPRESSION: 1. Acute lacunar infarcts in the right basal ganglia and right frontal and parietal white matter, which may be secondary to embolic phenomenon. 2. Chronic microvascular ischemic disease. Chest X-Ray 12/13/19 13:34 IMPRESSION: NO ACUTE RADIOGRAPHIC FINDING IN THE CHEST. Head CT 12/13/19 13:34 IMPRESSION: CHRONIC CHANGES OF ATROPHY AND MICROVASCULAR ISCHEMIA. NO ACUTE PROCESS. EVIDENCE OF ACUTE STROKE: NO. Carotid Doppler Study 12/14/19 00:00 IMPRESSION: NO HEMODYNAMICALLY SIGNIFICANT STENOSIS. Modified Barium Swallow 12/14/19 00:00 IMPRESSION: NO EVIDENCE OF PENETRATION OR ASPIRATION. PLEASE SEE SPEECH PATHOLOGIST REPORT FOR OTHER FINDINGS AND RECOMMENDATIONS. Assessment & Plan - Diagnosis (1) Right basal ganglia embolic stroke Is this a current diagnosis for this admission?: Yes (2) Hypertensive urgency Is this a current diagnosis for this admission?: Yes - Time Time Spent with patient: 15-24 minutes Level of Care: IMCU Anticipated discharge: Acute Rehab Anticipated DC Timeframe: within 24 hours
[2019-12-31] MEDS: ATORVASTATIN CALCIUM 80 MG TABLET PO SCH (21:25)
[2020-01-01] MEDS: METOPROLOL SUCCINATE 50 MG TAB.SR.24H PO SCH (05:54)
[2020-01-01 10:39] VITALS: BP 128/79
[2020-01-01] MEDS: ASPIRIN 81 MG TABLET, ENT COATED PO SCH (11:47)
[2020-01-01] MEDS: AMLODIPINE BESYLATE 10 MG TABLET PO SCH (11:47)
[2020-01-01] MEDS: LOSARTAN POTASSIUM 50 MG TABLET PO SCH (11:47)
[2020-01-01] MEDS: ENOXAPARIN SODIUM INJ 40 MG/0.4 ML DISP.SYRIN SUBCUT SCH (11:47)
[2020-01-01] MEDS: CLOPIDOGREL BISULFATE 75 MG TABLET PO SCH (11:48)
== END 2020-01-01 11:57 | disposition short-term general hospital (02) | DRG 64 ==
LOC: ER 13:28 → EH 15:24 → 3S 17:19
PROVIDERS: ADMIT Internal Medicine; ATTEND Internal Medicine
PROC: B24BZZ4 Ultrasonography of Heart with Aorta, Transesophageal (ICD-10-PCS; principal; 2019-12-13)
DX: I63.12 Cerebral infarction due to embolism of basilar artery (principal); I63.81 Other cerebral infarction due to occlusion or stenosis of small artery; G81.94 Hemiplegia, unspecified affecting left nondominant side; I10 Essential (primary) hypertension; I16.0 Hypertensive urgency; R47.81 Slurred speech; F17.210 Nicotine dependence, cigarettes, uncomplicated; B96.4 Proteus (mirabilis) (morganii) as the cause of diseases classified elsewhere; B95.2 Enterococcus as the cause of diseases classified elsewhere; W01.0XXA Fall on same level from slipping, tripping and stumbling without subsequent striking against object, initial encounter; R29.700 NIHSS score 0; Z11.59 Encounter for screening for other viral diseases; Z79.899 Other long term (current) drug therapy; Z88.6 Allergy status to analgesic agent; Z91.14 Patient's other noncompliance with medication regimen
CPT/HCPCS: 36415; 70450; 70553; 71045; 74230; 80048; 80053; 80061; 81001; 82550; 82553; 82962; 84484; 85025; 85610; 85730; 87086; 87088; 87186; 87635; 93005; 93010; 93306; 93880; 96372; A9576; C9803; J1650